=== PATIENT | male | born 1960 | race Caucasian/White ===

== ENCOUNTER 2021-01-02 03:58 | Emergency (ER) | payer OTHER, SELFPAY ==
--- NOTE | ~2021-01-02 | US_ITS ---
EXAMINATION: US ABDOMEN LIMITED CLINICAL INFORMATION: Right upper quadrant pain. COMPARISON: None TECHNIQUE: Real-time imaging of the right upper quadrant abdominal viscera. FINDINGS: PANCREAS: The visualized proximal portion of the pancreas is unremarkable. The distal portion is obscured secondary to overlying bowel gas. LIVER: The liver is normal in size. The liver contour is normal. There is diffusely increased liver parenchymal echogenicity, consistent with hepatic steatosis. Focal sparing is noted near the gallbladder. There is a left hepatic lobe cyst measuring up to 1.5 cm. There is no intrahepatic biliary duct dilatation seen. GALLBLADDER: The gallbladder is physiologically distended without evidence of stones, sludge, polyps, wall thickening or pericholecystic fluid. COMMON BILE DUCT: Normal in caliber measuring 0.5 cm in diameter. RIGHT KIDNEY: No hydronephrosis. No renal calculi or focal parenchymal lesions. The kidney measures 11.9 cm in maximum dimension. FREE FLUID: None. US/US abdomen limited IMPRESSION: 1. No acute findings identified. 2. Hepatic steatosis.
--- NOTE | ~2021-01-02 | XR_ITS ---
EXAMINATION: XR CHEST CLINICAL INFORMATION: Cough COMPARISON: 08/21/2016 TECHNIQUE: Frontal view of the chest was obtained. FINDINGS: Lung volumes are symmetric. No focal consolidation is seen. No evidence of pneumothorax, pleural effusion, or pulmonary edema. The cardiomediastinal contour is unremarkable. No acute osseous findings are seen. XR/XR chest 1V IMPRESSION: No acute cardiopulmonary findings.
[2021-01-02 04:00] VITALS: BP 146/87; BP 170/102; PULSE 85; RESP 27; TEMP 36.5; O2SAT 98; BMI 34.9
--- NOTE | 2021-01-02 04:02 | ECG_ITS ---
Test Reason : CP Blood Pressure : / mmHG Vent. Rate : 081 BPM Atrial Rate : 081 BPM P-R Int : 148 ms QRS Dur : 084 ms QT Int : 402 ms P-R-T Axes : 047 -14 026 degrees QTc Int : 466 ms Sinus rhythm with Premature atrial complexes Otherwise normal ECG No previous ECGs available Referred By: Nicky Cade Electronically Signed By:ABHI TALBOT MD
--- NOTE | 2021-01-02 04:14 | ED_ITS ---
HPI - General Adult General Chief complaint: Abdominal Pain Stated complaint: RIGHT ARM,LOW ABD PAIN Time Seen by Provider: 01/02/21 04:02 Source: patient Mode of arrival: EMS History of Present Illness HPI narrative: This is a 60-year-old male without significant past medical history use brought in by EMS after they were called for acute right arm pain radiating into the back as well into the right upper abdomen without associated nausea, vomiting, urinary symptoms, fevers, chills or numbness/tingling/weakness in the right upper extremity. He states he began becoming more anxious because the pain was not resolving and his called EMS. He denies any recent traveling or calf swelling/redness/pain. Patient denies any smoking or drug history and rarely uses alcohol. EMS gave 4 baby aspirin and nitro EN route. Related Data Home Medications Medication Instructions Recorded Confirmed No Known Home Meds 01/02/21 01/02/21 Allergies Allergy/AdvReac Type Severity Reaction Status Date / Time No Known Allergies Allergy Verified 01/02/21 04:25 Review of Systems Review of Systems: Pertinent positives and negatives as stated in HPI 10 point review of systems is otherwise negative. PMFSH Past Medical History Source: nursing notes reviewed Social History Social History Smoking Status: Never smoker Use of substances other than those prescribed or required for medical reasons: No Advance Directives: No Physical Exam Vital Signs: Vital Signs: Last Vital Signs Temp 97.7 F 01/02/21 04:00 Pulse 85 01/02/21 04:00 Resp 27 H 01/02/21 04:00 BP 146/87 H 01/02/21 04:00 Pulse Ox 98 01/02/21 04:00 Body Mass Index 34.9 VITAL SIGNS: Reviewed. GENERAL: Well developed, well nourished, anxious. HEAD: Normocephalic/atraumatic EYES: PERRLA, EOMI OROPHARYNX: no oral lesions noted, posterior pharynx clear NECK: Supple, no adenopathy LUNGS: Normal breath sounds, tachypnea, No adventitious sounds or accessory muscle use. SpO2<> CARDIOVASCULAR: Regular rate and rhythm without noted murmurs, no JVD or lower extremity edema radial pulses as well as symmetric blood pressures. ABDOMEN: Obese, Soft, non-tender, non-distended with bowel sounds. MUSCULOSKELETAL: No tenderness, deformities, or effusions noted on gross inspection. EXTREMITIES: No erythema, edema, pain SKIN: Inspection of the skin reveals no rashes NEUROLOGIC: Alert and oriented x 4. Strength and sensation to light touch were grossly intact x 4. Course Course Course Narrative: This is a 60-year-old male with history of clinical presentation muscle spasm, gallbladder pathology, less likely pneumonia or cardiac in etiology. Review of all investigations to include ultrasound are negative for evidence of any acute pathology. No clinical suspicion for arterial or venous etiologies based on clinical exam and patient has no risk factors, inconsistent with history/EKG findings unlikely. All results and findings were discussed with patient at bedside and he was discharged home in stable condition with recommendations to follow-up with his primary care provider. Medical Decision Making Lab Data Result diagrams: 01/02/21 04:16 01/02/21 04:16 Labs: Lab Results 01/02/21 01/02/21 01/02/21 Range/Units 04:16 04:16 04:16 WBC 6.8 (4.8-10.8) X10*3/uL RBC 4.54 L (4.60-5.80) X10*6/uL Hgb 14.0 (14.0-18.0) g/dl Hct 43.3 (42-52) % MCV 95.4 (80-98) fL MCH 30.8 (27.0-33.0) pg MCHC 32.3 (31.0-36.0) g/dl RDW 13.4 (11.0-16.0) % Plt Count 220 (160-400) X10*3/uL MPV 9.2 L (9.4-12.4) fL Immature Gran % (Auto) 0.1 (0.0-0.4) % Neut % (Auto) 44.8 L (45-73) % Lymph % (Auto) 42.3 H (20-40) % Cottle % (Auto) 10.5 (2-11) % Eos % (Auto) 1.6 (0-4) % Baso % (Auto) 0.7 (0-2) % Lymph # (Auto) 2.9 (1.2-4.9) X10*3/uL Cottle # (Auto) 0.7 (0.1-1.2) X10*3/uL Eos # (Auto) 0.1 (0.0-0.4) X10*3/uL Baso # (Auto) 0.1 (0.0-0.2) X10*3/uL Abs Immat Gran (auto) 0.01 (0.00-0.03) X10*3/uL Absolute Neuts (auto) 3.1 (2.0-8.3) X10*3/uL Absolute Nucleated RBC 0.000 (0.0-0.012) X10*3/uL Nucleated RBC % (auto) 0.0 (0.0-0.2) /100WBC PT (10.8-13.0) SEC INR (0.9-1.1) D-Dimer NG/ML Sodium 138 (135-145) mmol/L Potassium 4.0 (3.3-5.1) mmol/L Chloride 102 (96-108) mmol/L Carbon Dioxide 24 (22-29) mmol/L Anion Gap 16 (12-20) BUN 15 (9-16) mg/dL Creatinine 1.00 (0.5-1.4) mg/dL Estim Creat Clear Calc 89.6 Estimated GFR > 60 Random Glucose 132 H (60-115) mg/dL Calcium 9.3 (8.4-10.2) mg/dL Total Bilirubin 0.4 (0.0-1.0) mg/dL AST 18 (5-37) U/L ALT 29 (0-40) U/L Alkaline Phosphatase 67 (39-117) U/L Troponin I High Sens < 3.5 (<3.5-35.0) ng/L Total Protein 6.7 (6.5-8.0) g/dL Albumin 4.2 (3.5-5.0) g/dL Lipase 24 (8-78) U/L Urine Color Urine Appearance Urine pH (5.0-8.0) Ur Specific Willard (1.005-1.025) Urine Protein (NEG-TRACE) MG/DL Urine Glucose (UA) (NEG) MG/DL Urine Ketones (NEG) MG/DL Urine Blood (NEG) Urine Nitrite (NEG) Ur Leukocyte Esterase (NEG) Urine RBC (0) /HPF Urine WBC (0-4) /HPF Ur Squamous Epith Cells /LPF Urine Bacteria /LPF Hyaline Casts /LPF Urine Mucus /LPF 01/02/21 01/02/21 Range/Units 04:16 04:20 WBC (4.8-10.8) X10*3/uL RBC (4.60-5.80) X10*6/uL Hgb (14.0-18.0) g/dl Hct (42-52) % MCV (80-98) fL MCH (27.0-33.0) pg MCHC (31.0-36.0) g/dl RDW (11.0-16.0) % Plt Count (160-400) X10*3/uL MPV (9.4-12.4) fL Immature Gran % (Auto) (0.0-0.4) % Neut % (Auto) (45-73) % Lymph % (Auto) (20-40) % Cottle % (Auto) (2-11) % Eos % (Auto) (0-4) % Baso % (Auto) (0-2) % Lymph # (Auto) (1.2-4.9) X10*3/uL Cottle # (Auto) (0.1-1.2) X10*3/uL Eos # (Auto) (0.0-0.4) X10*3/uL Baso # (Auto) (0.0-0.2) X10*3/uL Abs Immat Gran (auto) (0.00-0.03) X10*3/uL Absolute Neuts (auto) (2.0-8.3) X10*3/uL Absolute Nucleated RBC (0.0-0.012) X10*3/uL Nucleated RBC % (auto) (0.0-0.2) /100WBC PT 13.4 H (10.8-13.0) SEC INR 1.1 (0.9-1.1) D-Dimer < 200 NG/ML Sodium (135-145) mmol/L Potassium (3.3-5.1) mmol/L Chloride (96-108) mmol/L Carbon Dioxide (22-29) mmol/L Anion Gap (12-20) BUN (9-16) mg/dL Creatinine (0.5-1.4) mg/dL Estim Creat Clear Calc Estimated GFR Random Glucose (60-115) mg/dL Calcium (8.4-10.2) mg/dL Total Bilirubin (0.0-1.0) mg/dL AST (5-37) U/L ALT (0-40) U/L Alkaline Phosphatase (39-117) U/L Troponin I High Sens (<3.5-35.0) ng/L Total Protein (6.5-8.0) g/dL Albumin (3.5-5.0) g/dL Lipase (8-78) U/L Urine Color DARK YELLOW Urine Appearance HAZY Urine pH 5.5 (5.0-8.0) Ur Specific Willard >= 1.030 H (1.005-1.025) Urine Protein NEG (NEG-TRACE) MG/DL Urine Glucose (UA) NEG (NEG) MG/DL Urine Ketones NEG (NEG) MG/DL Urine Blood TRACE (NEG) Urine Nitrite NEG (NEG) Ur Leukocyte Esterase NEG (NEG) Urine RBC 0-2 (0) /HPF Urine WBC 1-4 (0-4) /HPF Ur Squamous Epith Cells 1+ /LPF Urine Bacteria NONE /LPF Hyaline Casts 0-2 /LPF Urine Mucus 3+ /LPF ECG Data Attestation: I personally reviewed and interpreted this ECG as follows: Prior ECG tracings: not available for review Interpretation: Normal sinus rhythm, HR-81, no evidence of acute ischemia, PA/QRS/QTC are within normal limits. Discharge Plan Discharge Clinical Impression: Arm pain Qualifiers: Laterality: right Qualified Code(s): M79.601 - Pain in right arm Patient Disposition: Home, Self-Care Instructions: Muscle Spasm (ED), Arm Pain (ED) Additional Instructions: Please follow-up with your primary care provider as scheduled. Do not hesitate to return to the emergency department for any acute worsening or change in your symptoms. Prescriptions: No Action No Known Home Meds RF: 0 Referrals: Oziel Elliott MD [Primary Care Provider] - 2 days (Re-evaluation after unexposed couple right shoulder pain,?Passed kidney stone but otherwise negative workup.)
[2021-01-02 04:24] LABS: Basophils Absolute Auto 0.1 X10*3/uL (0.0-0.2); Basophils Percent Auto 0.7 % (0-2); Eosinophils Absolute Auto 0.1 X10*3/uL (0.0-0.4); Eosinophils Percent Auto 1.6 % (0-4); Hematocrit 43.3 % (42-52); Imm Gran Abs Auto 0.01 X10*3/uL (0.00-0.03); Imm Gran Pct Auto 0.1 % (0.0-0.4); Lymphocytes Absolute Auto 2.9 X10*3/uL (1.2-4.9); Lymphocytes Percent Auto 42.3 % (20-40); MANUAL DIFF FLAG NO; Mean Corpuscular HGB Conc 32.3 g/dl (31.0-36.0); Mean Corpuscular Hemoglobin 30.8 pg (27.0-33.0); Mean Corpuscular Volume 95.4 fL (80-98); Mean Platelet Volume 9.2 fL (9.4-12.4); Monocytes Absolute Auto 0.7 X10*3/uL (0.1-1.2); Monocytes Percent Auto 10.5 % (2-11); Neutrophils Absolute Auto 3.1 X10*3/uL (2.0-8.3); Neutrophils Percent Auto 44.8 % (45-73); Platelet Count 220 X10*3/uL (160-400); Red Blood Count 4.54 X10*6/uL (4.60-5.80); Red Cell Distribution Width 13.4 % (11.0-16.0); White Blood Count 6.8 X10*3/uL (4.8-10.8)
[2021-01-02 04:27] LABS: Appearance Urine HAZY; Color Urine DARK YELLOW; Glucose Urine UA NEG (NEG); Leukocyte Esterase Urine NEG (NEG); Nitrite Urine NEG (NEG); PH 5.5 (5.0-8.0); Specific Gravity - Urine >= 1.030 (1.005-1.025); Urine Blood TRACE (NEG); Urine Ketones NEG (NEG); Urine Protein NEG (NEG-TRACE)
[2021-01-02 04:35] LABS: INTERNATIONAL NORM RATIO 1.1 (0.9-1.1); Prothrombin Time 13.4 SEC (10.8-13.0)
[2021-01-02 04:35] LABS: RBC Urine 0-2 /HPF (0); Squamous Epithelial Cell Urine 1+ /LPF
[2021-01-02 04:36] LABS: Hyaline Casts Urine 0-2 /LPF; Mucus Urine 3+ /LPF
[2021-01-02 04:48] LABS: Alanine Aminotransferase 29 U/L (0-40); Albumin Level 4.2 g/dL (3.5-5.0); Alkaline Phosphatase 67 U/L (39-117); Anion Gap 16 (12-20); Aspartate Amino Transferase 18 U/L (5-37); Bilirubin Total 0.4 mg/dL (0.0-1.0); Blood Urea Nitrogen 15 mg/dL (9-16); Calcium 9.3 mg/dL (8.4-10.2); Carbon Dioxide 24 mmol/L (22-29); Chloride 102 mmol/L (96-108); Creatinine Clr Calc Pharmacy 89.6; Estimated Glomerular Filt Rate > 60; Glucose Random 132 mg/dL (60-115); Lipase 24 U/L (8-78); Sodium 138 mmol/L (135-145); Total Protein 6.7 g/dL (6.5-8.0)
[2021-01-02 04:51] LABS: Troponin-I High Sensitivity < 3.5 ng/L (<3.5-35.0)
[2021-01-02 05:23] LABS: D Dimer < 200 NG/ML
[2021-01-02] MEDS: Acetaminophen 325 MG TABLET 975 MG PO (06:01)
--- NOTE | 2021-01-02 06:44 | PC.NURSE ---
Pt arrived by [facility] after calling 911 for right shoulder pain. Pt denies chest pain/sob/diff breathing/nausea vomiting. Per ems: pt was hypertensive, treated with 324mg asa and 0.4mg tab nitro. pt stated pain was unresolved by treatment. IV 18g Lac Skin p/w/d. reported tylenol for pain control was effective. awaiting us at this time.
== END 2021-01-02 06:55 | disposition home or self-care (01) ==
PROVIDERS: Emergency Provider Student in an Organized Health Care Education/Training Program; PCP Internal Medicine
DX: M79.601 Pain in right arm (principal)
CPT/HCPCS: 36415; 71045; 76705; 80053; 81001; 83690; 84484; 85025; 85379; 85610; 93005; 99284

== ENCOUNTER 2021-01-11 06:18 | Outpatient (REF) | payer OTHER, SELFPAY ==
[2021-01-11 07:14] LABS: MANUAL DIFF FLAG NO
[2021-01-11 07:21] LABS: Basophils Absolute Auto 0.1 X10*3/uL (0.0-0.2); Basophils Percent Auto 0.8 % (0-2); Eosinophils Absolute Auto 0.1 X10*3/uL (0.0-0.4); Eosinophils Percent Auto 1.6 % (0-4); Hematocrit 47.1 % (42-52); Hemoglobin 15.3 g/dl (14.0-18.0); Imm Gran Abs Auto 0.03 X10*3/uL (0.00-0.03); Imm Gran Pct Auto 0.4 % (0.0-0.4); Lymphocytes Absolute Auto 2.3 X10*3/uL (1.2-4.9); Lymphocytes Percent Auto 30.3 % (20-40); Mean Corpuscular HGB Conc 32.5 g/dl (31.0-36.0); Mean Corpuscular Volume 95.3 fL (80-98); Mean Platelet Volume 9.6 fL (9.4-12.4); Monocytes Absolute Auto 0.7 X10*3/uL (0.1-1.2); Monocytes Percent Auto 9.5 % (2-11); Neutrophils Absolute Auto 4.4 X10*3/uL (2.0-8.3); Neutrophils Percent Auto 57.4 % (45-73); Platelet Count 249 X10*3/uL (160-400); Red Blood Count 4.94 X10*6/uL (4.60-5.80); Red Cell Distribution Width 13.5 % (11.0-16.0); White Blood Count 7.7 X10*3/uL (4.8-10.8)
[2021-01-11 07:52] LABS: Alanine Aminotransferase 32 U/L (0-40); Albumin Level 4.6 g/dL (3.5-5.0); Alkaline Phosphatase 79 U/L (39-117); Anion Gap 15 (12-20); Aspartate Amino Transferase 21 U/L (5-37); Blood Urea Nitrogen 17 mg/dL (9-16); Calcium 9.5 mg/dL (8.4-10.2); Carbon Dioxide 27 mmol/L (22-29); Chloride 100 mmol/L (96-108); Cholesterol 182 mg/dL; Estimated Glomerular Filt Rate > 60; Glucose Fasting 100 mg/dL (60-99); HDL Cholesterol 40 mg/dL; LDL Cholesterol Calculated 119 mg/dl; Sodium 138 mmol/L (135-145); Total Protein 7.7 g/dL (6.5-8.0); Triglycerides 117 mg/dL; Troponin-I High Sensitivity < 3.5 ng/L (<3.5-35.0)
== END 2021-01-11 06:19 | disposition home or self-care (01) ==
LOC: HO.LAB 06:18
PROVIDERS: PCP Nurse Practitioner Family; Visit Provider Nurse Practitioner Family
DX: R07.9 Chest pain, unspecified (principal)
CPT/HCPCS: 36415; 80053; 80061; 84484; 85025

== ENCOUNTER → 2021-01-16 09:08 | Outpatient (REF) | payer OTHER, SELFPAY ==
--- NOTE | 2021-01-16 09:12 | CA_ITS ---
Acquisition Time: 2021-01-16 09:40:28 Total Exercise Time: 00:07:01 Test Indications: chest pain Medications: Protocol: DARRELL Max HR: 166 BPM 105% of Pred: 158 BPM Max BP: 156/098 mmHG Max Work Load: 8.5 METS Exercise stress test using Darrell protocol. Total of 7 min 1 sec. METS 8.50, TAPHR up to 103 %. EKG with isolated PVC's. No ischemic changes seen during exercise or in recovery period. Normotensive response to exercise. Test reviewed with Dr. Shah. Referred By: Radha Dailey Overread By: Dorinda Malik NP
== END ==
LOC: HO.CARD 09:08
PROVIDERS: Visit Provider Nurse Practitioner Family
DX: R07.9 Chest pain, unspecified (principal)
CPT/HCPCS: 93016; 93017; 93018

== ENCOUNTER → 2021-01-26 09:03 | Outpatient (BNVA) | payer OTHER, SELFPAY | PROVIDERS: PCP Nurse Practitioner Family; Visit Provider Internal Medicine ==

== ENCOUNTER → 2021-02-01 08:30 | Outpatient (REF) | payer OTHER, SELFPAY ==
--- NOTE | ~2021-02-01 | NM_ITS ---
EXERCISE MYOCARDIAL PERFUSION STUDY INDICATION: Chest pain, assess for coronary disease and ischemia TECHNIQUE: The patient was brought in for an exercise perfusion study on 02/01/2021. Patient performed exercise as per Gio protocol and was injected 35 mCi of sestamibi once target heart rate was achieved. Images were obtained using the SPECT gamma camera interlaced with the gating device. Images were obtained in supine position. Resting perfusion study was performed on 02/02/2021. Patient was administered 35 mCi of sestamibi intravenously at rest. Images were then obtained in supine position. Total DLP 82mGy-cm. Images were processed with the software and compared side to side in short axis, horizontal long axis and vertical long axis views. FINDINGS: Raw images were reviewed. The stress perfusion study showed no significant perfusion abnormality. Both uncorrected as well as CT attenuation corrected images were reviewed. The gated study shows normal LV systolic function with calculated LVEF of > 70%. LV cavity is normal in size. The gated study shows normal wall thickening and contraction of segments. Resting study shows no significant perfusion abnormality. Both uncorrected as well as CT attenuation corrected images were reviewed. Gating at rest reveals normal wall motion with ejection fraction at 71%. The findings are consistent with no reversible or fixed perfusion abnormality. NM/NM cardiolite stress test IMPRESSION: 1. Myocardial perfusion imaging study shows normal myocardial perfusion. No evidence of any ischemia or infarction. 2. Gated LVEF is > 70% during stress and rest. 3. Transient ischemic dilatation not present. EKG component of the test reported separately.
--- NOTE | 2021-02-01 08:30 | CA_ITS ---
Acquisition Time: 2021-02-01 08:39:41 Total Exercise Time: 00:05:21 Test Indications: Dyspnea Medications: CYCLOBENZAPRINE ESCITALOPRAM LISINOPRIL OMEPRAZOLE Protocol: DARRELL Max HR: 144 BPM 91% of Pred: 158 BPM Max BP: 166/102 mmHG Max Work Load: 7.0 METS Exercise stress nuclear using Darrell protocol. Total of 5 min 21 sec. Pt tolerated well, denies any anginal sx. EKG with frequent PAC's after exercise. No ischemic changes seen during exercise or in recovery. Nuclear images to follow. Hypertensive response to exercise. Test reviewed with Dr. Joiner Referred By: Sean Joiner Overread By: Dorinda Malik NP
== END ==
LOC: HO.CARD 08:30
PROVIDERS: Visit Provider Internal Medicine
DX: R07.2 Precordial pain (principal); R06.02 Shortness of breath
CPT/HCPCS: 78452; 93016; 93017; 93018; A9500

== ENCOUNTER → 2021-03-09 08:17 | Outpatient (REF) | payer OTHER, SELFPAY ==
--- NOTE | 2021-03-09 08:20 | CA_ITS ---
Transthoracic Echocardiogram Patient (Last, First, Middle): Tank Ledezma, Gender: Male Date of : 1960 Age: 60 Procedure Date: 03/09/2021 Procedure Type: Transthoracic Echocardiogram Location: OP Height: 172.72 cm Weight: 106.14 kg BSA: 2.18 m2 Heart Rate: bpm BP: 116 / 79 mmHg Counter Intelligence: IBAN Turner MD: Sean Joiner MD Hand Braille Transcriber: Leobardo Shah MD Symptoms: R07.2 - Precordial pain Study Quality: Good ECG Rhythm: Sinus Conclusions: - 1. [id number] dilatation of ascending aorta at 4.4 cm with effacement of sinotubular junction 2. Normal LV systolic function with grade 1 diastolic dysfunction 3. Mild eccentric aortic regurgitation 4. Normal RV systolic pressure 5. No pericardial effusion Findings Procedure Information The patient receives contrast. Left Ventricle Normal left ventricular size, thickness, and systolic function. The visually estimated ejection fraction is between 60-65%. Spectral Doppler is indicative of an impaired relaxation filling pattern. E/E prime ratio is <8, consistent with normal filling pressures. Evidence suggests grade I (mild) diastolic dysfunction. Right Ventricle Normal right ventricular cavity size and systolic function. Atria The left atrium is normal in size. There is no evidence of interatrial shunt. The right atrium is normal in size. Aortic Valve Normal aortic valve structure and function. There is no aortic valve stenosis. There is mild aortic valve regurgitation. Mitral Valve Likely normal mitral valve structure and function. There is trace mitral valve regurgitation. There is no mitral valve stenosis. Pulmonic Valve The pulmonic valve is likely normal. Tricuspid Valve Likely normal tricuspid valve structure and function. There is trace tricuspid valve regurgitation. The right ventricular systolic pressure is normal. The right ventricular systolic pressure is 25 mmHg. Normal right atrial pressure. There is no evidence of pulmonary hypertension. Great Vessels The pulmonary artery was not well visualized. There is moderate dilatation of the ascending aorta measuring 4.40 cm. Venous The inferior vena cava is normal in size and collapses greater than 50% with inspiration. Pericardium/Pleural There is no evidence of pericardial effusion. Prior Study Comparison No prior study available for comparison. Measurements 2D Linear Measurements RVIDd: 3.08 RVIDd Index: 1.41 IVSd: 0.98 0.6-0.9/0.6-1.0 cm LVIDd: 5.42 3.9-5.3/4.2-5.9 cm LVIDd Index: 2.49 2.4-3.2/2.2-3.1 cm/m2 LVIDs: 3.83 2.0-3.6 cm LVPWd: 1.00 0.7-1.1 cm Ao Root: 3.40 2.1-3.5 cm LA Diam: 3.50 2.7-3.8/3.0-4.0 cm LAIDs Index: 1.61 1.5-2.3 cm/m2 LV Mass: 256.01 67-162/88-224 g LV Mass Index: 117.44 43-95/49-115 g/m2 LVOT Diam: 2.20 3.0+(-)1.3 cm 2D Systolic Function EF 4C: 58.80 >55% EF 2C: 59.20 >55% EF BiP: 57.90 >55% Mitral Valve MV Pk E: 0.50 MV PK A: 0.71 MV Decel Time: 275.00 E/A: 0.70 E'Lateral: 6.85 E'Medial: 5.44 E/E' Med: 9.10 E/E' Lat: 7.30 Aortic Valve AoV Pk Liam: 1.27 AoV Mn Liam: 0.93 AoV VTI: 0.22 AoV Pk Grad: 6.00 Aov Mn Grad: 4.00 MADDY Cont.VTI: 3.57 LVOT LVOT Pk Liam: 1.32 LVOT Mn Liam: 0.84 LVOT VTI: 0.21 LVOT Pk Grad: 7.00 LVOT Mn Grad: 3.00 LVOT Diam: 2.20 LVOT Area: 3.80 Diastolic Function MV Pk E: 0.50 MV Pk A: 0.71 E/A: 0.70 E'Medial: 5.44 E/E' Med: 9.10 E' Laterial: 6.85 E/E' Lat: 7.30 Tricuspid Valve TR Pk Liam: 2.35 TR Pk Grad: 22.00 RA Press: 3.00 RVSP: 25.00 Great Vessels Aorta Ao Root-2D: 3.40 2.0-3.7 cm Ao Asc: 4.40 2.1-3.4 cm Ao Arch: 4.30 Updated in Other Vendor System with Status of Final Leobardo Shah MD electronically signed on 03/10/2021 3:41:36 PM with status of Final
== END ==
LOC: HO.CARD 08:17
PROVIDERS: Visit Provider Internal Medicine
DX: R07.2 Precordial pain (principal)
CPT/HCPCS: 93306; Q9957

== ENCOUNTER → 2021-03-16 14:12 | Outpatient (BNVA) | payer OTHER, SELFPAY | PROVIDERS: PCP Internal Medicine; Visit Provider Internal Medicine | DX: I71.2 Thoracic aortic aneurysm, without rupture (principal); R07.2 Precordial pain; I10 Essential (primary) hypertension | CPT/HCPCS: 99212 ==

== ENCOUNTER 2021-06-16 06:44 | Outpatient (REF) | payer OTHER, SELFPAY ==
[2021-06-16 07:46] LABS: Alanine Aminotransferase 27 U/L (0-40); Albumin Level 4.3 g/dL (3.5-5.0); Alkaline Phosphatase 70 U/L (39-117); Anion Gap 13 (12-20); Aspartate Amino Transferase 18 U/L (5-37); Bilirubin Total 0.4 mg/dL (0.0-1.0); Blood Urea Nitrogen 14 mg/dL (9-16); Calcium 9.5 mg/dL (8.4-10.2); Carbon Dioxide 28 mmol/L (22-29); Chloride 104 mmol/L (96-108); Cholesterol 188 mg/dL; Estimated Glomerular Filt Rate > 60; Glucose Fasting 96 mg/dL (60-99); HDL Cholesterol 43 mg/dL; LDL Cholesterol Calculated 123 mg/dl; Potassium 4.5 mmol/L (3.3-5.1); Sodium 140 mmol/L (135-145); Total Protein 7.1 g/dL (6.5-8.0); Triglycerides 110 mg/dL
[2021-06-16 08:08] LABS: Prostate Specific Antigen 1.33 ng/mL (<0.05-4.0); Vitamin D 25-OH Total 35.7 ng/mL (>30)
== END 2021-06-16 06:45 | disposition home or self-care (01) ==
LOC: HO.LAB 06:44
PROVIDERS: Absent Provider Internal Medicine; PCP Internal Medicine; Visit Provider Internal Medicine
DX: Z00.00 Encounter for general adult medical examination without abnormal findings (principal); Z12.5 Encounter for screening for malignant neoplasm of prostate; E78.5 Hyperlipidemia, unspecified; E55.9 Vitamin D deficiency, unspecified; I71.2 Thoracic aortic aneurysm, without rupture
CPT/HCPCS: 36415; 80053; 80061; 82306; 84153

== ENCOUNTER 2021-06-20 08:38 | Outpatient (REF) | payer OTHER, SELFPAY ==
--- NOTE | ~2021-06-20 | CT_ITS ---
EXAMINATION: CT ANGIOGRAM CHEST CLINICAL INFORMATION: This is a 60-year-old male with thoracic aortic aneurysm without rupture. COMPARISON: None TECHNIQUE: Multiple axial images were obtained through the chest after the administration of 70 mL of Omnipaque 350 intravenous contrast. Extensive vascular post-processing including two-dimensional and three-dimensional reformatted images were created and reviewed on an independent workstation. This CT examination was performed using dose optimization techniques as appropriate, variously including the following: *Automated exposure control *Adjustment of mA and/or kV according to patient size (this includes techniques or standardized protocols for targeted exams where dose is matched to indication/reason for exam; i.e. extremities or head) *Use of iterative reconstruction technique DLP: 189 mGy-cm FINDINGS: VASCULAR FINDINGS: There is enlargement of the ascending aorta. Measurements were calculated in centimeters are as follows: At the aortic root: 4.0 x 4.5 cm. Distal ascendin.3 x 4.3 cm. Transverse arch: 2.8 x 3.0 cm. Proximal descending 2.8 x 3.0 cm. Distal descendin.5 x 2.6 cm. No aortic dissection is seen. A normal branching aortic arch is seen with a common origin to the left common carotid artery and brachiocephalic artery, respectively. Scattered calcified atherosclerotic disease is seen within the aortic arch. The celiac artery appears patent. The superior mesenteric artery appears patent. NONVASCULAR FINDINGS: LUNGS: The lungs are clear with no evidence of inflammation or nodules. MEDIASTINUM: No bulky mediastinal adenopathy is seen. There is a left atrial appendage present. No pericardial effusion is seen. PLEURA: There is no pleural effusion. No pleural mass or thickening. AXILLA: No lymphadenopathy. There is a 1 cm subcutaneous soft tissue density along the left anterior chest wall. This is seen to the left of the midline. The etiology is unclear. Clinical correlation is recommended. VISUALIZED UPPER ABDOMEN: There is diffuse low density to the liver which may represent hepatic steatosis. There is a 1 cm x 1.5 cm low-density area seen in segment 2 of the liver. This is too small and only partially visualized and cannot be adequately characterize. The initial step in evaluation could be an ultrasound of the liver. OSSEOUS STRUCTURES: Diffuse degenerative disc disease changes are noted in the thoracic spine. CT/CT angio chest IMPRESSION: 1. The maximum diameter of the ascending thoracic aorta again measures 4.0 x 4.5 cm. This is aneurysmal for a patient of this age as noted below from the standard measurements. 2. Probable hepatic steatosis. 3. There is a 1 cm subcutaneous soft tissue density along the left anterior chest wall. Clinical correlation is recommended. 4. There is a 1.5 cm low-density area in segment 2 of the liver. Ultrasound is recommended. Normal aortic diameters (in millimeters) Ascending aorta: 31+0.16 x age. Descending aorta: 21+0.16 x age. Reference: [employer] J 2006 Shannan; 40 (3): 175-178
[2021-06-20] MEDS: iohexoL 350 MG/ML 100 ML INFUS..BTL IV (10:02)
== END 2021-06-20 08:39 | disposition home or self-care (01) ==
LOC: HO.CT 08:38
PROVIDERS: Visit Provider Internal Medicine
DX: I71.2 Thoracic aortic aneurysm, without rupture (principal)
CPT/HCPCS: 71275; Q9967

== ENCOUNTER → 2021-06-28 13:19 | Outpatient (BNVA) | payer OTHER, SELFPAY | PROVIDERS: PCP Internal Medicine; Referring Provider Internal Medicine; Visit Provider Internal Medicine | DX: I71.2 Thoracic aortic aneurysm, without rupture (principal); I10 Essential (primary) hypertension; R07.2 Precordial pain | CPT/HCPCS: 99212 ==

== ENCOUNTER → 2021-11-01 10:43 | Outpatient (BNVA) | payer OTHER, SELFPAY | PROVIDERS: PCP Internal Medicine; Visit Provider Urology | DX: N48.6 Induration penis plastica (principal) | CPT/HCPCS: 99202 ==

== ENCOUNTER 2021-11-01 11:44 | Outpatient (REF) | payer OTHER, SELFPAY ==
[2021-11-06 14:06] LABS: Testosterone, Total 164 ng/dL (250-1100)
== END 2021-11-01 11:45 | disposition home or self-care (01) ==
LOC: HO.10HDL 11:44
PROVIDERS: Visit Provider Urology
DX: E29.1 Testicular hypofunction (principal); N48.6 Induration penis plastica
CPT/HCPCS: 36415; 84402; 84403

== ENCOUNTER → 2021-12-07 07:32 | Outpatient (REF) | payer OTHER, SELFPAY ==
--- NOTE | 2021-12-07 07:34 | CA_ITS ---
Transthoracic Echocardiogram Patient (Last, First, Middle): Tank Ledezma, Gender: Male Date of : 1960 Age: 61 Procedure Date: 12/07/2021 Procedure Type: Transthoracic Echocardiogram Location: OP Height: 177.8 cm Weight: 110.22 kg BSA: 2.27 m2 Heart Rate: bpm BP: 115 / 80 mmHg Communications Planner: ANNAMARIE Turner MD: Sean Joiner MD Clinical Professor: Leobardo Shah MD Symptoms: I71.2 - Thoracic aortic aneurysm, without rupture Study Quality: Fair/Contrast ECG Rhythm: Sinus Conclusions: - 1. Normal LV systolic function with grade 1 diastolic dysfunction 2. Trivial aortic regurgitation 3. Dilated ascending aorta at 4.4 cm, unchanged from before 4. Normal RV systolic pressure 5. No pericardial effusion Findings Procedure Information Contrast agent, definity, is being given per protocol without apparent complications. Left Ventricle Normal left ventricular size, thickness, and systolic function. The visually estimated ejection fraction is between 55-60%. Spectral Doppler is indicative of an impaired relaxation filling pattern. E/E prime ratio is <8, consistent with normal filling pressures. Evidence suggests grade I (mild) diastolic dysfunction. Right Ventricle Normal right ventricular cavity size and systolic function. Atria Both atria are normal in size. There is no evidence of interatrial shunt. Aortic Valve Normal aortic valve structure and function. There is no aortic valve stenosis. There is trace (trivial) aortic valve regurgitation. Mitral Valve Normal mitral valve structure and function. There is trace mitral valve regurgitation. There is no mitral valve stenosis. Pulmonic Valve The pulmonic valve is likely normal. There is trace pulmonic valve regurgitation. Tricuspid Valve Normal tricuspid valve structure. There is mild tricuspid valve regurgitation. The right ventricular systolic pressure is normal. The right ventricular systolic pressure is 35 mmHg. Normal right atrial pressure. There is no evidence of pulmonary hypertension. Great Vessels There is mild dilatation of the ascending aorta measuring 4.40 cm. Venous The inferior vena cava is normal in size and collapses greater than 50% with inspiration. Pericardium/Pleural There is no evidence of pericardial effusion. Prior Study Comparison No significant change compared to prior study dated: 03/09/2021. Measurements 2D Linear Measurements IVSd: 1.10 0.6-0.9/0.6-1.0 cm LVIDd: 4.52 3.9-5.3/4.2-5.9 cm LVIDd Index: 1.99 2.4-3.2/2.2-3.1 cm/m2 LVIDs: 2.73 2.0-3.6 cm LVPWd: 1.03 0.7-1.1 cm Ao Root: 4.30 2.1-3.5 cm LA Diam: 3.40 2.7-3.8/3.0-4.0 cm LAIDs Index: 1.50 1.5-2.3 cm/m2 LV Mass: 209.80 67-162/88-224 g LV Mass Index: 92.42 43-95/49-115 g/m2 LVOT Diam: 2.20 3.0+(-)1.3 cm 2D Systolic Function EF 4C: 58.80 >55% EF 2C: 56.00 >55% EF BiP: 57.60 >55% Aortic Valve AoV Pk Liam: 1.23 AoV Mn Liam: 0.84 AoV VTI: 0.25 AoV Pk Grad: 6.00 Aov Mn Grad: 3.00 MADDY Cont.VTI: 2.99 LVOT LVOT Pk Liam: 0.93 LVOT Mn Liam: 0.65 LVOT VTI: 0.19 LVOT Pk Grad: 3.00 LVOT Mn Grad: 2.00 LVOT Diam: 2.20 LVOT Area: 3.80 Right Ventricle TAPSE (mm): 26.00 TVS' Liam: 13.30 Tricuspid Valve TR Pk Liam: 2.59 TR Pk Grad: 27.00 RA Press: 8.00 RVSP: 35.00 Great Vessels Aorta Ao Root-2D: 4.30 2.0-3.7 cm Ao Asc: 4.40 2.1-3.4 cm Ao Arch: 3.60 Updated in Other Vendor System with Status of Final Leobardo Shah MD electronically signed on 12/08/2021 3:50:44 PM with status of Final
== END ==
LOC: HO.CARD 07:32
PROVIDERS: PCP Internal Medicine; Visit Provider Internal Medicine
DX: I71.2 Thoracic aortic aneurysm, without rupture (principal)
CPT/HCPCS: 93306; Q9957

== ENCOUNTER → 2022-02-21 09:34 | Outpatient (BNVA) | payer OTHER, SELFPAY | PROVIDERS: PCP Internal Medicine; Referring Provider Internal Medicine; Visit Provider Internal Medicine | DX: I71.2 Thoracic aortic aneurysm, without rupture (principal); I10 Essential (primary) hypertension; Z79.899 Other long term (current) drug therapy | CPT/HCPCS: 93005; 99212 ==

== ENCOUNTER 2022-03-06 19:27 | Inpatient (IN) | payer OTHER, SELFPAY ==
--- NOTE | ~2022-03-06 | XR_ITS ---
EXAMINATION: XR CHEST CLINICAL INFORMATION: Cough COMPARISON: 01/02/2021 TECHNIQUE: Frontal view of the chest was obtained. FINDINGS: No significant abnormality is noted involving the heart, lungs, mediastinum, bony thorax or soft tissues. XR/XR chest 1V IMPRESSION: Unremarkable examination.
--- NOTE | ~2022-03-06 | CT_ITS ---
EXAMINATION: CT ABDOMEN AND PELVIS WITHOUT CONTRAST CLINICAL INFORMATION: Diffuse abdominal pain COMPARISON: Ultrasound abdomen 01/02/2021, CT angiogram chest 06/20/2021 TECHNIQUE: Multidetector volumetric imaging was performed from the superior aspect of the liver through the pubic symphysis. Sagittal and coronal reformatted images were obtained on the technologist's workstation. This CT examination was performed using dose optimization techniques as appropriate, variously including the following: *Automated exposure control *Adjustment of mA and/or kV according to patient size (this includes techniques or standardized protocols for targeted exams where dose is matched to indication/reason for exam; i.e. extremities or head) *Use of iterative reconstruction technique DLP: 872 mGy-cm FINDINGS: LUNG BASES: The visualized lung bases are unremarkable. LIVER, GALLBLADDER, AND BILIARY TREE: The liver is normal in size, shape, and attenuation. There is a benign simple cyst in the left lobe of the liver. No suspicious solid focal hepatic lesion or biliary ductal dilatation is present. The gallbladder is contracted but otherwise unremarkable with no evidence of radiopaque gallstones, gallbladder wall thickening, or obvious pericholecystic inflammatory changes. PANCREAS: Unremarkable. SPLEEN: Unremarkable. ADRENAL GLANDS: Unremarkable. KIDNEYS AND URETERS: The kidneys are normal in size, shape, and attenuation. No hydronephrosis, hydroureter, or calculi seen. No perinephric stranding. BLADDER: Unremarkable. GASTROINTESTINAL TRACT: A small hiatal hernia is present. The small and large bowel are unremarkable. The appendix is abnormal. It is dilated at 1.4 cm. There is high density material within the proximal portion. There is a small locule of air seen distally. Some periappendiceal inflammatory changes are present. No extraluminal gas or periappendiceal fluid collections are seen.. ABDOMINAL WALL: No significant hernia is appreciated. LYMPH NODES: No retroperitoneal lymphadenopathy. VASCULAR: Minimal calcific plaque without aneurysm PELVIC VISCERA: Unremarkable. OSSEOUS STRUCTURES: Mild degenerative changes present in the spine without bony destructive lesions. CT/CT abdomen pelvis wo con IMPRESSION: Findings are suggestive of very early uncomplicated appendicitis with a dilated appendix with high density material within the lumen and some mild periappendiceal inflammatory changes. Other incidental findings as described above. Fleischner guidelines were followed.
[2022-03-06 21:16] VITALS: BP 130/80; PULSE 76; RESP 18; TEMP 36.6; O2SAT 95; BMI 35.9
[2022-03-06 21:27] LABS: MANUAL DIFF FLAG NO
[2022-03-06 21:28] LABS: Basophils Percent Auto 0.2 % (0-2); Eosinophils Percent Auto 0.2 % (0-4); Hematocrit 44.2 % (42.0-52.0); Hemoglobin 14.7 g/dl (14.0-18.0); Imm Gran Abs Auto 0.04 X10*3/uL (0.00-0.03); Imm Gran Pct Auto 0.3 % (0.0-0.4); Lymphocytes Percent Auto 7.6 % (20-40); Mean Corpuscular HGB Conc 33.3 g/dl (31.0-36.0); Mean Corpuscular Hemoglobin 30.8 pg (27.0-33.0); Mean Corpuscular Volume 92.7 fL (80.0-98.0); Mean Platelet Volume 9.2 fL (9.4-12.4); Monocytes Absolute Auto 0.6 X10*3/uL (0.1-1.2); Monocytes Percent Auto 4.4 % (2-11); Neutrophils Percent Auto 87.3 % (45-73); Platelet Count 228 X10*3/uL (160-400); Red Blood Count 4.77 X10*6/uL (4.60-5.80); Red Cell Distribution Width 13.6 % (11.0-16.0); White Blood Count 12.5 X10*3/uL (4.8-10.8)
[2022-03-06 21:43] LABS: Alanine Aminotransferase 23 U/L (0-40); Albumin Level 4.3 g/dL (3.5-5.0); Alkaline Phosphatase 74 U/L (39-117); Anion Gap 14 (12-20); Aspartate Amino Transferase 16 U/L (5-37); Bilirubin Total 0.6 mg/dL (0.0-1.0); Blood Urea Nitrogen 13 mg/dL (9-16); Calcium 9.9 mg/dL (8.4-10.2); Carbon Dioxide 25 mmol/L (22-29); Chloride 101 mmol/L (96-108); Creatinine Clr Calc Pharmacy 98.2; Estimated Glomerular Filt Rate > 60; Glucose Random 126 mg/dL (60-115); Potassium 4.5 mmol/L (3.3-5.1); Sodium 135 mmol/L (135-145); Total Protein 7.6 g/dL (6.5-8.0)
[2022-03-06 21:44] LABS: COVID-19 Test Negative (Negative); IDNOW Serial# 08D9AD1C; Influenza A Negative (Negative); Influenza B2 Negative (Negative)
[2022-03-06 23:33] VITALS: BP 88/58; PULSE 74; RESP 24; O2SAT 93
--- NOTE | 2022-03-06 23:48 | ECG_ITS ---
Test Reason : ABDOMINAL PAIN Blood Pressure : / mmHG Vent. Rate : 073 BPM Atrial Rate : 073 BPM P-R Int : 164 ms QRS Dur : 090 ms QT Int : 418 ms P-R-T Axes : 062 -10 025 degrees QTc Int : 460 ms Normal sinus rhythm Normal ECG When compared with ECG of 02-JAN-2021 03:05, Premature atrial complexes are no longer Present Referred By: Nicky Cade Electronically Signed By:SHUBHAM TRAYLOR
[2022-03-06 23:51] VITALS: BP 114/72
[2022-03-07] VITALS (22 sets, daily range): BP systolic 99–135; BP diastolic 58–83; PULSE 73–91; RESP 18–24; TEMP 36.3–37.3; O2SAT 85–99
[2022-03-07] MEDS: 0.9 % Sodium Chloride 1,000 ML 999 ML IV ×2 (00:20→01:47)
--- NOTE | 2022-03-07 01:04 | ED_ITS ---
HPI - Abdominal Pain General Chief Complaint: Abdominal Pain Stated Complaint: Stomach Pain Time Seen by Provider: 03/06/22 23:48 Source: patient Mode of arrival: ambulatory History of Present Illness HPI narrative: 61-year-old male with past medical history Peyronie's disease, ascending aortic aneurysm, hypertension, who presents with abdominal pain that he describes as ?everywhere? since this morning with multiple episodes of nausea and vomiting as well as diarrhea and chills. He otherwise denies any shortness of breath/chest pain/palpitations or urinary symptoms. Related Data Home Medications Medication Instructions Recorded Confirmed lisinopril 30 mg tablet 30 mg PO DAILY 06/28/21 02/21/22 omeprazole 20 mg capsule,delayed 20 mg PO DAILY PRN cap 10/23/21 02/21/22 release Previous Rx's Medication Instructions Recorded escitalopram oxalate 10 mg tablet 10 mg PO DAILY #30 tab 06/24/21 pentoxifylline 400 mg 400 mg PO BID 90 Days #180 tab 11/01/21 tablet,extended release tadalafil 5 mg tablet 5 mg PO DAILY 90 Days #90 tab 11/01/21 vitamin E (dl, acetate) 450 mg 450 mg PO DAILY 90 Days #90 cap 11/01/21 (1,000 unit) capsule Allergies Allergy/AdvReac Type Severity Reaction Status Date / Time No Known Allergies Allergy Verified 02/21/22 09:43 Review of Systems Review of Systems Pertinent positives and negatives as stated in HPI 10 point review of systems is otherwise negative. [facility] Past Medical History Source: nursing notes reviewed Medical History Anxiety Chest pain Dyslipidemia Essential hypertension Family history of coronary artery disease GERD without esophagitis Hypertension Impacted cerumen, left ear Insomnia Obesity (BMI 30-39.9) Tubular adenoma of colon Vitamin D deficiency Surgical History History of colonoscopy with polypectomy No significant past surgical history Family History Family History Mother Diabetes Heart problem CVA (cerebral vascular accident) Father Heart problem Social History Social History Housing: House Alcohol intake: current Alcohol intake frequency: a few times a month Patient Tobacco Use Status: Former Tobacco user Advance Directives: No service: No Current occupational status: retired Physical Exam ED Vital Signs: Vital Signs - 24 hr 03/06/22 21:16 03/06/22 23:33 03/06/22 23:51 Temperature 97.8 F Pulse Rate 76 74 Respiratory Rate 18 24 H Blood Pressure 130/80 88/58 L 114/72 Pulse Oximetry 95 93 03/07/22 01:04 Temperature 98.0 F Pulse Rate 81 Respiratory Rate 24 H Blood Pressure 128/79 Pulse Oximetry 98 BMI result Body Mass Index 35.9 VITAL SIGNS: Reviewed. GENERAL: Well developed, well nourished, in no acute distress. HEAD: Normocephalic/atraumatic EYES: PERRLA, EOMI EARS: Ext canals without abnormality OROPHARYNX: no oral lesions noted, posterior pharynx clear and non-erythematous without noted tonsillar enlargement/erythema/exudates NECK: Supple, no adenopathy LUNGS: Normal breath sounds. No adventitious sounds or accessory muscle use. SpO2<95> CARDIOVASCULAR: Regular rate and rhythm without noted murmurs ABDOMEN: Soft, diffusely tender, non-distended with hypoactive bowel sounds. MUSCULOSKELETAL: No tenderness, deformities, or effusions noted on gross inspection. EXTREMITIES: No cyanosis, clubbing or edema. SKIN: Inspection of the skin reveals no rashes NEUROLOGIC: Alert and oriented x 4. Strength and sensation to light touch were grossly intact x 4. Course Course Course Narrative: 0110: 61-year-old male with history and clinical presentation concerning for possible perforation, diverticulitis, SBO and on review of all investigations is noted to have a leukocytosis and CT findings consistent with early appendicitis. Patient received pain medication, antibiotics, IV fluids. This case was discussed with Dr. Lindsey who accepts admission. MDM - Abdominal Pain Lab Data Result diagrams: 03/06/22 21:18 03/06/22 21:18 Labs: Lab Results 03/06/22 03/06/22 03/06/22 Range/Units 21:18 21:18 21:18 WBC 12.5 H (4.8-10.8) X10*3/uL RBC 4.77 (4.60-5.80) X10*6/uL Hgb 14.7 (14.0-18.0) g/dl Hct 44.2 (42.0-52.0) % MCV 92.7 (80.0-98.0) fL MCH 30.8 (27.0-33.0) pg MCHC 33.3 (31.0-36.0) g/dl RDW 13.6 (11.0-16.0) % Plt Count 228 (160-400) X10*3/uL MPV 9.2 L (9.4-12.4) fL Immature Gran % (Auto) 0.3 (0.0-0.4) % Neut % (Auto) 87.3 H (45-73) % Lymph % (Auto) 7.6 L (20-40) % [place] % (Auto) 4.4 (2-11) % Eos % (Auto) 0.2 (0-4) % Baso % (Auto) 0.2 (0-2) % Lymph # (Auto) 1.0 L (1.2-4.9) X10*3/uL [place] # (Auto) 0.6 (0.1-1.2) X10*3/uL Eos # (Auto) 0.0 (0.0-0.4) X10*3/uL Baso # (Auto) 0.0 (0.0-0.2) X10*3/uL Abs Immat Gran (auto) 0.04 H (0.00-0.03) X10*3/uL Absolute Neuts (auto) 11.0 H (2.0-8.3) x10*3/uL Absolute Nucleated RBC 0.000 (0.0-0.012) X10*3/uL Nucleated RBC % (auto) 0.0 (0.0-0.2) /100WBC Sodium 135 (135-145) mmol/L Potassium 4.5 (3.3-5.1) mmol/L Chloride 101 (96-108) mmol/L Carbon Dioxide 25 (22-29) mmol/L Anion Gap 14 (12-20) BUN 13 (9-16) mg/dL Creatinine 0.97 (0.5-1.4) mg/dL Estim Creat Clear Calc 98.2 Estimated GFR > 60 Random Glucose 126 H (60-115) mg/dL Calcium 9.9 (8.4-10.2) mg/dL Total Bilirubin 0.6 (0.0-1.0) mg/dL AST 16 (5-37) U/L ALT 23 (0-40) U/L Alkaline Phosphatase 74 (39-117) U/L Total Protein 7.6 (6.5-8.0) g/dL Albumin 4.3 (3.5-5.0) g/dL COVID-19 (KATELYN) (Negative) COVID-19 Clin Com Influenza Type A (ZANDER) Negative (Negative) Influenza Type B (ZANDER) Negative (Negative) Influenza A & B Note See Note 03/06/22 Range/Units 21:18 WBC (4.8-10.8) X10*3/uL RBC (4.60-5.80) X10*6/uL Hgb (14.0-18.0) g/dl Hct (42.0-52.0) % MCV (80.0-98.0) fL MCH (27.0-33.0) pg MCHC (31.0-36.0) g/dl RDW (11.0-16.0) % Plt Count (160-400) X10*3/uL MPV (9.4-12.4) fL Immature Gran % (Auto) (0.0-0.4) % Neut % (Auto) (45-73) % Lymph % (Auto) (20-40) % [place] % (Auto) (2-11) % Eos % (Auto) (0-4) % Baso % (Auto) (0-2) % Lymph # (Auto) (1.2-4.9) X10*3/uL [place] # (Auto) (0.1-1.2) X10*3/uL Eos # (Auto) (0.0-0.4) X10*3/uL Baso # (Auto) (0.0-0.2) X10*3/uL Abs Immat Gran (auto) (0.00-0.03) X10*3/uL Absolute Neuts (auto) (2.0-8.3) x10*3/uL Absolute Nucleated RBC (0.0-0.012) X10*3/uL Nucleated RBC % (auto) (0.0-0.2) /100WBC Sodium (135-145) mmol/L Potassium (3.3-5.1) mmol/L Chloride (96-108) mmol/L Carbon Dioxide (22-29) mmol/L Anion Gap (12-20) BUN (9-16) mg/dL Creatinine (0.5-1.4) mg/dL Estim Creat Clear Calc Estimated GFR Random Glucose (60-115) mg/dL Calcium (8.4-10.2) mg/dL Total Bilirubin (0.0-1.0) mg/dL AST (5-37) U/L ALT (0-40) U/L Alkaline Phosphatase (39-117) U/L Total Protein (6.5-8.0) g/dL Albumin (3.5-5.0) g/dL COVID-19 (KATELYN) Negative (Negative) COVID-19 Clin Com See Note Influenza Type A (ZANDER) (Negative) Influenza Type B (ZANDER) (Negative) Influenza A & B Note ECG Data Attestation: I personally reviewed and interpreted this ECG as follows: Prior ECG tracings: available for review Interpretation: Normal sinus rhythm, HR-73, no STEMI, TN/QRS/QTC are within normal limits. Discharge Plan Discharge Clinical Impression: Acute appendicitis, Ascending aortic aneurysm, Peyronie's disease, Essential hypertension Patient Disposition: Admitted As Inpatient Prescriptions: No Action escitalopram oxalate 10 mg tablet 10 mg PO DAILY Qty: 30 0RF omeprazole 20 mg capsule,delayed release(DR/EC) 20 mg PO DAILY PRN (Reason: acid reflux) 0RF lisinopril 30 mg tablet 30 mg PO DAILY 0RF pentoxifylline 400 mg tablet extended release 400 mg PO BID 90 Days Qty: 180 1RF Rx Instructions: administer with meals tadalafil 5 mg tablet 5 mg PO DAILY 90 Days Qty: 90 1RF vitamin E (dl, acetate) 450 mg (1,000 unit) capsule 450 mg PO DAILY 90 Days Qty: 90 1RF
[2022-03-07 01:41] LABS: Lactic Acid 1.6 mmol/L (0.5-2.0)
[2022-03-07] MEDS: Piperacillin Sodium/Tazobactam 3.375 GM in 0.9 % Sodium Chloride 50 ML IV (01:46)
[2022-03-07] MEDS: fentaNYL citrate/PF 100 MCG/2 ML VIAL 25 MCG IVPUSH (01:46)
[2022-03-07] MEDS: Dextrose 5 % and Lactated Ring 1,000 ML 125 ML IVCONT ×2 (03:48→19:28)
[2022-03-07 04:54] LABS: MANUAL DIFF FLAG NO
[2022-03-07 04:55] LABS: Basophils Percent Auto 0.2 % (0-2); Eosinophils Percent Auto 0.1 % (0-4); Hematocrit 39.3 % (42.0-52.0); Hemoglobin 12.8 g/dl (14.0-18.0); Imm Gran Abs Auto 0.06 X10*3/uL (0.00-0.03); Imm Gran Pct Auto 0.4 % (0.0-0.4); Lymphocytes Absolute Auto 1.3 X10*3/uL (1.2-4.9); Mean Corpuscular HGB Conc 32.6 g/dl (31.0-36.0); Mean Corpuscular Hemoglobin 30.6 pg (27.0-33.0); Mean Platelet Volume 9.1 fL (9.4-12.4); Monocytes Absolute Auto 0.9 X10*3/uL (0.1-1.2); Monocytes Percent Auto 6.4 % (2-11); Neutrophils Absolute Auto 11.1 x10*3/uL (2.0-8.3); Neutrophils Percent Auto 82.9 % (45-73); Platelet Count 196 X10*3/uL (160-400); Red Blood Count 4.18 X10*6/uL (4.60-5.80); Red Cell Distribution Width 13.5 % (11.0-16.0); White Blood Count 13.3 X10*3/uL (4.8-10.8)
[2022-03-07 05:12] LABS: Anion Gap 11 (12-20); Blood Urea Nitrogen 13 mg/dL (9-16); Carbon Dioxide 26 mmol/L (22-29); Chloride 104 mmol/L (96-108); Creatinine Clr Calc Pharmacy 99.3; Estimated Glomerular Filt Rate > 60; Glucose Random 141 mg/dL (60-115); Potassium 4.9 mmol/L (3.3-5.1); Sodium 136 mmol/L (135-145)
[2022-03-07 05:24] LABS: Calcium 8.6 mg/dL (8.4-10.2)
[2022-03-07] MEDS: HYDROmorphone HCl 1 MG/ML SYRINGE 0.5 MG IVPUSH (06:48)
--- NOTE | 2022-03-07 08:10 | P.HPGS_ITS ---
History of Present Illness History of Present Illness Date of Service: 03/07/22 Chief complaint: Acute Appendicitis Narrative: Tank Ledezma is a 61 year old male Presenting with complaints of abdominal pain in the right lower quadrant pain. The pain began in the periumbilical region and then became more localized to the right lower quadrant. He denies a previous history of similar pain. Pain was associated with fever, chills, nausea without vomiting, and anorexia. He presented to the ED and was found to be tender in the RLQ. WBC was elevated and CT was positive for a dilated and inflamed appendix, consistent with acute appendicitis. Review of Systems Constitutional: Constitutional: Reports chills, Reports fever(s), Denies headache(s) and Reports poor appetite ENT: Denies dizziness and Denies headache(s) Cardiovascular: Cardiovascular: Denies chest pain, Denies rapid heart rate, D enies palpitations and Denies slow heart rate Respiratory: Respiratory: Denies chest congestion, Denies cough, Denies pain on inspiration and Denies wheezing Gastrointestinal: Gastrointestinal: Reports abdominal pain, Reports bloating, Denies change in stool character, Denies constipation, Reports diarrhea, Reports nausea, Denies vomiting and Denies hematemesis Musculoskeletal: Musculoskeletal: Denies back pain, Denies arthralgias, Denies joint swelling and Denies numbness Integumentary/Breasts: Skin/Breast: Denies change in pigmentation, Denies erythema and Denies rash Neurologic: Denies dizziness, Denies headache(s) and Denies numbness Psychiatric: Psychiatric: Denies anxiety and Denies depression Endocrine: Endocrine: Denies palpitations Hematologic/Lymphatic: Hematologic/Lymphatic: Denies easy bleeding, Denies easy bruising and Denies lymphadenopathy Allergic/Immunologic: Allergic/Immunologic: Denies wheezing PMFSH Past Medical History Medical History Anxiety Chest pain Dyslipidemia Essential hypertension Family history of coronary artery disease GERD without esophagitis Hypertension Impacted cerumen, left ear Insomnia Obesity (BMI 30-39.9) Tubular adenoma of colon Vitamin D deficiency Family History Family History Mother Diabetes Heart problem CVA (cerebral vascular accident) Father Heart problem Surgical History Surgical History History of colonoscopy with polypectomy No significant past surgical history Social History Social History Housing: House Alcohol intake: current Alcohol intake frequency: a few times a month Patient Tobacco Use Status: Former Tobacco user Advance Directives: Yes Advance Directives on File: Yes Advance Directives Date on File: 08/22/20 service: No Current occupational status: retired Meds Allergies Allergy/AdvReac Type Severity Reaction Status Date / Time No Known Allergies Allergy Verified 02/21/22 09:43 Active Medications: Current Medications Acetaminophen (Acetaminophen 325 Mg Tablet) 650 mg PO QID PRN PRN Reason: headache, temp > 101 Hydromorphone HCl (Hydromorphone Hcl 1 Mg/Ml Syringe) 0.5 mg IVPUSH Q3H PRN; Protocol PRN Reason: Pain, Severe (Pain Scale 7-10) Last Admin: 03/07/22 06:48 Dose: 0.5 mg Documented by: Dextrose/Lactated Ringer's (D5lr) 1,000 mls @ 125 mls/hr IVCONT .Q8H BENITO Last Admin: 03/07/22 03:48 Dose: 125 mls/hr Documented by: Piperacillin Sod/Tazobactam (Sod 3.375 gm/ Sodium Chloride) 50 mls @ 100 mls/hr IV Q6H BENITO Ondansetron HCl (Ondansetron Hcl 4 Mg/2 Ml Vial) 4 mg IVPUSH QID PRN PRN Reason: Nausea Oxycodone HCl (Oxycodone Hcl Immed Release 5 Mg Tablet) 5 mg PO Q6H PRN PRN Reason: Pain, Moderate (Pain Scale 4-6 Pharmacy Consult (Consult Rx Perform Med Rec) 1 each MISCELLANE ONCE PRN PRN Reason: Consult order Sodium Chloride (0.9 % Sodium Chloride Flush 3 Ml Syringe) 3 ml IVFLUSH QSHIFT BENITO Zolpidem Tartrate (Zolpidem Tartrate 5 Mg Tablet) 5 mg PO BEDTIME PRN PRN Reason: Insomnia Home Medications Medication Instructions Recorded Confirmed Last Taken Type lisinopril 30 mg tablet 30 mg PO DAILY 06/28/21 02/21/22 Unknown History omeprazole 20 mg capsule,delayed 20 mg PO DAILY PRN cap 10/23/21 02/21/22 Unknown History release Physical Exam Vital Signs: Vital Signs: Last Vital Signs Temp 98.1 F 03/07/22 02:00 Pulse 83 03/07/22 07:13 Resp 18 03/07/22 07:13 BP 99/69 03/07/22 07:13 Pulse Ox 98 03/07/22 07:13 BMI result Body Mass Index 35.9 Const: General: cooperative, comfortable and well developed Nutritional Appearance: well nourished Orientation/consciousness: patient oriented x3 Eyes: Sclerae: sclerae normal EOM: EOMs intact bilaterally Neck: Neck: Yes normal visual inspection Resp: Effort & Inspection: normal respiratory effort, no cough, no respiratory distress and no stridor Cardio: Jugular venous distension: no JVD GI: Inspection: Yes normal to inspection Palpation (GI): Soft to palpation, Tenderness to palpation present (GI) in the RLQ and at McBurney's point, no guarding, not rigid and No hepatosplenomegaly present Percussion: Yes normal to percussion Auscultation: normal bowel sounds Rectal Exam - Male: Yes deferred Skin: General skin exam: dry skin Rashes: no rashes Neuro: General: patient oriented x3 and no focal motor deficits Extrem: General: Yes full ROM and Yes no clubbing, cyanosis or edema Psych: Appearance: grossly normal Results Results Labs: Short CBC 03/06/22 03/07/22 Range/Units 21:18 04:41 WBC 12.5 H 13.3 H (4.8-10.8) X10*3/uL Hgb 14.7 12.8 L (14.0-18.0) g/dl Hct 44.2 39.3 L (42.0-52.0) % Plt Count 228 196 (160-400) X10*3/uL BMP 03/06/22 03/07/22 21:18 04:41 Sodium 135 136 Potassium 4.5 4.9 Chloride 101 104 Carbon Dioxide 25 26 BUN 13 13 Creatinine 0.97 0.96 Calcium 9.9 8.6 D Liver Function 03/06/22 Range/Units 21:18 Total Bilirubin 0.6 (0.0-1.0) mg/dL AST 16 (5-37) U/L ALT 23 (0-40) U/L Alkaline Phosphatase 74 (39-117) U/L Albumin 4.3 (3.5-5.0) g/dL Assessment and Plan (1) Acute appendicitis: Status: Acute Plan 61 year old male patient with pain in the right lower quadrant found on workup to have evidence of acute appendicitis. I reviewed the treatment options and after a discussion of the procedure, alternatives and risks, he consents to a laparoscopic or possible open appendectomy. Quality Stroke Does the patient have a stroke diagnosis?: No VTE Prior VTE?: No VTE Risk Level:: Surgical - high VTE Device Contraindication: N/A - Device Ordered VTE Drug Contraindication: Treatment Not Indicated Procedures Date of Service Date of Service: 03/07/22
--- NOTE | 2022-03-07 08:34 | PHA.MEDREC ---
Pharmacy Consult ? Medication Reconciliation Pharmacy has completed the medication reconciliation. Patient reports he only takes two medications blood pressure and anxiety medication. Berenice Saravia, PharmD
--- NOTE | 2022-03-07 08:37 | PM.EVENT ---
Event Note Date of Service: 03/07/22 Event Note: Full consult to follow. Low cardiac risk for appendectomy. Due to ascending aortic aneurysm avoid any hypertension.
--- NOTE | 2022-03-07 09:16 | HE.PHANOTE ---
Spoke with Dr. Hill. Since Zosyn and Cefotetan were due has the same time, will hold off Zosyn until after procedure. Berenice Saravia, GrisD
--- NOTE | 2022-03-07 09:27 | MHC.CM.PN ---
Attempted to meet with patient in regards to discharge planning. Patient currently at same day surgery. Will attempt to meet again. Continue to monitor for d/c needs.
--- NOTE | 2022-03-07 09:39 | P.CONAN_ITS ---
HPI - Anesthesia Eval Consult details Narrative: for appendectomy PMFSH Active Problems Active Problems: All Active Problems (Updated 03/07/22 @ 09:36 by Torri Allison, RN) Precordial chest pain (Acute) SOB (shortness of breath) (Acute) Ascending aortic aneurysm (Acute) Peyronie's disease (Acute) Hepatic cyst (Acute) Acute appendicitis (Acute) Anxiety (Acute) Obesity (BMI 30-39.9) (Acute) Insomnia (Acute) GERD without esophagitis (Acute) Impacted cerumen, left ear (Acute) Vitamin D deficiency (Acute) Dyslipidemia (Acute) Essential hypertension (Acute) Hypertension (Acute) Family history of coronary artery disease (Acute) Chest pain (Acute) Past Medical History Medical History (Updated 03/07/22 @ 09:36 by Torri Allison, CARLOS) Anxiety Ascending aortic aneurysm Chest pain Dyslipidemia Essential hypertension Family history of coronary artery disease GERD without esophagitis Hypertension Impacted cerumen, left ear Insomnia Obesity (BMI 30-39.9) Tubular adenoma of colon Vitamin D deficiency Family History Family History Mother Diabetes Heart problem CVA (cerebral vascular accident) Father Heart problem Family history of problems with anesthesia: No Surgical History Surgical History History of colonoscopy with polypectomy No significant past surgical history History of Problems with Anesthesia: No Social History Social History Housing: House Alcohol intake: current Alcohol intake frequency: a few times a month Patient Tobacco Use Status: Former Tobacco user Advance Directives Date on File: 08/22/20 service: No 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 Allergies Allergy/AdvReac Type Severity Reaction Status Date / Time No Known Allergies Allergy Verified 02/21/22 09:43 Active Medications: Current Medications Acetaminophen (Acetaminophen 325 Mg Tablet) 650 mg PO QID PRN PRN Reason: headache, temp > 101 Hydromorphone HCl (Hydromorphone Hcl 1 Mg/Ml Syringe) 0.5 mg IVPUSH Q3H PRN; Protocol PRN Reason: Pain, Severe (Pain Scale 7-10) Last Admin: 03/07/22 06:48 Dose: 0.5 mg Documented by: Dextrose/Lactated Ringer's (D5lr) 1,000 mls @ 125 mls/hr IVCONT .Q8H BENITO Last Admin: 03/07/22 03:48 Dose: 125 mls/hr Documented by: Piperacillin Sod/Tazobactam (Sod 3.375 gm/ Sodium Chloride) 50 mls @ 100 mls/hr IV Q6H BENITO Ondansetron HCl (Ondansetron Hcl 4 Mg/2 Ml Vial) 4 mg IVPUSH QID PRN PRN Reason: Nausea Oxycodone HCl (Oxycodone Hcl Immed Release 5 Mg Tablet) 5 mg PO Q6H PRN PRN Reason: Pain, Moderate (Pain Scale 4-6 Pharmacy Consult (Consult Rx Perform Med Rec) 1 each MISCELLANE ONCE PRN PRN Reason: Consult order Sodium Chloride (0.9 % Sodium Chloride Flush 3 Ml Syringe) 3 ml IVFLUSH QSHIFT BENITO Zolpidem Tartrate (Zolpidem Tartrate 5 Mg Tablet) 5 mg PO BEDTIME PRN PRN Reason: Insomnia Home Medications Medication Instructions Recorded Confirmed Last Taken Type lisinopril 30 mg tablet 30 mg PO DAILY 06/28/21 03/07/22 Unknown History Exam Exam Date and Time: March 07, 2022 0939 Height,Weight and Vital Signs: Height 5 ft 10 in Weight 113.398 kg Last Vital Signs Temp 98.7 F 03/07/22 09:31 Pulse 79 03/07/22 09:31 Resp 18 03/07/22 09:31 BP 128/72 03/07/22 09:31 Pulse Ox 97 03/07/22 09:31 Pertinent Lab Results Pertinent Lab Results: Laboratory Tests 03/06/22 03/06/22 03/06/22 21:18 21:18 21:18 WBC 12.5 H RBC 4.77 Hgb 14.7 Hct 44.2 MCV 92.7 MCH 30.8 MCHC 33.3 RDW 13.6 Plt Count 228 MPV 9.2 L Immature Gran % (Auto) 0.3 Neut % (Auto) 87.3 H Lymph % (Auto) 7.6 L [place] % (Auto) 4.4 Eos % (Auto) 0.2 Baso % (Auto) 0.2 Lymph # (Auto) 1.0 L [place] # (Auto) 0.6 Eos # (Auto) 0.0 Baso # (Auto) 0.0 Abs Immat Gran (auto) 0.04 H Absolute Neuts (auto) 11.0 H Absolute Nucleated RBC 0.000 Nucleated RBC % (auto) 0.0 Sodium 135 Potassium 4.5 Chloride 101 Carbon Dioxide 25 Anion Gap 14 BUN 13 Creatinine 0.97 Estim Creat Clear Calc 98.2 Estimated GFR > 60 Random Glucose 126 H Lactic Acid Calcium 9.9 Total Bilirubin 0.6 AST 16 ALT 23 Alkaline Phosphatase 74 Total Protein 7.6 Albumin 4.3 COVID-19 (KATELYN) COVID-19 Clin Com Influenza Type A (ZANDER) Negative Influenza Type B (ZANDER) Negative Influenza A & B Note See Note 03/06/22 03/07/22 03/07/22 21:18 01:17 04:41 WBC 13.3 H RBC 4.18 L Hgb 12.8 L Hct 39.3 L MCV 94.0 MCH 30.6 MCHC 32.6 RDW 13.5 Plt Count 196 MPV 9.1 L Immature Gran % (Auto) 0.4 Neut % (Auto) 82.9 H Lymph % (Auto) 10.0 L [place] % (Auto) 6.4 Eos % (Auto) 0.1 Baso % (Auto) 0.2 Lymph # (Auto) 1.3 [place] # (Auto) 0.9 Eos # (Auto) 0.0 Baso # (Auto) 0.0 Abs Immat Gran (auto) 0.06 H Absolute Neuts (auto) 11.1 H Absolute Nucleated RBC 0.000 Nucleated RBC % (auto) 0.0 Sodium Potassium Chloride Carbon Dioxide Anion Gap BUN Creatinine Estim Creat Clear Calc Estimated GFR Random Glucose Lactic Acid 1.6 Calcium Total Bilirubin AST ALT Alkaline Phosphatase Total Protein Albumin COVID-19 (KATELYN) Negative COVID-19 Clin Com See Note Influenza Type A (ZANDER) Influenza Type B (ZANDER) Influenza A & B Note 03/07/22 04:41 WBC RBC Hgb Hct MCV MCH MCHC RDW Plt Count MPV Immature Gran % (Auto) Neut % (Auto) Lymph % (Auto) [place] % (Auto) Eos % (Auto) Baso % (Auto) Lymph # (Auto) [place] # (Auto) Eos # (Auto) Baso # (Auto) Abs Immat Gran (auto) Absolute Neuts (auto) Absolute Nucleated RBC Nucleated RBC % (auto) Sodium 136 Potassium 4.9 Chloride 104 Carbon Dioxide 26 Anion Gap 11 L BUN 13 Creatinine 0.96 Estim Creat Clear Calc 99.3 Estimated GFR > 60 Random Glucose 141 H Lactic Acid Calcium 8.6 D Total Bilirubin AST ALT Alkaline Phosphatase Total Protein Albumin COVID-19 (KATELYN) COVID-19 Clin Com Influenza Type A (ZANDER) Influenza Type B (ZANDER) Influenza A & B Note Airway Mallampati Class: II TM Dist: >3cm Neck ROM: Full Loose/Missing/Broken Teeth: No Heart: ok Lungs: ok Assessment and Plan Final Anesthetic Review Family History of Problems with Anesthesia: No History of Problems with Anesthesia: No NPO: Yes ASA Class: III and Emergency Final Preanesthetic Review: No Changes in Pt Med Stat, Meds/Allgs Chart Reviewed, Consent Obtained/Reviewed and Anes Risks/Benef Reviewed Patient Risk: High Procedure Risk: Intermediate Anesthetic Plan Anesthetic Plan: GA and Agree w/ Assess. and Plan Disposition: Standard PACU
--- NOTE | 2022-03-07 10:09 | P.CONCA_ITS ---
History of Present Illness History of Present Illness Date of Service: 03/07/22 Chief complaint: Acute Appendicitis Narrative: This is a cardiology consultation regarding preoperative risk stratification before appendix surgery. Patient has a history of ascending aortic aneurysm and is followed up in the office. Current admission is mainly for abdominal pain. From the cardiac standpoint, he does not have any symptoms like chest pain or shortness of breath or in fact anything cardiac related at all. The abdominal pain started yesterday according to patient. Per surgery, he is diagnosed with acute appendicitis and needs to go for surgery. Review of Systems Review of Systems: Yes all other systems are reviewed and are negative Constitutional: Constitutional: Reports as per HPI Eyes: Eyes: Reports as per HPI ENT: Reports as per HPI Cardiovascular: Cardiovascular: Reports as per HPI, Denies acrocyanosis, Denies cool extremities, Denies chest pain, Denies leg edema, Denies lightheadedness, Denies palpitations and Denies dyspnea Respiratory: Respiratory: Reports as per HPI, Reports no additional respiratory complaints and Denies dyspnea Gastrointestinal: Gastrointestinal: Reports as per HPI, Reports no additional gastrointestinal complaints and Reports abdominal pain Genitourinary: Genitourinary: Reports no additional male genitourinary complaints and Reports as per HPI Musculoskeletal: Musculoskeletal: Reports no additional musculoskeletal complaints and Reports as per HPI Integumentary/Breasts: Skin/Breast: Reports system reviewed and no additional complaints, except as docu Neurologic: Reports system reviewed and no additional complaints, except as documented and Reports as per HPI Psychiatric: Psychiatric: Reports no additional psychiatric complaints and Reports as per HPI Endocrine: Endocrine: Reports no additional endocrine complaints, Reports as per HPI and Denies palpitations Hematologic/Lymphatic: Hematologic/Lymphatic: Reports no additional hematologic/lymphatic complaints and Reports as per HPI Allergic/Immunologic: Allergic/Immunologic: Reports no additional allergic/immunologic complaints and Reports as per HPI PMF Past Medical History Medical History (Updated 03/07/22 @ 10:11 by Sean Joiner MD) Anxiety Ascending aortic aneurysm Chest pain Dyslipidemia Essential hypertension Family history of coronary artery disease GERD without esophagitis Hypertension Impacted cerumen, left ear Insomnia Obesity (BMI 30-39.9) Tubular adenoma of colon Vitamin D deficiency Family History Family History Mother Diabetes Heart problem CVA (cerebral vascular accident) Father Heart problem Surgical History Surgical History History of colonoscopy with polypectomy No significant past surgical history Social History Social History Housing: House Alcohol intake: current Alcohol intake frequency: a few times a month Patient Tobacco Use Status: Former Tobacco user Advance Directives Date on File: 08/22/20 service: No Current occupational status: retired Meds Allergies Allergy/AdvReac Type Severity Reaction Status Date / Time No Known Allergies Allergy Verified 02/21/22 09:43 Active Medications: Current Medications Acetaminophen (Acetaminophen 325 Mg Tablet) 650 mg PO QID PRN PRN Reason: headache, temp > 101 Fentanyl (Fentanyl Citrate/Pf 100 Mcg/2 Ml Vial) 50 mcg IVPUSH Q5M PRN; Protocol PRN Reason: Pain, Severe (Pain Scale 7-10) Hydromorphone HCl (Hydromorphone Hcl 1 Mg/Ml Syringe) 0.5 mg IVPUSH Q3H PRN; Protocol PRN Reason: Pain, Severe (Pain Scale 7-10) Last Admin: 03/07/22 06:48 Dose: 0.5 mg Documented by: Hydromorphone HCl (Hydromorphone Hcl 0.5 Mg/0.5 Ml Syringe) 0.5 mg IVPUSH Q5M PRN; Protocol PRN Reason: Pain, Severe (Pain Scale 7-10) Dextrose/Lactated Ringer's (D5lr) 1,000 mls @ 125 mls/hr IVCONT .Q8H BENITO Last Admin: 03/07/22 03:48 Dose: 125 mls/hr Documented by: Piperacillin Sod/Tazobactam (Sod 3.375 gm/ Sodium Chloride) 50 mls @ 100 mls/hr IV Q6H BENITO Ondansetron HCl (Ondansetron Hcl 4 Mg/2 Ml Vial) 4 mg IVPUSH QID PRN PRN Reason: Nausea Ondansetron HCl (Ondansetron Hcl 4 Mg/2 Ml Vial) 4 mg IVPUSH ONCE PRN PRN Reason: Nausea and Vomiting Oxycodone HCl (Oxycodone Hcl Immed Release 5 Mg Tablet) 5 mg PO Q6H PRN PRN Reason: Pain, Moderate (Pain Scale 4-6 Pharmacy Consult (Consult Rx Perform Med Rec) 1 each MISCELLANE ONCE PRN PRN Reason: Consult order Sodium Chloride (0.9 % Sodium Chloride Flush 3 Ml Syringe) 3 ml IVFLUSH QSHIFT [facility] Zolpidem Tartrate (Zolpidem Tartrate 5 Mg Tablet) 5 mg PO BEDTIME PRN PRN Reason: Insomnia Home Medications Medication Instructions Recorded Confirmed Last Taken Type lisinopril 30 mg tablet 30 mg PO DAILY 06/28/21 03/07/22 Unknown History Physical Exam Vital Signs: Vital Signs: Last Vital Signs Temp 98.7 F 03/07/22 09:31 Pulse 79 03/07/22 09:31 Resp 18 03/07/22 09:31 BP 128/72 03/07/22 09:31 Pulse Ox 97 03/07/22 09:31 BMI result Body Mass Index 35.9 Const: General: ill appearing Orientation/consciousness: patient oriented x3 HEENT: Other: Unremarkable Head: Yes normal to inspection Neck: Neck: Yes normal visual inspection Chest: Chest palpation & inspection: normal inspection of the chest Resp: Auscultation: clear to auscultation bilaterally Cardio: Palpation: normal PMI Heart sounds: S1 normal heart sound present, S2 normal heart sound present, no gallops, no murmurs and no rubs GI: Palpation (GI): Tenderness to palpation present (GI) Back/Spine/Pelvis: Other: unremarkable Skin: General skin exam: no rashes or lesions noted Neuro: General: patient oriented x3 Extrem: General: Yes normal to inspection Psych: Mental Status: mental status grossly normal Objective Labs and Meds Result diagrams: 03/07/22 04:41 03/07/22 04:41 Lab results: Laboratory Results - last 24 hr 03/06/22 03/06/22 03/06/22 21:18 21:18 21:18 WBC 12.5 H RBC 4.77 Hgb 14.7 Hct 44.2 MCV 92.7 MCH 30.8 MCHC 33.3 RDW 13.6 Plt Count 228 MPV 9.2 L Immature Gran % (Auto) 0.3 Neut % (Auto) 87.3 H Lymph % (Auto) 7.6 L [place] % (Auto) 4.4 Eos % (Auto) 0.2 Baso % (Auto) 0.2 Lymph # (Auto) 1.0 L [place] # (Auto) 0.6 Eos # (Auto) 0.0 Baso # (Auto) 0.0 Abs Immat Gran (auto) 0.04 H Absolute Neuts (auto) 11.0 H Absolute Nucleated RBC 0.000 Nucleated RBC % (auto) 0.0 Sodium 135 Potassium 4.5 Chloride 101 Carbon Dioxide 25 Anion Gap 14 BUN 13 Creatinine 0.97 Estim Creat Clear Calc 98.2 Estimated GFR > 60 Random Glucose 126 H Lactic Acid Calcium 9.9 Total Bilirubin 0.6 AST 16 ALT 23 Alkaline Phosphatase 74 Total Protein 7.6 Albumin 4.3 COVID-19 (KATELYN) COVID-19 Clin Com Influenza Type A (ZANDER) Negative Influenza Type B (ZANDER) Negative Influenza A & B Note See Note 03/06/22 03/07/22 03/07/22 21:18 01:17 04:41 WBC 13.3 H RBC 4.18 L Hgb 12.8 L Hct 39.3 L MCV 94.0 MCH 30.6 MCHC 32.6 RDW 13.5 Plt Count 196 MPV 9.1 L Immature Gran % (Auto) 0.4 Neut % (Auto) 82.9 H Lymph % (Auto) 10.0 L [place] % (Auto) 6.4 Eos % (Auto) 0.1 Baso % (Auto) 0.2 Lymph # (Auto) 1.3 [place] # (Auto) 0.9 Eos # (Auto) 0.0 Baso # (Auto) 0.0 Abs Immat Gran (auto) 0.06 H Absolute Neuts (auto) 11.1 H Absolute Nucleated RBC 0.000 Nucleated RBC % (auto) 0.0 Sodium Potassium Chloride Carbon Dioxide Anion Gap BUN Creatinine Estim Creat Clear Calc Estimated GFR Random Glucose Lactic Acid 1.6 Calcium Total Bilirubin AST ALT Alkaline Phosphatase Total Protein Albumin COVID-19 (KATELYN) Negative COVID-19 Clin Com See Note Influenza Type A (ZANDER) Influenza Type B (ZANDER) Influenza A & B Note 03/07/22 04:41 WBC RBC Hgb Hct MCV MCH MCHC RDW Plt Count MPV Immature Gran % (Auto) Neut % (Auto) Lymph % (Auto) [place] % (Auto) Eos % (Auto) Baso % (Auto) Lymph # (Auto) [place] # (Auto) Eos # (Auto) Baso # (Auto) Abs Immat Gran (auto) Absolute Neuts (auto) Absolute Nucleated RBC Nucleated RBC % (auto) Sodium 136 Potassium 4.9 Chloride 104 Carbon Dioxide 26 Anion Gap 11 L BUN 13 Creatinine 0.96 Estim Creat Clear Calc 99.3 Estimated GFR > 60 Random Glucose 141 H Lactic Acid Calcium 8.6 D Total Bilirubin AST ALT Alkaline Phosphatase Total Protein Albumin COVID-19 (KATELYN) COVID-19 Clin Com Influenza Type A (ZANDER) Influenza Type B (ZANDER) Influenza A & B Note ECG Interpretation: EKG with sinus rhythm at 73/Min; no significant ST-T changes and otherwise unremarkable. Imaging Radiologist's impression: Impressions Abdomen/Pelvis CT 03/07/22 00:15 IMPRESSION: Findings are suggestive of very early uncomplicated appendicitis with a dilated appendix with high density material within the lumen and some mild periappendiceal inflammatory changes. Other incidental findings as described above. Fleischner guidelines were followed. Chest X-Ray 03/07/22 00:19 IMPRESSION: Unremarkable examination. Assessment and Plan (1) Preoperative cardiovascular examination: Status: Acute (2) Ascending aortic aneurysm: Status: Acute (3) Essential hypertension: Status: Acute Plan In the most recent echocardiogram, ascending aortic size was 4.4 cm. This is stable compared to previous imaging studies. In the past, myocardial perfusion study was also unremarkable. He has hypertension blood pressure seems to be fairly stable. He does not have any cardiac symptoms at this time. He needs appendix surgery urgently. Overall, may proceed. Cardiac risk is considered low. It will be important to control his blood pressure in the perioperative. Aggressively due to history of ascending aortic aneurysm. Otherwise, can proceed. Procedures Date of Service Date of Service: 03/07/22
--- NOTE | 2022-03-07 10:58 | P.OP_ITS ---
Operative Note Operative Note Date of Service: 03/07/22 Narrative: Preoperative diagnosis: Acute appendicitis Postoperative diagnosis: Same Procedure: Laparoscopic appendectomy Surgeon: Asim Lindsey MD Habilitation Specialist:none Anesthesia: General endotracheal Indications for procedure:61 year old male with pain in the RLQ found to have appendicitis by CT Operative findings:Acute appendicitis in a retrocecal location Specimen:appendix Estimated blood loss:1 ml Complications: none Procedure details: Patient was brought to the OR and placed in a supine position. After administering general anesthesia the patient's abdomen was prepped with ChloraPrep and draped in a sterile fashion. A surgical time-out was called and consent confirmed. Patient received preoperative antibiotics and Venodyne boots were in place. Local anesthesia consisting of 0.75% Sensorcaine with epinephrine was infiltrated in periumbilical region. A 5 mm incision was made below the umbilicus and carried down through subcutaneous tissue. A Veress needle was then inserted while elevating abdominal cavity with towel clips. After a positive drop test the abdomen was insufflated to a pressure of 15 mm of mercury. The Veress needle was removed and a 5 mm trocar inserted. The camera was then inserted in the abdomen explored. A 2nd 5 mm trocars placed in the lower midline. A 12 mm trocar was then placed in the left lower quadrant. The patient was then placed in a Trendelenburg position and rotated to the left. The appendix was identified in the right lower quadrant and brought up using blunt dissecting clamps. The mesentery of the appendix was then divided using the LigaSure. The appendiceal artery was cauterized and divided using the LigaSure. Dissection was continued down to the base of the cecum. An Endo-ALANNA stapler with a purple reload was then used to divide the appendix at the base with the cecum. The appendix was then placed in Endo-Catch bag and brought out through the left lower quadrant incision. The abdomen was then irrigated with saline solution and suctioned dry. Wounds were checked for hemostasis. CO2 was then evacuated from the abdominal cavity and all trocars removed. Fascia was closed in the left lower quadrant incision using a [id number] 0 Polysorb suture. Skin was closed at all incisions using a subcuticular 4-0 Polysorb suture. Steri-Strips 2 x 2 gauze and Tegaderm were then applied. The patient tolerated the procedure well. Sponge, instrument, needle counts reported as correct. The patient was transferred to PACU in stable condition.
[2022-03-08] MEDS: Dextrose 5 % and Lactated Ring 1,000 ML 125 ML IVCONT (02:24)
[2022-03-08 03:43] VITALS: BP 91/56; PULSE 67; RESP 18; TEMP 36.2; O2SAT 96
--- NOTE | 2022-03-08 07:49 | PM.DS ---
DS: Providers Provider Date of Service: 03/08/22 Date of admission: 03/07/22 01:20 Date of discharge: 03/08/22 Primary care physician: Oziel Elliott MD Admitting clinician: Asim Lindsey Consults: 03/07/22 08:33 Consult to Cardiology Stat Consulting Provider: Sean Joiner Reason for consultation: appendicitis, thoracic aneurism Discharging clinician: Asim Lindsey DS: Diagnosis Discharge Diagnosis (1) Preoperative cardiovascular examination: Status: Acute (2) Ascending aortic aneurysm: Status: Acute (3) Essential hypertension: Status: Acute DS: Summary Hospital Course Hospital Course: Tank Ledezma is a 61 year old male?presenting with complaints of abdominal pain in the right lower quadrant pain.? The pain began in the periumbilical region and then became more localized to the right lower quadrant.? He denies a previous history of similar pain.? Pain was associated with fever, chills, nausea without vomiting, and anorexia.? He presented to the ED and was found to be tender in the RLQ.? WBC was elevated and CT was positive for a dilated and inflamed appendix, consistent with acute appendicitis. Patient has a known history of a thoracic aortic aneurysm which is being observed. Cardiology consultation was obtained prior to surgery. The patient was subsequently taken to the OR for a laparoscopic appendectomy. Operative findings were consistent with a retrocecal appendix with appendicitis. He tolerated the procedure well. He was subsequently started on a regular diet and tolerated this well. On postoperative day 1 patient felt much improved with decreased abdominal pain. He was tolerating regular diet without nausea or vomiting. He was able to ambulate independently. Examination revealed his incisions to be clean, dry, and intact. Patient is to be discharged to home. He will follow up in the office in approximately 1 week. He was given a prescription for pain medication p.r.n.. He was asked to call the office for fever, chills, nausea, vomiting, or other concerns regarding surgery. He expressed understanding and agrees with the plan. Time spent discussing smoking cessation with patient: 3 to 10 minutes Status at Discharge Functional status at discharge: independent ambulation Overall status at discharge: patient is back to baseline Time Spent with Patient Time attestation: Total time spent providing and/or coordinating discharge services: Discharge coordination time: Less than 30 minutes Quality: Safe Use of Opioids Does Pt have an Active Cancer Diagnosis on the Problem List?: No Quality: Stroke Does the patient have a stroke diagnosis?: No Physical Exam Vital Signs: Vital Signs: Last Vital Signs Temp 97.1 F 03/08/22 03:43 Pulse 67 03/08/22 03:43 Resp 18 03/08/22 03:43 BP 91/56 L 03/08/22 03:43 Pulse Ox 96 03/08/22 03:43 BMI result Body Mass Index 35.9 Const: General: comfortable and no acute distress Nutritional Appearance: well nourished Orientation/consciousness: patient oriented x3 Limitations: no limitations Resp: Effort & Inspection: normal respiratory effort, no audible wheezes, no cough and no respiratory distress GI: Other: Trocar incisions are clean, dry, and intact without redness or discharge. Inspection: Yes normal to inspection Palpation (GI): Soft to palpation, nontender, no guarding and not rigid Skin: Other: Warm, dry, no rash Neuro: General: patient oriented x3 Extrem: Other: No edema DS: Data Data Completed and Pending Pending studies at discharge: Pending at discharge 03/07/22 10:31 Surgical [PTH] Routine Labs on day of discharge: Preliminary micro results at discharge 03/07/22 01:17 Blood Culture - Preliminary Blood - Venous No growth after 24 hours. 03/07/22 01:17 Blood Culture - Preliminary Blood - Venous No growth after 24 hours. Discharge Plan Discharge Patient Disposition: Home, Self-Care Discharge Diagnosis: Acute appendicitis Referrals: Oziel Elliott MD [Primary Care Provider] - 1 Week Asim Lindsey MD [Physician] - 1 Week Discharge Medications: New oxycodone 5 mg Tablet 5 mg PO Q6H PRN (Reason: Pain, Moderate (Pain Scale 4-6) Qty: 14 0RF Continued escitalopram oxalate 10 mg tablet 10 mg PO DAILY Qty: 30 0RF lisinopril 30 mg tablet 30 mg PO DAILY 0RF Discharge Orders: Discharge Order (Routine); Ordered 03/08/22 Ordered By: Asim Lindsey Diet: advance to usual diet Activity on Discharge: No heavy lifting Stand Alone Forms: Patient Portal Discharge page Care Plan Goals: Return to normal activity and diet Health Concerns: abdominal pain in the lower abdomen Plan of Treatment: Laparoscopic appendectomy Assessment: Acute appendicitis Discharge Date/Time: 03/08/22 10:27
[2022-03-08 08:00] VITALS: BP 119/70; PULSE 75; RESP 17; TEMP 36.4; O2SAT 97
[2022-03-08] MEDS: lisinopriL 10 MG TABLET 30 MG PO (08:51)
[2022-03-08] MEDS: Escitalopram Oxalate 10 MG TABLET PO (08:52)
[2022-03-08] MEDS: 0.9 % Sodium Chloride Flush 3 ML SYRINGE IVFLUSH (08:52)
[2022-03-08] MEDS: oxyCODONE HCl Immed Release 5 MG TABLET PO (08:58)
--- NOTE | 2022-03-08 09:47 | HO.POSTANES ---
Post Anesthesia Evaluation Post Anesthesia Evaluation Vital Signs: Vital Signs Temp Pulse Resp BP Pulse Ox 03/08/22 08:00 97.5 F 75 17 119/70 97 03/08/22 03:43 97.1 F 67 18 91/56 L 96 03/07/22 23:42 97.3 F 77 19 108/67 96 Anesthesia: General Mental Status: Awake Pain Control: Satisfactory Nausea/Vomiting: None Hydration: Adequate Anesthesia-Related Issues: No Anes. Related Issues
[2022-03-08 09:50] VITALS: O2SAT 95
--- NOTE | 2022-03-08 10:02 | MHC.CM.PN ---
NURSE MEDICAL VOUCHER CLERK NOTE\ ELECTRONIC MEDICAL RECORD REVIEWED ALOBG WITH CASE DISCUSSED WITH STAFF NURSE, MET PATIENT AND HIS . S/P LAP APPY AND WILL BE D/C TODAY . ACTIVE ,INDEPENDENT, IN ALL ADLS AND MOBILITY RETIRED, DRIVES NO SERVICES IN THE HOME. DISCHARGE PLAN HOME WITH NO SERVICES TRANSPORTATION FAMILY PCP DR GOLDSTEIN FOLLOW UP FOR POST [facility] DISCHARGE SURGICAL FOLLOW UP PER SURGEON DISCHAGRE 0RDERS COVID VACINATED WITH EAN AND EAN AND REVA BOOSTER. HCP COPY REQUESTED.
== END 2022-03-08 10:27 | disposition home or self-care (01) | DRG 234 ==
LOC: HO.ED 03-07 01:33 → HO.EDOVER 03-07 01:53 → HO.S3 03-07 13:31
PROVIDERS: Admitting Provider Surgery; Emergency Provider Student in an Organized Health Care Education/Training Program; PCP Internal Medicine; Visit Provider Surgery
PROC: 0DTJ4ZZ Resection of Appendix, Percutaneous Endoscopic Approach (ICD-10-PCS; CPT 44970; principal; 2022-03-07 09:50)
DX: K35.80 Unspecified acute appendicitis (principal); E78.5 Hyperlipidemia, unspecified; I10 Essential (primary) hypertension; I71.4 Abdominal aortic aneurysm, without rupture; K21.9 Gastro-esophageal reflux disease without esophagitis; N48.6 Induration penis plastica; Z20.822 Contact with and (suspected) exposure to COVID-19; Z86.010 Personal history of colon polyps; Z87.891 Personal history of nicotine dependence; Z79.899 Other long term (current) drug therapy
CPT/HCPCS: 44970; 36415; 71045; 74176; 80048; 80053; 83605; 85025; 87040; 87502; 87635; 88304; 93005; 96361; 96365; 96375; 99285; J0690; J1100; J1170; J1885; J2250; J2405; J2543; J3010

== ENCOUNTER → 2022-03-15 15:17 | Outpatient (BNVA) | payer OTHER, SELFPAY | PROVIDERS: PCP Internal Medicine; Referring Provider Internal Medicine; Visit Provider Surgery | DX: K35.80 Unspecified acute appendicitis (principal); Z90.49 Acquired absence of other specified parts of digestive tract | CPT/HCPCS: 99212 ==

== ENCOUNTER → 2022-03-28 09:11 | Outpatient (BNVA) | payer OTHER, SELFPAY | PROVIDERS: PCP Internal Medicine; Visit Provider Surgery | DX: Z86.010 Personal history of colon polyps (principal) | CPT/HCPCS: 99212 ==

== ENCOUNTER 2022-05-02 09:01 | Outpatient (REF) | payer OTHER, SELFPAY ==
[2022-05-04 10:36] LABS: Lutenizing Hormone 1.3 mIU/mL (1.6-15.2)
[2022-05-09 18:25] LABS: Testosterone, Free 36.6 pg/mL (35.0-155.0); Testosterone, Total 230 ng/dL (250-1100)
== END 2022-05-02 09:02 | disposition home or self-care (01) ==
LOC: HO.10HDL 09:01
PROVIDERS: Visit Provider Urology
DX: N48.6 Induration penis plastica (principal); E29.1 Testicular hypofunction
CPT/HCPCS: 36415; 83001; 83002; 84402; 84403; 99212

== ENCOUNTER 2022-05-11 07:40 | Day surgery (SDC) | payer OTHER, SELFPAY ==
[2022-05-07 11:51] VITALS: BMI 34.4
--- NOTE | 2022-05-10 09:42 | HO.ANESPROP2 ---
Documented by User: Melba Rogers NP 05/10/22 09:44 HPI - Anesthesia Eval Consult details Narrative: 61yo M for Colonoscopy s/p lap appy 02/2022 with GA-ETT 7.5. Was cardiac cleared prior d/t aortic aneurysm, stable in size per echo. Cardiac risk is considered low.? It will be important to control his blood pressure in the perioperative.? Aggressively due to history of ascending aortic aneurysm.? Otherwise, can proceed. [facility] Active Problems Active Problems: All Active Problems (Updated 05/02/22 @ 08:57 by Mukesh Campbell MD) Precordial chest pain (Acute) SOB (shortness of breath) (Acute) Ascending aortic aneurysm (Acute) Peyronie's disease (Acute) Hepatic cyst (Acute) Status post appendectomy (Acute) Hypogonadism in male (Acute) History of adenomatous polyp of colon (Acute) Hypertension (Acute) Dyslipidemia (Acute) Anxiety (Acute) Obesity (BMI 30-39.9) (Acute) Insomnia (Acute) GERD without esophagitis (Acute) Impacted cerumen, left ear (Acute) Vitamin D deficiency (Acute) Essential hypertension (Acute) Family history of coronary artery disease (Acute) Chest pain (Acute) Past Medical History Medical History Acute appendicitis Anxiety Ascending aortic aneurysm Chest pain Dyslipidemia Essential hypertension Family history of coronary artery disease GERD without esophagitis History of adenomatous polyp of colon Hypertension Impacted cerumen, left ear Insomnia Obesity (BMI 30-39.9) Tubular adenoma of colon Vitamin D deficiency Family History Family History Mother Diabetes Heart problem CVA (cerebral vascular accident) Father Heart problem Family history of problems with anesthesia: No Surgical History Surgical History History of colonoscopy with polypectomy S/P appendectomy History of Problems with Anesthesia: No Social History Social History Household Members: Spouse Housing: House Do you presently have visiting nurse or other home services: No Alcohol intake: current Alcohol intake frequency: holidays/special occasions only Patient Tobacco Use Status: Former Tobacco user Quit Date: >50 yr Use of substances other than those prescribed or required for medical reasons: No Substance Use Type: Marijuana Are you DNR?: No Advance Directives: No Advance Directives Information Provided: Yes Advance Directives Date on File: 08/22/20 service: No Current occupational status: retired Cognitive needs: No Hearing needs: No Vision needs: Yes Meds Allergies Allergy/AdvReac Type Severity Reaction Status Date / Time No Known Allergies Allergy Verified 05/11/22 07:49 Home Medications Medication Instructions Recorded Confirmed Last Taken Type lisinopril 30 mg tablet 30 mg PO DAILY 06/28/21 05/07/22 Unknown History Exam Exam Date and Time: May 10, 2022 0942 Height,Weight and Vital Signs: Height 5 ft 10 in Weight 108.862 kg Pertinent Lab Results Pertinent Lab Results: Laboratory Tests 03/07/22 03/07/22 04:41 04:41 WBC 13.3 H Hgb 12.8 L Hct 39.3 L Plt Count 196 Sodium 136 Potassium 4.9 Chloride 104 Carbon Dioxide 26 BUN 13 Creatinine 0.96 Narrative Narrative: ECHO 02/2022 Conclusions: - 1.? Normal LV systolic function with grade 1 diastolic ? dysfunction? 2. Trivial aortic regurgitation? 3.? Dilated ascending aorta at 4.4 cm, unchanged from before ? ? 4.? Normal RV systolic pressure? 5.? No pericardial effusion? ?? EKG 02/2022 Vent. Rate : 073 BPM ? ? Atrial Rate : 073 BPM ?? P-R Int : 164 ms? QRS Dur : 090 ms ? ? QT Int : 418 ms ? ? ? P-R-T Axes : 062 -10 025 degrees ?? QTc Int : 460 ms ? Normal sinus rhythm Normal ECG When compared with ECG of 02-JAN-2021 03:05, Premature atrial complexes are no longer Present Assessment and Plan Assessment Anesthesia Assessment: Chart Reviewed Final Anesthetic Review Family History of Problems with Anesthesia: No History of Problems with Anesthesia: No Documented by User: Angie Vale MD 05/11/22 09:23 [facility] Past Medical History Medical History Acute appendicitis Anxiety Ascending aortic aneurysm Chest pain Dyslipidemia Essential hypertension Family history of coronary artery disease GERD without esophagitis History of adenomatous polyp of colon Hypertension Impacted cerumen, left ear Insomnia Obesity (BMI 30-39.9) Tubular adenoma of colon Vitamin D deficiency Functional capacity: independent ambulation Family History Family History Mother Diabetes Heart problem CVA (cerebral vascular accident) Father Heart problem Surgical History Surgical History History of colonoscopy with polypectomy S/P appendectomy Social History Social History Household Members: Spouse Housing: House Do you presently have visiting nurse or other home services: No Alcohol intake: current Alcohol intake frequency: holidays/special occasions only Patient Tobacco Use Status: Former Tobacco user Quit Date: >50 yr Use of substances other than those prescribed or required for medical reasons: No Substance Use Type: Marijuana Are you DNR?: No Advance Directives: No Advance Directives Information Provided: Yes Advance Directives Date on File: 08/22/20 service: No Current occupational status: retired Cognitive needs: No Hearing needs: No Vision needs: Yes Meds Allergies Allergy/AdvReac Type Severity Reaction Status Date / Time No Known Allergies Allergy Verified 05/11/22 07:49 Home Medications Medication Instructions Recorded Confirmed Last Taken Type lisinopril 30 mg tablet 30 mg PO DAILY 06/28/21 05/07/22 Unknown History Exam Airway Mallampati Class: II TM Dist: >3cm Neck ROM: Full Heart: RRR Lungs: CTA Assessment and Plan Final Anesthetic Review NPO: Yes ASA Class: III Final Preanesthetic Review: No Changes in Pt Med Stat, Meds/Allgs Chart Reviewed, Consent Obtained/Reviewed and Anes Risks/Benef Reviewed Patient Risk: Intermediate Procedure Risk: Low Anesthetic Plan Anesthetic Plan: GA Disposition: Standard PACU
[2022-05-11 08:01] VITALS: BP 115/81; PULSE 93; RESP 16; TEMP 36.8; O2SAT 95
[2022-05-11] MEDS: Lactated Ringers 1,000 ML 100 ML IVCONT (08:03)
--- NOTE | 2022-05-11 08:24 | MHC.SHP ---
Pre-Procedural Eval Section A Date of Service: 05/11/22 Section B Chief Complaint: hx of polyps Details of Present Illness: he had history of multiple small adenomas in 2019 Relevant Family History (Specify if Yes): No Relevant Social History: None Present Medications: see Short Stay Collaborative assessment Medical History: Significant History ( aortic aneurysm, hypogonadism, hypertension GERD, precordial chest pain) History of Previous Operations: Relevant previous surgery/procedure and date(s) ( previous colonoscopy with adenomas) Allergies: Allergies Allergy/AdvReac Type Severity Reaction Status Date / Time No Known Allergies Allergy Verified 05/11/22 07:49 Review of Systems Sugical H&P ROS: Negative: Constitution, Cardiovascular, Respiratory, Neurological, Psychiatric, Hem-Onc, Allergic/Immunologic, Gastrointestinal, Genitourinary, Musculoskeletal, Integumentary, Endocrine and Eyes/Ears/Nose/Throat Exam Surgical H&P Exam: Normal: HEENT, Normal: Heart, Normal: Lungs, Normal: Extremities, Normal: Abdomen, Normal: Skin and Normal: Neurological Plan Diagnosis/Plan: Unchanged I have reviewed the history and physical and performed a pertinent physical examination on my patient. No changes have occurred unless specified.
--- NOTE | 2022-05-11 09:07 | W.PM.OPN ---
Operative Note Operative Note Date of Service: 05/11/22 Narrative: Preop diagnosis: History of tubular adenomas Postop diagnosis: 1. Small polyp, hepatic flexure, about 2-3 mm in size, removed with forceps 2. small polyp, about 2 mm in size, at level 15 cm, removed with forceps 3. occasional diverticuli in the sigmoid 4. internal and external hemorrhoids Procedure: Colonoscopy with polypectomy using cold forceps x2 Surgeon: Hany Christian MD The patient is a 61-year-old male with a history of multiple small polyps in 2019, for follow-up colonoscopy. He understood the technique of the procedure. He was aware of the risks, benefits, and alternatives He was brought to the operating room. He was placed in left lateral decubitus position under monitored anesthesia care. A full digital rectal exam was done. There were no palpable anal lesions. The tip of the Olympus colonoscope was gently introduced through the anal orifice and advanced with insufflation all the cecum. The cecum was intubated. The cecum was identified by visualization of the ileocecal valve as well as the appendiceal orifice. The cecal mucosa was unremarkable. The scope was gradually withdrawn with careful examination of the entire colonic mucosa being done with scope withdrawal. The patient had good bowel prep so it was unlikely that any lesion may have been missed. At the hepatic flexure was note of a small polyp probably about 2 mm in size removed with cold forceps. At level 15 cm there was note of another small polyp also about 2 mm in size removed with cold forceps. There was occasional diverticuli in the sigmoid. The rest of the rectum and anal canal including anal shelf were unremarkable. The scope was then withdrawn completely . He did have internal and external hemorrhoids The patient tolerated procedure well. There were no complication noted. Depending on the path report, I would probably recommend another colonoscopy in the next 5-10 years.
[2022-05-11 09:20] VITALS: BP 94/64; PULSE 78; RESP 22; TEMP 36.2; O2SAT 96
--- NOTE | 2022-05-11 09:23 | HO.POSTANES ---
Post Anesthesia Evaluation Post Anesthesia Evaluation Vital Signs: Vital Signs Temp Pulse Resp BP Pulse Ox O2 Del Method O2 Flow Rate 05/11/22 09:20 97.2 F 78 22 H 94/64 96 Nasal Cannula with ETCO2 3 05/11/22 08:01 98.3 F 93 16 115/81 95 Room Air Anesthesia: Monitored Mental Status: Awake Pain Control: Satisfactory Nausea/Vomiting: None Hydration: Adequate Anesthesia-Related Issues: No Anes. Related Issues
[2022-05-11 09:35] VITALS: BP 110/81; PULSE 77; RESP 16; TEMP 36.2; O2SAT 95
== END 2022-05-11 10:00 | disposition home or self-care (01) ==
PROVIDERS: PCP Internal Medicine; Visit Provider Surgery
PROC: 0DJD8ZZ Inspection of Lower Intestinal Tract, Via Natural or Artificial Opening Endoscopic (ICD-10-PCS; CPT 45378; principal; 2022-05-11 09:30)
DX: Z12.11 Encounter for screening for malignant neoplasm of colon (principal); Z86.010 Personal history of colon polyps; D12.3 Benign neoplasm of transverse colon; D12.7 Benign neoplasm of rectosigmoid junction; K57.30 Diverticulosis of large intestine without perforation or abscess without bleeding; K64.8 Other hemorrhoids; K64.4 Residual hemorrhoidal skin tags; K21.9 Gastro-esophageal reflux disease without esophagitis; E78.5 Hyperlipidemia, unspecified; E55.9 Vitamin D deficiency, unspecified; I71.2 Thoracic aortic aneurysm, without rupture; I10 Essential (primary) hypertension; Z79.899 Other long term (current) drug therapy; Z98.890 Other specified postprocedural states; Z87.891 Personal history of nicotine dependence
CPT/HCPCS: 45380; 88305

== ENCOUNTER 2022-07-18 06:22 | Outpatient (REF) | payer OTHER, SELFPAY ==
[2022-07-18 06:49] LABS: MANUAL DIFF FLAG NO
[2022-07-18 07:32] LABS: Appearance Urine Clear; Color Urine Yellow; Glucose Urine UA Negative (Negative); Leukocyte Esterase Urine Negative (Negative); Nitrite Urine Negative (Negative); Specific Gravity - Urine 1.025 (1.005-1.025); Urine Blood Negative (Negative); Urine Ketones Negative (Negative); Urine Protein Negative (Neg-Trace)
[2022-07-18 07:38] LABS: Basophils Absolute Auto 0.1 X10*3/uL (0.0-0.2); Basophils Percent Auto 0.9 % (0-2); Eosinophils Absolute Auto 0.1 X10*3/uL (0.0-0.4); Eosinophils Percent Auto 1.6 % (0-4); Hematocrit 44.1 % (42.0-52.0); Hemoglobin 14.1 g/dl (14.0-18.0); Imm Gran Abs Auto 0.02 X10*3/uL (0.00-0.03); Imm Gran Pct Auto 0.3 % (0.0-0.4); Lymphocytes Percent Auto 29.1 % (20-40); Mean Corpuscular Hemoglobin 30.5 pg (27.0-33.0); Mean Corpuscular Volume 95.5 fL (80.0-98.0); Mean Platelet Volume 9.9 fL (9.4-12.4); Monocytes Absolute Auto 0.6 X10*3/uL (0.1-1.2); Monocytes Percent Auto 8.5 % (2-11); Neutrophils Percent Auto 59.6 % (45-73); Platelet Count 206 X10*3/uL (160-400); Red Blood Count 4.62 X10*6/uL (4.60-5.80); Red Cell Distribution Width 14.2 % (11.0-16.0); White Blood Count 6.7 X10*3/uL (4.8-10.8)
[2022-07-18 07:52] LABS: Alanine Aminotransferase 13 U/L (0-40); Albumin Level 4.1 g/dL (3.5-5.0); Alkaline Phosphatase 58 U/L (39-117); Anion Gap 13 (12-20); Aspartate Amino Transferase 14 U/L (5-37); Bilirubin Total 0.4 mg/dL (0.0-1.0); Blood Urea Nitrogen 18 mg/dL (9-16); Calcium 9.2 mg/dL (8.4-10.2); Carbon Dioxide 27 mmol/L (22-29); Chloride 105 mmol/L (96-108); Cholesterol 203 mg/dL; Estimated Glomerular Filt Rate > 60; Glucose Fasting 93 mg/dL (60-99); HDL Cholesterol 36 mg/dL; LDL Cholesterol Calculated 150 mg/dl; Potassium 4.6 mmol/L (3.3-5.1); Sodium 140 mmol/L (135-145); Total Protein 6.7 g/dL (6.5-8.0); Triglycerides 87 mg/dL
[2022-07-18 08:16] LABS: Prostate Specific Antigen 1.29 ng/mL (<0.05-4.0); TSH reflex Free T4 2.78 uIU/mL (0.32-4.0); Vitamin D 25-OH Total 29.1 ng/mL (>30)
[2022-07-20 07:07] LABS: Lutenizing Hormone 3.1 mIU/mL (1.6-15.2)
[2022-07-23 14:46] LABS: Testosterone, Free 92.4 pg/mL (35.0-155.0); Testosterone, Total 620 ng/dL (250-1100)
== END 2022-07-18 06:23 | disposition home or self-care (01) ==
LOC: HO.LAB 06:22
PROVIDERS: Urology; PCP Internal Medicine; Visit Provider Internal Medicine
DX: Z00.00 Encounter for general adult medical examination without abnormal findings (principal); Z12.5 Encounter for screening for malignant neoplasm of prostate; I10 Essential (primary) hypertension; E55.9 Vitamin D deficiency, unspecified; N40.0 Benign prostatic hyperplasia without lower urinary tract symptoms; E29.1 Testicular hypofunction
CPT/HCPCS: 36415; 80053; 80061; 81003; 82306; 83002; 84153; 84402; 84403; 84443; 85025

== ENCOUNTER 2022-08-03 08:19 | Outpatient (REF) | payer OTHER, SELFPAY ==
--- NOTE | ~2022-08-03 | US_ITS ---
EXAMINATION: US ABDOMEN COMPLETE CLINICAL INFORMATION: Liver cyst. COMPARISON: CT abdomen and pelvis 03/07/2022. Limited abdominal ultrasound 01/02/2021. TECHNIQUE: Real-time imaging of the abdominal viscera. FINDINGS: PANCREAS: The head and the body the pancreas is homogeneous in echotexture. The kidney is obscured by overlying gas. ABDOMINAL AORTA: The proximal, mid, and distal segments are normal in caliber. INFERIOR VENA CAVA: Visualized portions are normal. LIVER: The liver is normal in size. The liver contour is normal. There is an anechoic cyst in the left hepatic lobe measuring 1.8 x 0.8 x 1.5 cm. There is no intrahepatic biliary duct dilatation seen. GALLBLADDER: Normal. The gallbladder is physiologically distended without evidence of stones, sludge, polyps, wall thickening or pericholecystic fluid. COMMON BILE DUCT: Normal in caliber measuring 0.3 cm in diameter. RIGHT KIDNEY: Normal. No hydronephrosis. No renal calculi or focal parenchymal lesions. The kidney measures 11.1 cm in maximum dimension. LEFT KIDNEY: Normal. No hydronephrosis. No renal calculi or focal parenchymal lesions. The kidney measures 11.1 cm in maximum dimension. SPLEEN: Normal. The spleen measures 8.6 cm in maximum dimension. FREE FLUID: None. US/US abdomen complete IMPRESSION: 1. Small left hepatic lobe cyst. The cyst was noted on recent CT abdomen exam 03/07/2022. 2. The rest of the abdominal ultrasound is unremarkable.
== END 2022-08-03 08:20 | disposition home or self-care (01) ==
LOC: HO.US 08:19
PROVIDERS: Visit Provider Internal Medicine
DX: K76.89 Other specified diseases of liver (principal)
CPT/HCPCS: 76700

== ENCOUNTER → 2022-09-24 08:15 | Outpatient (REF) | payer OTHER, SELFPAY ==
--- NOTE | 2022-09-24 08:18 | CA_ITS ---
Transthoracic Echocardiogram Patient (Last, First, Middle): Tank Ledezma, Gender: Male Date of : 1960 Age: 62 Procedure Date: 09/24/2022 Procedure Type: Transthoracic Echocardiogram Location: OP Height: 177.8 cm Weight: 109.77 kg BSA: 2.26 m2 Heart Rate: 80 bpm BP: 115 / 80 mmHg Data Migration Consultant: HEATHER Turner MD: Sean Joiner MD Data Security Coordinator: Leobardo Shah MD Symptoms: I71.2 - Thoracic aortic aneurysm, without rupture Study Quality: Fair/Contrast ECG Rhythm: Sinus Conclusions: - 1. Normal LV systolic function with LVEF of 55-60% with impaired relaxation filling pattern 2. Normal cardiac valvular Doppler 3. Mildly dilated ascending aorta 4.3 cm 4. No gross pericardial effusion Findings Procedure Information Contrast agent, definity, is being given per protocol without apparent complications. Left Ventricle Normal left ventricular size, thickness, and systolic function. The visually estimated ejection fraction is between 55-60%. Spectral Doppler is indicative of an impaired relaxation filling pattern. Right Ventricle Normal right ventricular cavity size. Atria The left atrium is normal in size. There is lipomatous hypertrophy of the interatrial septum. There is no evidence of interatrial shunt. The right atrium was not well visualized. Aortic Valve The aortic valve structure and function is likely normal. There is no aortic valve stenosis. There is no aortic valve regurgitation. Mitral Valve Normal mitral valve structure and function. There is trace mitral valve regurgitation. There is no mitral valve stenosis. Pulmonic Valve The pulmonic valve was not well visualized. Tricuspid Valve Likely normal tricuspid valve structure and function. Tricuspid regurgitation envelope is inadequate for calculation of right ventricular systolic pressure. Great Vessels There is mild dilatation of the ascending aorta measuring 4.30 cm. Venous The inferior vena cava is normal in size and collapses greater than 50% with inspiration. Pericardium/Pleural There is no evidence of pericardial effusion. Prior Study Comparison No significant change compared to prior study dated: 12/07/2021. Measurements 2D Linear Measurements IVSd: 1.32 0.6-0.9/0.6-1.0 cm LVIDd: 4.69 3.9-5.3/4.2-5.9 cm LVIDd Index: 2.08 2.4-3.2/2.2-3.1 cm/m2 LVIDs: 3.27 2.0-3.6 cm LVPWd: 1.01 0.7-1.1 cm LA Diam: 3.00 2.7-3.8/3.0-4.0 cm LAIDs Index: 1.33 1.5-2.3 cm/m2 LV Mass: 252.50 67-162/88-224 g LV Mass Index: 111.72 43-95/49-115 g/m2 LVOT Diam: 2.20 3.0+(-)1.3 cm 2D Systolic Function EF 4C: 52.30 >55% EF 2C: 59.80 >55% EF BiP: 55.20 >55% Mitral Valve MV Pk E: 0.56 MV PK A: 0.65 MV Decel Time: 172.00 E/A: 0.90 E'Lateral: 6.85 E'Medial: 4.57 E/E' Med: 12.30 E/E' Lat: 8.20 PHT: 50.00 MVA PHT: 4.40 Decel [place]: 3.26 Aortic Valve AoV Pk Liam: 1.20 AoV Mn Liam: 0.86 AoV VTI: 0.23 AoV Pk Grad: 6.00 Aov Mn Grad: 3.00 MADDY Cont.VTI: 3.10 LVOT LVOT Pk Liam: 1.04 LVOT Mn Liam: 0.66 LVOT VTI: 0.19 LVOT Pk Grad: 4.00 LVOT Mn Grad: 2.00 LVOT Diam: 2.20 LVOT Area: 3.80 Diastolic Function MV Pk E: 0.56 MV Pk A: 0.65 E/A: 0.90 E'Medial: 4.57 E/E' Med: 12.30 E' Laterial: 6.85 E/E' Lat: 8.20 Right Ventricle TAPSE (mm): 23.80 TVS' Liam: 8.92 Tricuspid Valve TR Pk Liam: 2.13 TR Pk Grad: 18.00 Great Vessels Aorta Sinus of Valsalva: 3.90 2.0-3.5 cm Ao Asc: 4.30 2.1-3.4 cm Pulmonary Valve PV Pk Liam: 0.88 Peak PV Grad: 3.00 Updated in Other Vendor System with Status of Final Leobardo Shah MD electronically signed on 09/28/2022 2:38:55 PM with status of Final
== END ==
LOC: HO.CARD 08:15
PROVIDERS: PCP Internal Medicine; Visit Provider Internal Medicine
DX: I71.20 Thoracic aortic aneurysm, without rupture, unspecified (principal)
CPT/HCPCS: 93306; Q9957

== ENCOUNTER → 2022-10-16 09:03 | Outpatient (BNVA) | payer OTHER, SELFPAY | PROVIDERS: PCP Internal Medicine; Referring Provider Internal Medicine; Visit Provider Internal Medicine | DX: I71.20 Thoracic aortic aneurysm, without rupture, unspecified (principal); I10 Essential (primary) hypertension | CPT/HCPCS: 99212 ==

== ENCOUNTER 2023-02-05 06:42 | Outpatient (REF) | payer OTHER, SELFPAY ==
[2023-02-05 08:51] LABS: Prostate Specific Antigen 1.39 ng/mL (<0.05-4.0)
[2023-02-09 14:19] LABS: Testosterone, Total 783 ng/dL (250-1100)
== END 2023-02-05 06:43 | disposition home or self-care (01) ==
LOC: HO.LAB 06:42
PROVIDERS: PCP Internal Medicine; Visit Provider Urology
DX: Z12.5 Encounter for screening for malignant neoplasm of prostate (principal); E29.1 Testicular hypofunction
CPT/HCPCS: 36415; 84153; 84403

== ENCOUNTER → 2023-02-14 11:37 | Outpatient (BNVA) | payer OTHER, SELFPAY | PROVIDERS: PCP Internal Medicine; Visit Provider Urology | DX: E29.1 Testicular hypofunction (principal); N48.6 Induration penis plastica; N52.01 Erectile dysfunction due to arterial insufficiency; I10 Essential (primary) hypertension; Z79.899 Other long term (current) drug therapy | CPT/HCPCS: 99212 ==

== ENCOUNTER 2023-06-12 08:56 | Outpatient (AMB) | payer OTHER, SELFPAY ==
--- NOTE | 2023-06-12 09:27 | AM.OFFWIN_ITS ---
Intake Vital Signs 06/12/23 09:29 Height 5 ft 10 in Weight 242 lb BMI 34.7 BP 126/78 Blood Pressure Location Rt brachial Position Sitting Pulse 98 Pulse Source Pulse Oximeter Temp 97.8 F Temp Source Temporal Artery Scan Pulse Oximetry (%) 100 Oxygen Delivery Method Room Air Intake Visit Reasons: EP Cough/Post COVID 1 month (masked) Intake Note: Pt is here c/o persistent cough that is affecting his lower back. Pt states he has had a cough since he tested positive for COVID one month ago. Patient Tobacco Use Status: Former Tobacco user Quit Date: >50 yr Allergies No Known Allergies Allergy (Verified 06/12/23 10:14) Medication List - Last Reconciled 06/12/23 by Paul Quiros MD escitalopram oxalate 10 mg PO DAILY lisinopril 30 mg PO DAILY nirmatrelvir-ritonavir 300 mg (150 mg x 2)-100 mg (Paxlovid) take TWO 150 mg tablets of nirmatrelvir with ONE 100 mg tablet of ritonavir twice daily for 5 days PO pentoxifylline ER 400 mg PO BID 90 days tadalafil 5 mg PO DAILY 90 days vitamin E (dl, acetate) 450 mg PO DAILY 90 days HPI EP Cough/Post COVID 1 month (masked) HPI Details 62-year-old male presents to the office for a sick visit. Patient was diagnosed with COVID a few weeks ago. He fully recovered but continues to have a nagging cough. The cough is irritating and spasmodic. Nonproductive in nature. No associated fever or chills. [facility] Medical History Acute appendicitis Anxiety Ascending aortic aneurysm Chest pain Dyslipidemia Essential hypertension Family history of coronary artery disease GERD without esophagitis History of adenomatous polyp of colon Hypertension Impacted cerumen, left ear Insomnia Obesity (BMI 30-39.9) Tubular adenoma of colon Tubular adenoma of colon Vitamin D deficiency Surgical History History of colonoscopy with polypectomy S/P appendectomy Family History Mother Diabetes Heart problem CVA (cerebral vascular accident) Father Heart problem Social History Household Members: Spouse Housing: House Do you presently have visiting nurse or other home services: No Alcohol intake: current Alcohol intake frequency: holidays/special occasions only Patient Tobacco Use Status: Former Tobacco user Quit Date: >50 yr Substance Use Type: Marijuana Advance Directives Date on File: 08/22/20 service: No Current occupational status: retired Cognitive needs: No Hearing needs: No Vision needs: Yes Physical Exam Vital Signs: Last Vital Signs Temp 97.8 F 06/12/23 09:29 Pulse 98 06/12/23 09:29 BP 126/78 06/12/23 09:29 Pulse Ox 100 06/12/23 09:29 Oxygen Delivery Method Room Air 06/12/23 09:29 BMI result Body Mass Index 34.7 Const General: cooperative and healthy appearing Nutritional Appearance: well nourished Orientation/consciousness: patient oriented x3 Limitations: no limitations HEENT Head: Yes normal to inspection Eyes General: appearance normal, both eyes and all related structures Neck Neck: Yes normal visual inspection Chest Chest palpation & inspection: normal palpation of entire chest wall Resp Other: Scattered wheeze bilaterally. Effort & Inspection: normal respiratory effort Neuro General: patient oriented x3 Assessment & Plan Assessment & Plan (1) Cough: Code(s): R05.9 - Cough, unspecified Plan: Reactive airway disease. Chest x-ray was personally reviewed by me. No infiltrate seen. Antibiotics, prednisone and albuterol called in. If symptoms not better to follow-up here. Orders: Orders XR chest 2V Today R05.9 - Cough, unspecified Coding Level of Care Code Est Pt Level 4 (14587) Diagnoses Cough R05.9
[2023-06-12 09:29] VITALS: BP 126/78; PULSE 98; TEMP 36.6; O2SAT 100; BMI 34.7
== END 2023-06-12 10:29 | disposition home or self-care (01) ==
PROVIDERS: PCP Internal Medicine; Visit Provider Internal Medicine
DX: R05.9 Cough, unspecified (principal)
CPT/HCPCS: 99214

== ENCOUNTER 2023-06-12 09:56 | Outpatient (REF) | payer OTHER, SELFPAY ==
--- NOTE | ~2023-06-12 | XR_ITS ---
EXAMINATION: XR CHEST CLINICAL INFORMATION: Cough COMPARISON: 03/07/2022 TECHNIQUE: 2 views of the chest were obtained. FINDINGS: No significant abnormality is noted involving the heart, lungs, mediastinum, or soft tissues. Mild degenerative changes. XR/XR chest 2V IMPRESSION: Unremarkable examination with no interval change.
== END 2023-06-12 09:57 | disposition home or self-care (01) ==
LOC: HO.HMGCX 09:56
PROVIDERS: PCP Internal Medicine; Visit Provider Internal Medicine
DX: R05.9 Cough, unspecified (principal)
CPT/HCPCS: 71046

== ENCOUNTER 2023-07-01 07:02 | Outpatient (REF) | payer OTHER, SELFPAY ==
[2023-07-01 08:57] LABS: Prostate Specific Antigen 1.68 ng/mL (<0.05-4.0)
== END 2023-07-01 07:03 | disposition home or self-care (01) ==
LOC: HO.LAB 07:02
PROVIDERS: Urology; PCP Internal Medicine; Visit Provider Internal Medicine
DX: N40.0 Benign prostatic hyperplasia without lower urinary tract symptoms (principal); E29.1 Testicular hypofunction
CPT/HCPCS: 36415; 84153; 84403

== ENCOUNTER 2023-07-16 08:36 | Outpatient (AMB) | payer OTHER, SELFPAY ==
[2023-07-16 08:38] VITALS: BP 110/84; PULSE 85; O2SAT 94; BMI 34.8
--- NOTE | 2023-07-16 08:38 | A.OFFPC_ITS ---
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 Accompanied by: Self / Same As Patient Allergies No Known Allergies Allergy (Verified 07/16/23 09:11) Medication List - Last Reconciled 07/16/23 by Oziel Elliott MD albuterol sulfate 90 mcg/actuation (Ventolin HFA) 1 inh inhalation QID PRN escitalopram oxalate 10 mg PO DAILY lisinopril 30 mg PO DAILY pentoxifylline ER 400 mg PO BID 90 days tadalafil 5 mg PO DAILY 90 days vitamin E (dl, acetate) 450 mg PO DAILY 90 days Tobacco use date assessed: 07/16/23 Fall risk assessment: No Falls in past year Last assessed Fall Risk: 07/16/23 Dental Screening Dental Screen Date: 07/16/23 Did you have a dental visit in the last 12 months?: No Did you have a dental problem in the last 6 months where you did not have access to dental care?: No Was dental information given to patient?: No HPI PE HPI Details Patient comes in today for his annual physical examination States that he feels okay Had a bout of COVID a few weeks ago (states that he caught it from his brother) and states that it took a while for him to completely recover from his symptoms States that he had to go to the walk-in clinic a couple of weeks ago for some lingering cough and congestion and he was prescribed a course of Z-vinita, which he states eventually cleared up his symptoms He denies any headaches or dizziness Denies any chest pains and states that he currently has no shortness of breath or any residual chest congestion No nausea/vomiting, no abdominal pain No change in bowel habits noted Denies any acute urinary symptoms Had his last repeat colonoscopy done in April 2022 - recommend repeat in 5 years due to tubular adenoma [facility] Medical History (Updated 07/16/23 @ 09:14 by Oziel Elliott MD) History of adenomatous polyp of colon Ascending aortic aneurysm Acute appendicitis Anxiety Obesity (BMI 30-39.9) Insomnia GERD without esophagitis Impacted cerumen, left ear Tubular adenoma of colon Vitamin D deficiency Dyslipidemia Essential hypertension Family history of coronary artery disease Surgical History S/P appendectomy History of colonoscopy with polypectomy Family History Mother Diabetes Heart problem CVA (cerebral vascular accident) Father Heart problem Social History Household Members: Spouse Housing: House Do you presently have visiting nurse or other home services: No Alcohol intake: current Alcohol intake frequency: holidays/special occasions only Patient Tobacco Use Status: Former Tobacco user Quit Date: >50 yr Substance Use Type: Marijuana Advance Directives Date on File: 08/22/20 service: No Current occupational status: retired Cognitive needs: No Hearing needs: No Vision needs: Yes Questionnaire PHQ-9 Over the last 2 weeks, how often have you been bothered by any of the following problems? 1. Little interest or pleasure in doing things: not at all 2. Feeling down, depressed, or hopeless: not at all 3. Trouble falling or staying asleep, or sleeping too much: not at all 4. Feeling tired or having little energy: not at all 5. Poor appetite or overeating: not at all 6. Feeling bad about yourself - or that you are a failure or have let yourself or your family down: not at all 7. Trouble concentrating on things, such as reading the newspaper or watching television: not at all 8. Moving or speaking so slowly that other people could have noticed. Or the opposite - being so fidgety or restless that you have been moving around a lot more than usual: not at all 9. Thoughts that you would be better off or of hurting yourself in some way: not at all Total score: 0 Depression Screening Interpretation: Negative 73038 - PHQ-9 Billing: Yes Source: Developed by Drs. Mau Huddleston, Mayra Wiseman, Roge Fink and colleagues, with an educational karen from [employer]. Thrive Questionnaire Date Thrive assessed: 07/16/23 I am a: Patient What is your living situation today?: I have a steady place to live Within the past 12 months, did the food you bought not last and you didn't have the money to get more?: Never true Within the past 12 months, did you worry whether your food would run out before you got money to buy more?: Never true Do you have trouble paying for medicines?: No Do you have trouble getting transportation to medical appointments?: No Do you have trouble paying your heating and electricity bill?: No Do you have trouble taking care of your child, family member or friend?: No Do you have trouble with day-to-day activities such as bathing, preparing meals, shopping, managing finances, etc.?: No Are you currently unemployed and looking for a job?: No Are you interested in more education?: No Please select the resources that you would like help with: None Currently or been in a relationship where the following occur: no concerns reported AUDIT C Alcohol Use Questionnaire (AUDIT-C) 1. How often do you have a drink containing alcohol?: 2-4 times a month 2. How many drinks containing alcohol do you have on a typical day when you are drinking?: 1 or 2 3. How often do you have six or more drinks on one occasion?: Never Total Score: 2 Score Reviewed/Action Taken: Yes VICK-7 AMB Questionnaire VICK-7 Date VICK - 7 assessed: 07/16/23 Feeling nervous, anxious, or on edge: 0 = Not at all Not being able to stop or control worryin = Not at all Worrying too much about different things: 0 = Not at all Trouble relaxin = Not at all Being so restless that it is hard to sit still: 0 = Not at all Becoming easily annoyed or irritable: 0 = Not at all Feeling afraid as if something awful might happen: 0 = Not at all Total VICK-7 score (0-4 normal; 5-9 mild; 10-14 moderate; 15-21 severe): 0 Source: Developed by Drs. Mau Huddleston, Mayra Wiseman, Roge Fink and colleagues, with an educational karen from [employer]. Review of Systems Const Denies chills, Denies fatigue, Denies fever(s), Denies headache(s), Denies malaise and Denies weakness Eyes Denies blurry vision, Denies change in vision, Denies irritation and Denies itchy eyes ENT Denies dysphagia, Denies dizziness, Denies otalgia, Denies headache(s), Denies nasal congestion, Denies neck pain, Denies odynophagia and Denies sore throat Card Denies chest pain, Denies rapid heart rate, Denies irregular heart rhythm, Denies palpitations and Denies dyspnea Resp Denies chest congestion, Denies cough, Denies dyspnea and Denies wheezing GI Denies abdominal pain, Denies bloating, Denies constipation, Denies dysphagia, Denies heartburn, Denies diarrhea, Denies nausea, Denies odynophagia and Denies vomiting Denies hematuria, Denies difficulty urinating, Denies dysuria, Denies urinary frequency and Denies urinary urgency Musc Denies back pain, Denies arthralgias, Denies joint swelling, Denies muscle weakness and Denies neck pain Skin/Breast Denies change in pigmentation, Denies lesions, Denies rash and Denies unusual bruising Neuro Denies dizziness, Denies headache(s), Denies paresthesias and Denies weakness Endo Denies fatigue and Denies palpitations Aller/Immun Denies itchy eyes and Denies wheezing Physical exam (Primary Care) Vital Signs: Last Vital Signs Pulse 85 07/16/23 08:38 BP 110/84 07/16/23 08:38 Pulse Ox 94 07/16/23 08:38 Oxygen Delivery Method Room Air 07/16/23 08:38 BMI result Body Mass Index 34.8 Tobacco/Smoking Status: Tobacco use Status Tobacco use date assessed 07/16/23 07/16/23 08:43 Patient Tobacco Use Status Former Tobacco user 07/16/23 08:43 PHQ-9: PHQ-9 Score PHQ-9: Total score 0 07/16/23 08:43 Depression Screening Interpretation: Negative Thrive Assessment: Date of Thrive Assessment Date Thrive assessed 07/16/23 07/16/23 08:43 Currently or been in a relationship where the following occur: no concerns reported Const General: no acute distress, alert and awake Orientation/consciousness: patient oriented x3 HENMT Head: Yes normocephalic and Yes atraumatic Ears: external ears normal, TM's normal bilaterally and EAC's normal General nose exam: No nasal discharge present Face and sinus: Yes normal facial exam and Yes sinuses nontender Teeth and gingiva: dentition normal Throat: Yes posterior oropharynx normal and Yes tonsils normal (no TP congestion) Eyes Eyelids: Yes eyelids normal Conjunctivae: conjunctivae normal Pupils: Equal, round and reactive pupils present EOM: EOMs intact bilaterally Neck Neck: Yes no lymphadenopathy and Yes supple Thyroid: Thyroid normal Resp Auscultation: clear to auscultation bilaterally, no rales and no wheezes Cardio Rate: regular rate Rhythm: regular rhythm Heart sounds: no murmurs GI Palpation (GI): Soft to palpation, nontender and No hepatosplenomegaly present Auscultation: normal bowel sounds General: Yes no CVA tenderness Back/Spine/Pelvis Back: no CVA tenderness Thoracic/Lumbar Spine: thoracic and lumbar spine normal to inspection Skin Lesions: no lesions Rashes: no rashes Neuro General: patient oriented x3, moves all extremities, no focal motor deficits and CN's II-XI intact bilaterally Cranial nerves: Yes Equal, round and reactive pupils present Cognition (Neuro): normal cognition Gait exam (Neuro): Normal gait present Extrem General: Yes no clubbing, cyanosis or edema Assessment and Plan Assessment & Plan (1) Annual physical exam: Code(s): Z00.00 - Encounter for general adult medical examination without abnormal findings Plan: Check labs SHERRIE - previous lab orders printed out for patient Patient went to the lab a couple of weeks ago but inexplicably, only his PSA was done and all the rest of his lab orders were completely ignored He is up-to-date with his cancer screenings (2) Essential hypertension: Code(s): I10 - Essential (primary) hypertension Plan: Reinforced low sodium diet - goal is systolic BP of 120 mm or less Continue Lisinopril 30 mg QD (3) Dyslipidemia: Comment: no meds, being watched Code(s): E78.5 - Hyperlipidemia, unspecified Plan: Will have patient go and get his follow up labs done SHERRIE Reinforced low cholesterol diet Will recheck his labs and fasting lipids in 4 months for follow up (4) GERD without esophagitis: Code(s): K21.9 - Gastro-esophageal reflux disease without esophagitis Plan: Dietary restrictions reinforced Patient takes his Omeprazole only as needed when his symptoms flare up (5) Vitamin D deficiency: Code(s): E55.9 - Vitamin D deficiency, unspecified Plan: Corrected on his previous labs Will recheck Vitamin D level for follow up (6) Ascending aortic aneurysm: Code(s): I71.2 - Thoracic aortic aneurysm, without rupture Qualifiers: Presence of rupture: without rupture Qualified Code(s): I71.21 - Aneurysm of the ascending aorta, without rupture Plan: Chest CTA done on 06/20/2021 showed an ascending thoracic aortic aneurysm with the maximum diameter measuring 4.0 x 4.5 cm Echocardiogram done in 11/2021 revealed normal LV systolic function with grade 1 diastolic dysfunction, trivial aortic regurgitation, dilated ascending aorta at 4.4 cm that is unchanged from before, normal RV systolic pressure?and no pericardial effusion Repeat echocardiogram done in September 2022 revealed no changes - ascending aorta is again mildly dilated at 4.3 cm Emphasized again strict BP control to keep his aneurysm from progressing Follow up with cardiology as scheduled (7) Hepatic cyst: Code(s): K76.89 - Other specified diseases of liver Plan: Hepatic US done in 12/2020 revealed a 1.5 cm hepatic cyst - confirmed on CTA done in 05/2021 Abdominal US done in July 2022 revealed again the small hepatic cyst seen previously on US and CT with no changes Will continue to monitor with US regularly (8) Peyronie's disease: Code(s): N48.6 - Induration penis plastica Plan: Follow up with urology as scheduled (9) Erectile dysfunction due to arterial insufficiency: Code(s): N52.01 - Erectile dysfunction due to arterial insufficiency Plan: Continue Tadalafil 5 mg QD and Pentoxifylline ER 400 mg BID Follow up with urology as scheduled (10) Insomnia: Code(s): G47.00 - Insomnia, unspecified Qualifiers: Insomnia type: unspecified Qualified Code(s): G47.00 - Insomnia, unspecified Plan: Sleep hygiene reinforced Has not needed to take his Trazodone lately; states that he did not really take it much or often when he was started on it last year (11) Anxiety: Code(s): F41.9 - Anxiety disorder, unspecified Plan: Doing well on Rx - continue Escitalopram 10 mg QD (12) Obesity (BMI 30-39.9): Code(s): E66.9 - Obesity, unspecified Plan: Reinforced diet/exercise as tolerated/lose weight Plan Follow up in 4 months Orders: Orders Comprehensive [place]. Panel Fast 4 Months E78.00 - Pure hypercholesterolemia, unspecified Lipid Panel 4 Months E78.00 - Pure hypercholesterolemia, unspecified Coding Level of Care Code Est Pt Prev Care 40-64y(01459) Diagnoses Annual physical exam Z00.00 Essential hypertension I10 Dyslipidemia E78.5 GERD without esophagitis K21.9 Vitamin D deficiency E55.9 Aneurysm of ascending aorta without rupture I71.21 Presence of rupture: without rupture Hepatic cyst K76.89 Peyronie's disease N48.6 Erectile dysfunction due to arterial insufficiency N52.01 Insomnia, unspecified type G47.00 Insomnia type: unspecified Anxiety F41.9 Obesity (BMI 30-39.9) E66.9
== END 2023-07-16 09:28 | disposition home or self-care (01) ==
PROVIDERS: Visit Provider Internal Medicine
DX: Z00.00 Encounter for general adult medical examination without abnormal findings (principal); I10 Essential (primary) hypertension; K21.9 Gastro-esophageal reflux disease without esophagitis; E55.9 Vitamin D deficiency, unspecified; I71.21 Aneurysm of the ascending aorta, without rupture; F41.9 Anxiety disorder, unspecified; E78.5 Hyperlipidemia, unspecified; K76.89 Other specified diseases of liver; N48.6 Induration penis plastica; N52.01 Erectile dysfunction due to arterial insufficiency; G47.00 Insomnia, unspecified; E66.9 Obesity, unspecified
CPT/HCPCS: 99396

== ENCOUNTER 2023-07-16 09:34 | Outpatient (REF) | payer OTHER, SELFPAY ==
[2023-07-16 09:55] LABS: MANUAL DIFF FLAG NO
[2023-07-16 10:33] LABS: Basophils Absolute Auto 0.1 X10*3/uL (0.0-0.2); Eosinophils Absolute Auto 0.1 X10*3/uL (0.0-0.4); Eosinophils Percent Auto 1.9 % (0-4); Hematocrit 42.9 % (42.0-52.0); Hemoglobin 14.1 g/dl (14.0-18.0); Imm Gran Abs Auto 0.01 X10*3/uL (0.00-0.03); Imm Gran Pct Auto 0.2 % (0.0-0.4); Lymphocytes Absolute Auto 1.6 X10*3/uL (1.2-4.9); Lymphocytes Percent Auto 25.6 % (20-40); Mean Corpuscular HGB Conc 32.9 g/dl (31.0-36.0); Mean Corpuscular Hemoglobin 31.1 pg (27.0-33.0); Mean Corpuscular Volume 94.7 fL (80.0-98.0); Monocytes Absolute Auto 0.7 X10*3/uL (0.1-1.2); Monocytes Percent Auto 10.8 % (2-11); Neutrophils Absolute Auto 3.8 x10*3/uL (2.0-8.3); Neutrophils Percent Auto 60.5 % (45-73); Platelet Count 240 X10*3/uL (160-400); Red Blood Count 4.53 X10*6/uL (4.60-5.80); Red Cell Distribution Width 14.2 % (11.0-16.0); White Blood Count 6.3 X10*3/uL (4.8-10.8)
[2023-07-16 10:43] LABS: Appearance Urine Clear; Color Urine Yellow; Glucose Urine UA Negative (Negative); Leukocyte Esterase Urine Negative (Negative); Nitrite Urine Negative (Negative); PH 5.5 (5.0-9.0); Specific Gravity - Urine 1.025 (1.005-1.025); Urine Blood Negative (Negative); Urine Ketones Negative (Negative); Urine Protein Negative (Neg-Trace)
[2023-07-16 11:19] LABS: Alanine Aminotransferase 18 U/L (0-40); Albumin Level 4.2 g/dL (3.5-5.0); Alkaline Phosphatase 70 U/L (39-117); Anion Gap 13 (12-20); Aspartate Amino Transferase 15 U/L (5-37); Bilirubin Total 0.3 mg/dL (0.0-1.0); Blood Urea Nitrogen 16 mg/dL (9-16); Calcium 9.7 mg/dL (8.4-10.2); Carbon Dioxide 26 mmol/L (22-29); Chloride 102 mmol/L (96-108); Cholesterol 194 mg/dL (<200); Estimated Glomerular Filt Rate > 60; Glucose Fasting 98 mg/dL (60-99); HDL Cholesterol 46 mg/dL (>40); LDL Cholesterol Calculated 120 mg/dL (<100); Potassium 4.1 mmol/L (3.3-5.1); Sodium 137 mmol/L (135-145); Total Protein 7.3 g/dL (6.5-8.0); Triglycerides 142 mg/dL (<150)
[2023-07-16 11:37] LABS: TSH reflex Free T4 2.62 uIU/mL (0.32-4.0); Vitamin D 25-OH Total 34.9 ng/mL (>30)
== END 2023-07-16 09:35 | disposition home or self-care (01) ==
LOC: HO.LAB 09:34
PROVIDERS: PCP Internal Medicine; Visit Provider Internal Medicine
DX: E78.00 Pure hypercholesterolemia, unspecified (principal); R30.0 Dysuria; E55.9 Vitamin D deficiency, unspecified; I10 Essential (primary) hypertension
CPT/HCPCS: 36415; 80053; 80061; 81003; 82306; 84443; 85025

== ENCOUNTER 2023-08-16 08:37 | Outpatient (AMB) | payer MEDICARE, SELFPAY ==
--- NOTE | 2023-08-16 08:40 | A.OFFVIS_ITS ---
Intake Intake Visit Reasons: 6M PSA/(Set) Intake Note: Patient is Present for Follow Up PSA Urology Medication: Tadalafil Antibiotic Allergies: None Blood Thinners: None Pharmacy: [facility] Allergies No Known Allergies Allergy (Verified 08/16/23 08:43) HPI HPI Comments History of Present Illness Details Tank is a pleasant male. He is a patient of Dr. Elliott. He is seen for the following urologic conditions - Peyronies disease - erectile dysfunction - borderline low testosterone Continued reasonable response Peyronie's resolved may stop pentoxifylline Continue with 5 mg daily tadalafil Does have some issues related to blood pressure occasionally Use on demand Viagra as short half-life Low testosterone Good response to clomiphene 50 mg q.o.d. Labs - 07/12 T 620 LH 3.1, 01/10 783 P1.4 Clomid stopped January 10 Erectile dysfunction Responded well to combination tadalafil and pentoxifylline Peyronie's disease Primary complaint is - penile curvature The problem has been present - since March 2021 At this time he experiences - partial erections sufficient for penetrative intercourse [facility] has - can be achieved however is uncomfortable On exam has thickening of dorsal left Associated symptoms include penile pain No penile discharge No Prior management includes - Associated conditions history of penile trauma No CAD No - does have dyslipidemia diabetes No erectile dysfunction No hypertension yes peripheral vascular disease No Investigations - 11/11 T 165, 05/11 230 LH 1.3 Therapeutic plan continue conservative therapy PFSH Medical History History of adenomatous polyp of colon Ascending aortic aneurysm Acute appendicitis Anxiety Obesity (BMI 30-39.9) Insomnia GERD without esophagitis Impacted cerumen, left ear Tubular adenoma of colon Vitamin D deficiency Dyslipidemia Essential hypertension Family history of coronary artery disease Surgical History S/P appendectomy History of colonoscopy with polypectomy Family History Mother Diabetes Heart problem CVA (cerebral vascular accident) Father Heart problem Social History Household Members: Spouse Housing: House Do you presently have visiting nurse or other home services: No Alcohol intake: current Alcohol intake frequency: holidays/special occasions only Patient Tobacco Use Status: Former Tobacco user Quit Date: >50 yr Substance Use Type: Marijuana Advance Directives Date on File: 08/22/20 service: No Current occupational status: retired Cognitive needs: No Hearing needs: No Vision needs: Yes Review of Systems Const Denies chills and Denies fever(s) Card Reports no additional complaints and Denies syncope Resp Denies cough GI Denies abdominal pain and Denies heartburn Reports as per HPI and Denies change in libido Neuro Denies syncope Psych Denies change in libido Endo Denies change in libido Physical Exam Const General: cooperative, healthy appearing, comfortable and no acute distress Orientation/consciousness: patient oriented x3 HEENT Face and sinus: Yes normal facial exam Mouth: moist mucous membranes Neck Neck: Yes normal visual inspection, Yes full ROM and Yes trachea midline Chest Chest palpation & inspection: normal inspection of the chest Resp Effort & Inspection: normal respiratory effort, able to speak in complete sentences and no respiratory distress GI Inspection: Yes normal to inspection Back/Spine/Pelvis Cervical Spine: normal cervical lordosis Thoracic/Lumbar Spine: thoracic and lumbar spine normal to inspection Skin General skin exam: no rashes or lesions noted Neuro General: patient oriented x3, gait normal, tone normal and moves all extremities Extrem General: Yes normal to inspection and Yes capillary refill normal Assessment & Plan Assessment & Plan (1) Erectile dysfunction due to arterial insufficiency: Code(s): N52.01 - Erectile dysfunction due to arterial insufficiency (2) Hypogonadism in male: Code(s): E29.1 - Testicular hypofunction Plan Six month follow-up Orders: Orders Prostate Specific Antigen 07/01/23 N40.0 - Benign prostatic hyperplasia without lower urinary tract symptoms Testosterone, Total 6 Months E29.1 - Testicular hypofunction Medications: New sildenafil administer 60 minutes before intended activity 100 mg PO ONCE 30 tabs 1RF sexual activity 30 days N52.01 - Erectile dysfunction due to arterial insufficiency Discontinued pentoxifylline ER Discontinued Reason: Doctor's Order 400 mg PO BID 180 tabs 1RF 90 days E29.1 - Testicular hypofunction Patient Instructions: Imaging studies, laboratory and physical exam results were discussed and reviewed in detail. No major barriers to patient understanding were identified. An opportunity to ask questions regarding the treatment plan was provided. All questions were answered. The patient expressed understanding and agreement with the above treatment plan. The patient is aware they should contact our office by phone for worsening of their current condition or the appearance of new urologic symptoms. Compliance is encouraged with any medications and followup testing that is ordered. It is a privilege to participate in the urologic care of your patient. If you have any questions or concerns regarding treatment for the above conditions, or other urologic issues, please do not hesitate to contact me. The office telephone contact is [phone]. This note is constructed using voice recognition software. While every effort has been made to ensure accuracy leather seasoner errors may have been included. Yours sincerely, Dr Mukesh Campbell MD, [facility] - Urology Providers of Expert, Compassionate Care for the Genitourinary System Coding Level of Care Code Est Pt Level 4 (85957) Diagnoses Erectile dysfunction due to arterial insufficiency N52.01 Hypogonadism in male E29.1
== END 2023-08-16 09:12 | disposition home or self-care (01) ==
PROVIDERS: Visit Provider Urology
DX: N52.01 Erectile dysfunction due to arterial insufficiency (principal); E29.1 Testicular hypofunction
CPT/HCPCS: 99214

== ENCOUNTER → 2023-08-16 08:37 | Outpatient (BNVA) | payer MEDICARE, MEDICAID, SELFPAY | PROVIDERS: Visit Provider Urology | DX: N52.01 Erectile dysfunction due to arterial insufficiency (principal); E29.1 Testicular hypofunction | CPT/HCPCS: 99212 ==

== ENCOUNTER 2023-10-30 08:41 | Outpatient (AMB) | payer OTHER, SELFPAY ==
[2023-10-30 08:46] VITALS: BP 110/82; PULSE 95; O2SAT 94; BMI 35.2
--- NOTE | 2023-10-30 08:46 | MHC.PC.OV ---
Vital Signs 10/30/23 08:46 Height 5 ft 10 in Weight 245 lb 4 oz BMI 35.2 BP 110/82 Blood Pressure Location Lt brachial Position Sitting Pulse 95 Pulse Source Pulse Oximeter Pulse Oximetry (%) 94 Oxygen Delivery Method Room Air Intake Visit Reasons: HTN, dyslipidemia Tax Commissioner Required: No Accompanied by: Self / Same As Patient Allergies No Known Allergies Allergy (Verified 10/30/23 09:16) Medication List - Last Reconciled 10/30/23 by Oziel Elliott MD escitalopram oxalate 10 mg PO DAILY lisinopril 30 mg PO DAILY tadalafil 5 mg PO DAILY 90 days Tobacco use date assessed: 10/30/23 Fall risk assessment: No Falls in past year Last assessed Fall Risk: 10/30/23 Dental Screening Dental Screen Date: 10/30/23 Did you have a dental visit in the last 12 months?: No Did you have a dental problem in the last 6 months where you did not have access to dental care?: No Was dental information given to patient?: No HPI HTN, dyslipidemia HPI Details Patient comes in today for his follow up visit States that he feels okay He denies any headaches or dizziness Denies any chest pains, no SOB No nausea/vomiting, no abdominal pain No change in bowel habits noted Was not able to get his follow up labs done prior to his visit today [facility] Medical History History of adenomatous polyp of colon Ascending aortic aneurysm Acute appendicitis Anxiety Obesity (BMI 30-39.9) Insomnia GERD without esophagitis Impacted cerumen, left ear Tubular adenoma of colon Vitamin D deficiency Dyslipidemia Essential hypertension Family history of coronary artery disease Surgical History S/P appendectomy History of colonoscopy with polypectomy Family History Mother Diabetes Heart problem CVA (cerebral vascular accident) Father Heart problem Social History Household Members: Spouse Housing: House Do you presently have visiting nurse or other home services: No Alcohol intake: current Alcohol intake frequency: holidays/special occasions only Patient Tobacco Use Status: Former Tobacco user Quit Date: >50 yr e-Cigarette/Vaping Use: Never Used Substance Use Type: Marijuana Advance Directives Date on File: 08/22/20 service: No Current occupational status: retired Cognitive needs: No Hearing needs: No Vision needs: Yes Questionnaire PHQ-9 Over the last 2 weeks, how often have you been bothered by any of the following problems? 1. Little interest or pleasure in doing things: not at all 2. Feeling down, depressed, or hopeless: not at all 3. Trouble falling or staying asleep, or sleeping too much: not at all 4. Feeling tired or having little energy: not at all 5. Poor appetite or overeating: not at all 6. Feeling bad about yourself - or that you are a failure or have let yourself or your family down: not at all 7. Trouble concentrating on things, such as reading the newspaper or watching television: not at all 8. Moving or speaking so slowly that other people could have noticed. Or the opposite - being so fidgety or restless that you have been moving around a lot more than usual: not at all 9. Thoughts that you would be better off or of hurting yourself in some way: not at all Total score: 0 Depression Screening Interpretation: Negative Depression Screening Done: Yes 32204 - PHQ-9 Billing: Yes Source: Developed by Drs. Mau Huddleston, Mayra Wiseman, Roge Fink and colleagues, with an educational karen from [employer] Thrive Questionnaire Date Thrive assessed: 10/30/23 I am a: Patient What is your living situation today?: I have a steady place to live Within the past 12 months, did the food you bought not last and you didn't have the money to get more?: Never true Within the past 12 months, did you worry whether your food would run out before you got money to buy more?: Never true Do you have trouble paying for medicines?: No Do you have trouble getting transportation to medical appointments?: No Do you have trouble paying your heating and electricity bill?: No Do you have trouble taking care of your child, family member or friend?: No Do you have trouble with day-to-day activities such as bathing, preparing meals, shopping, managing finances, etc.?: No Are you currently unemployed and looking for a job?: No Are you interested in more education?: No Please select the resources that you would like help with: None Currently or been in a relationship where the following occur: no concerns reported AUDIT C Alcohol Use Questionnaire (AUDIT-C) 1. How often do you have a drink containing alcohol?: 2-4 times a month 2. How many drinks containing alcohol do you have on a typical day when you are drinking?: 1 or 2 3. How often do you have six or more drinks on one occasion?: Never Total Score: 2 Score Reviewed/Action Taken: Yes VICK-7 AMB Questionnaire VICK-7 Date VICK - 7 assessed: 10/30/23 Feeling nervous, anxious, or on edge: 0 = Not at all Not being able to stop or control worryin = Not at all Worrying too much about different things: 0 = Not at all Trouble relaxin = Not at all Being so restless that it is hard to sit still: 0 = Not at all Becoming easily annoyed or irritable: 0 = Not at all Feeling afraid as if something awful might happen: 0 = Not at all Total VICK-7 score (0-4 normal; 5-9 mild; 10-14 moderate; 15-21 severe): 0 Source: Developed by Drs. Mau Huddleston, Mayra Wiseman, Roge Fink and colleagues, with an educational karen from [employer] Review of Systems Const Denies chills, Denies fatigue, Denies fever(s) and Denies headache(s) ENT Denies dysphagia, Denies dizziness, Denies otalgia, Denies headache(s), Denies odynophagia and Denies sore throat Card Denies chest pain, Denies rapid heart rate, Denies irregular heart rhythm, Denies palpitations and Denies dyspnea Resp Denies chest congestion, Denies cough, Denies dyspnea and Denies wheezing GI Denies abdominal pain, Denies constipation, Denies dysphagia, Denies heartburn, Denies diarrhea, Denies nausea, Denies odynophagia and Denies vomiting Denies difficulty urinating, Denies dysuria and Denies urinary frequency Musc Denies back pain, Denies arthralgias and Denies joint swelling Skin/Breast Denies rash Neuro Denies dizziness, Denies headache(s) and Denies paresthesias Endo Denies fatigue and Denies palpitations Aller/Immun Denies wheezing Physical exam (Primary Care) Vital Signs: Last Vital Signs Pulse 95 10/30/23 08:46 BP 110/82 10/30/23 08:46 Pulse Ox 94 10/30/23 08:46 Oxygen Delivery Method Room Air 10/30/23 08:46 BMI result Body Mass Index 35.2 Tobacco/Smoking Status: Tobacco use Status Tobacco use date assessed 10/30/23 10/30/23 08:52 Patient Tobacco Use Status Former Tobacco user 10/30/23 08:52 e-Cigarette/Vaping Use Never Used 10/30/23 08:52 PHQ-9: PHQ-9 Score PHQ-9: Total score 0 10/30/23 08:52 Depression Screening Interpretation: Negative Thrive Assessment: Date of Thrive Assessment Date Thrive assessed 10/30/23 10/30/23 08:52 Currently or been in a relationship where the following occur: no concerns reported Const General: no acute distress and alert HENMT Ears: TM's normal bilaterally and EAC's normal Throat: Yes posterior oropharynx normal and Yes tonsils normal (no TP congestion) Neck Neck: Yes no lymphadenopathy and Yes supple Resp Auscultation: clear to auscultation bilaterally, no rales and no wheezes Cardio Rate: regular rate Rhythm: regular rhythm Heart sounds: no murmurs GI Palpation (GI): Soft to palpation and nontender Auscultation: normal bowel sounds General: Yes no CVA tenderness Back/Spine/Pelvis Back: no CVA tenderness Skin Rashes: no rashes Extrem General: Yes no clubbing, cyanosis or edema Assessment and Plan Assessment & Plan (1) Essential hypertension: Code(s): I10 - Essential (primary) hypertension Plan: Reinforced low sodium diet - goal is systolic BP of 120 mm or less Continue Lisinopril 30 mg QD (2) Dyslipidemia: Comment: no meds, being watched Code(s): E78.5 - Hyperlipidemia, unspecified Plan: Have advised patient that his LDL cholesterol has improved from 150 to 120 mg/dl when he had his labs done AFTER his last visit He has not gotten his follow up labs done prior to this appt today Reinforced low cholesterol diet Will recheck his labs and fasting lipids in 4 months for follow up (3) GERD without esophagitis: Code(s): K21.9 - Gastro-esophageal reflux disease without esophagitis Plan: Dietary restrictions reinforced Patient takes his Omeprazole only as needed when his symptoms flare up (4) Vitamin D deficiency: Code(s): E55.9 - Vitamin D deficiency, unspecified Plan: Corrected on his previous labs Will recheck Vitamin D level in 4 months for follow up (5) Ascending aortic aneurysm: Code(s): I71.2 - Thoracic aortic aneurysm, without rupture Qualifiers: Presence of rupture: without rupture Qualified Code(s): I71.21 - Aneurysm of the ascending aorta, without rupture Plan: Chest CTA done on 06/20/2021 showed an ascending thoracic aortic aneurysm with the maximum diameter measuring 4.0 x 4.5 cm Echocardiogram done in 11/2021 revealed normal LV systolic function with grade 1 diastolic dysfunction, trivial aortic regurgitation, dilated ascending aorta at 4.4 cm that is unchanged from before, normal RV systolic pressure?and no pericardial effusion Repeat echocardiogram done in September 2022 revealed no changes - ascending aorta is again mildly dilated at 4.3 cm He is scheduled for a repeat echocardiogram on 11/08/2023 Emphasized again strict BP control to keep his aneurysm from progressing Follow up with cardiology as scheduled - has appt to see cardiology in a couple of weeks on 11/11/2023 (6) Hepatic cyst: Code(s): K76.89 - Other specified diseases of liver Plan: Hepatic US done in 12/2020 revealed a 1.5 cm hepatic cyst - confirmed on CTA done in 05/2021 Abdominal US done in July 2022 revealed again the small hepatic cyst seen previously on US and CT with no changes Will continue to monitor with US regularly (7) Peyronie's disease: Code(s): N48.6 - Induration penis plastica Plan: Follow up with urology as scheduled (8) Erectile dysfunction due to arterial insufficiency: Code(s): N52.01 - Erectile dysfunction due to arterial insufficiency Plan: Continue Tadalafil 5 mg QD; was previously also on Pentoxifylline ER 400 mg BID but this appears to have been discontinued recently Follow up with urology as scheduled (9) Insomnia: Code(s): G47.00 - Insomnia, unspecified Qualifiers: Insomnia type: unspecified Qualified Code(s): G47.00 - Insomnia, unspecified Plan: Sleep hygiene reinforced Has not needed to take his Trazodone lately; states that he did not really take it much or often when he was started on it last year (10) Anxiety: Code(s): F41.9 - Anxiety disorder, unspecified Plan: Continue Escitalopram 10 mg QD (11) Obesity (BMI 30-39.9): Code(s): E66.9 - Obesity, unspecified Plan: Reinforced diet/exercise as tolerated/lose weight Plan Follow up in 4 months Orders: Orders Complete Blood Count Auto Diff 4 Months I10 - Essential (primary) hypertension Comprehensive [place]. Panel Fast 4 Months E78.00 - Pure hypercholesterolemia, unspecified Lipid Panel 4 Months E78.00 - Pure hypercholesterolemia, unspecified TSH reflex Free T4 4 Months E78.00 - Pure hypercholesterolemia, unspecified UA CC w/rflx Micro + Cult 4 Months R30.0 - Dysuria Vitamin D 25-OH Total 4 Months E55.9 - Vitamin D deficiency, unspecified Coding Level of Care Code Est Pt Level 4 (38467) Diagnoses Essential hypertension I10 Dyslipidemia E78.5 GERD without esophagitis K21.9 Vitamin D deficiency E55.9 Aneurysm of ascending aorta without rupture I71.21 Presence of rupture: without rupture Hepatic cyst K76.89 Peyronie's disease N48.6 Erectile dysfunction due to arterial insufficiency N52.01 Insomnia, unspecified type G47.00 Insomnia type: unspecified Anxiety F41.9 Obesity (BMI 30-39.9) E66.9
== END 2023-10-30 09:37 | disposition home or self-care (01) ==
PROVIDERS: PCP Internal Medicine; Visit Provider Internal Medicine
DX: I10 Essential (primary) hypertension (principal); I71.21 Aneurysm of the ascending aorta, without rupture; E78.5 Hyperlipidemia, unspecified; K21.9 Gastro-esophageal reflux disease without esophagitis; E55.9 Vitamin D deficiency, unspecified; K76.89 Other specified diseases of liver; N48.6 Induration penis plastica; N52.01 Erectile dysfunction due to arterial insufficiency; G47.00 Insomnia, unspecified; F41.9 Anxiety disorder, unspecified; E66.9 Obesity, unspecified; Z82.49 Family history of ischemic heart disease and other diseases of the circulatory system
CPT/HCPCS: 99214

== ENCOUNTER → 2023-11-08 07:46 | Outpatient (REF) | payer OTHER, SELFPAY ==
--- NOTE | 2023-11-08 07:49 | CA_ITS ---
Transthoracic Echocardiogram Patient (Last, First, Middle): Tank Ledezma, Gender: Male Date of : 1960 Age: 63 Procedure Date: 11/08/2023 Procedure Type: Transthoracic Echocardiogram Location: OP Height: 177.8 cm Weight: 107.96 kg BSA: 2.25 m2 Heart Rate: 94 bpm BP: 118 / 80 mmHg Instant Potato Processor: SB Referring MD: Sean Joiner MD Symptoms: I71.2 - Thoracic aortic aneurysm, without rupture Study Quality: Adequate w contrast ECG Rhythm: Sinus Conclusions: - The left ventricular systolic function is normal. The calculated ejection fraction is 58% by biplane method. - No obvious valvular pathology seen on this study. - There is moderate dilatation of the ascending aorta measuring 4.60 cm. Findings Procedure Information Contrast agent, definity, is being given per protocol without apparent complications. Left Ventricle Normal left ventricular cavity size. The left ventricular systolic function is normal. The calculated ejection fraction is 58% by biplane method. There is no evidence of regional wall motion abnormalities. Diastolic function is normal for age. There is mild septal asymmetric hypertrophy. Right Ventricle The right ventricle was not well visualized. Atria Both atria are normal in size. Aortic Valve There is a normal trileaflet aortic valve. There is no aortic valve stenosis. There is no aortic valve regurgitation. Mitral Valve The mitral valve appears normal. There is no mitral valve regurgitation. There is no mitral valve stenosis. Pulmonic Valve The pulmonic valve is likely normal. Tricuspid Valve There is mild tricuspid valve regurgitation. There is no evidence of pulmonary hypertension. Great Vessels The aortic arch is normal in size. There is moderate dilatation of the ascending aorta measuring 4.60 cm. Venous The inferior vena cava is normal in size and collapses greater than 50% with inspiration. Pericardium/Pleural There is no evidence of pericardial effusion. Prior Study Comparison Changes noted compared to prior study dated: 09/24/2022. Increase in ascending aortic size. Recommendations, Care & Conclusions No obvious valvular pathology seen on this study. Measurements 2D Linear Measurements IVSd: 1.16 0.6-0.9/0.6-1.0 cm LVIDd: 5.20 3.9-5.3/4.2-5.9 cm LVIDd Index: 2.31 2.4-3.2/2.2-3.1 cm/m2 LVIDs: 3.64 2.0-3.6 cm LVPWd: 0.98 0.7-1.1 cm LA Diam: 4.10 2.7-3.8/3.0-4.0 cm LAIDs Index: 1.82 1.5-2.3 cm/m2 LV Mass: 264.19 67-162/88-224 g LV Mass Index: 117.42 43-95/49-115 g/m2 LVOT Diam: 2.20 3.0+(-)1.3 cm 2D Systolic Function EF 4C: 51.20 >55% EF 2C: 60.30 >55% EF BiP: 58.30 >55% Mitral Valve MV Pk E: 0.62 MV PK A: 0.71 MV Decel Time: 157.00 E/A: 0.90 E'Lateral: 6.74 E'Medial: 6.64 E/E' Med: 9.30 E/E' Lat: 9.20 PHT: 46.00 MVA PHT: 4.78 Decel [place]: 3.93 Aortic Valve AoV Pk Liam: 1.04 AoV Pk Grad: 4.00 MADDY: 3.95 LVOT LVOT Pk Liam: 0.99 LVOT Mn Liam: 0.79 LVOT VTI: 0.23 LVOT Pk Grad: 4.00 LVOT Mn Grad: 3.00 LVOT Diam: 2.20 LVOT Area: 3.80 Diastolic Function MV Pk E: 0.62 MV Pk A: 0.71 E/A: 0.90 E'Medial: 6.64 E/E' Med: 9.30 E' Laterial: 6.74 E/E' Lat: 9.20 Right Ventricle TVS' Liam: 10.60 Tricuspid Valve TR Pk Liam: 2.55 TR Pk Grad: 26.00 RA Press: 3.00 RVSP: 29.00 Great Vessels Aorta Sinus of Valsalva: 4.00 2.0-3.5 cm Ao Asc: 4.60 2.1-3.4 cm Ao Desc: 1.30 Pulmonary Valve PV Pk Liam: 0.90 Peak PV Grad: 3.00 Updated in Other Vendor System with Status of Final Sean Joiner MD electronically signed on 11/09/2023 3:07:11 PM with status of Final
== END ==
LOC: HO.CARD 07:46
PROVIDERS: PCP Internal Medicine; Visit Provider Internal Medicine
DX: I71.20 Thoracic aortic aneurysm, without rupture, unspecified (principal)
CPT/HCPCS: 93306; Q9957

== ENCOUNTER → 2023-11-08 07:49 | Outpatient (BNV) | payer OTHER, SELFPAY | PROVIDERS: PCP Internal Medicine; Visit Provider Internal Medicine | DX: I36.1 Nonrheumatic tricuspid (valve) insufficiency (principal) | CPT/HCPCS: 93306 ==

== ENCOUNTER 2023-11-11 13:11 | Outpatient (REF) | payer OTHER, SELFPAY ==
[2023-11-11 15:25] LABS: Anion Gap 12 (12-20); Blood Urea Nitrogen 18 mg/dL (9-16); Calcium 10.2 mg/dL (8.4-10.2); Carbon Dioxide 30 mmol/L (22-29); Chloride 101 mmol/L (96-108); Estimated Glomerular Filt Rate > 60; Glucose Random 85 mg/dL (60-115); Potassium 4.6 mmol/L (3.3-5.1); Sodium 138 mmol/L (135-145)
== END 2023-11-11 13:12 | disposition home or self-care (01) ==
LOC: HO.LAB 13:11
PROVIDERS: PCP Internal Medicine; Visit Provider Nurse Practitioner Family
DX: I71.21 Aneurysm of the ascending aorta, without rupture (principal); I10 Essential (primary) hypertension
CPT/HCPCS: 36415; 80048; 99212

== ENCOUNTER 2023-11-11 13:11 | Outpatient (AMB) | payer OTHER, SELFPAY ==
--- NOTE | 2023-11-11 13:14 | MHC.OFFVIS ---
Intake Vital Signs 11/11/23 13:15 Height 5 ft 10 in Weight 244 lb 11.41 oz BMI 35.1 BP 120/82 Blood Pressure Location Lt brachial Position Sitting Pulse 96 Intake Visit Reasons: follow up echo Security Solutions Architect Required: No Allergies No Known Allergies Allergy (Verified 11/11/23 13:16) Medication List - Last Reconciled 11/11/23 by Jagruti Camilo NP-C escitalopram oxalate 10 mg PO DAILY lisinopril 30 mg PO DAILY tadalafil 5 mg PO DAILY 90 days HPI follow up echo HPI Details Tank is a 63-year-old male past medical history of hypertension, hyperlipidemia, obesity, ascending aortic aneurysm who presents for follow-up after recent echocardiogram. Today he reports he has been feeling well with no concerning symptoms. He denies any chest discomfort at rest or with activity. No shortness of breath, palpitations, presyncope, syncope, PND, orthopnea or edema. Takes all meds as directed. He reports good activity tolerance. [facility] Medical History History of adenomatous polyp of colon Ascending aortic aneurysm Acute appendicitis Anxiety Obesity (BMI 30-39.9) Insomnia GERD without esophagitis Impacted cerumen, left ear Tubular adenoma of colon Vitamin D deficiency Dyslipidemia Essential hypertension Family history of coronary artery disease Surgical History S/P appendectomy History of colonoscopy with polypectomy Family History Mother Diabetes Heart problem CVA (cerebral vascular accident) Father Heart problem Social History Household Members: Spouse Housing: House Do you presently have visiting nurse or other home services: No Alcohol intake: current Alcohol intake frequency: holidays/special occasions only Patient Tobacco Use Status: Former Tobacco user Quit Date: >50 yr e-Cigarette/Vaping Use: Never Used Substance Use Type: Marijuana Advance Directives Date on File: 08/22/20 service: No Current occupational status: retired Cognitive needs: No Hearing needs: No Vision needs: Yes Review of Systems Const All systems reviewed & are unremarkable except as noted in HPI and below ENT Denies dizziness Card Denies chest pain, Denies chest pain at rest, Denies chest pain with activity, Denies rapid heart rate, Denies pedal edema, Denies edema, Denies leg edema, Denies lightheadedness, Denies palpitations, Denies dyspnea, Denies dyspnea on exertion and Denies orthopnea Resp Denies cough, Denies dyspnea and Denies dyspnea on exertion GI Denies hematochezia and Denies change in stool character Musc Denies abnormal gait, Denies limited range of motion, Denies muscle cramps, Denies muscle weakness, Denies numbness, Denies radiating pain into limb, Denies stiffness and Denies tingling Neuro Denies abnormal gait, Denies dizziness, Denies numbness and Denies tingling Endo Denies palpitations Physical Exam Vital Signs: Last Vital Signs Pulse 96 11/11/23 13:15 BP 120/82 11/11/23 13:15 BMI result Body Mass Index 35.1 Const General: cooperative, healthy appearing, comfortable and no acute distress Orientation/consciousness: patient oriented x3 Neck Neck: Yes normal visual inspection Resp Effort & Inspection: normal respiratory effort Auscultation: clear to auscultation bilaterally, no crackles, no rales, no rhonchi and no wheezes Cardio Jugular venous distension: no JVD Rate: regular rate Rhythm: regular rhythm Heart sounds: S1 normal heart sound present, S2 normal heart sound present, no murmurs and no rubs Neuro General: patient oriented x3 Extrem General: Yes normal to inspection, No no pedal edema and No calf tenderness Psych Appearance: grossly normal Mental Status: mental status grossly normal Speech and movement: Normal speech and movement present Assessment & Plan Assessment & Plan (1) Ascending aortic aneurysm: Code(s): I71.2 - Thoracic aortic aneurysm, without rupture Qualifiers: Presence of rupture: without rupture Qualified Code(s): I71.21 - Aneurysm of the ascending aorta, without rupture Plan: Known history of ascending aortic aneurysm being followed by echocardiogram. Prior echo done 11/2021 showed ascending aorta 4.4 cm. An echocardiogram was done on 11/08/2023 showing EF 58%, normal valves, ascending aorta 4.6 cm. At this time will update CTA of the chest to assess aortic size in detail. Will check BMP prior to CT scan. Blood pressure is well controlled. Continue on current lisinopril. Instructed to avoid heavy lifting, greater than 40 lb. Plan to call him with CTA results. Cardiology office visit in 1 year, sooner if needed (2) Hypertension: Code(s): I10 - Essential (primary) hypertension Qualifiers: Hypertension type: unspecified Qualified Code(s): I10 - Essential (primary) hypertension Plan: Well controlled at this time. No medication change made. Labs done 07/16/2023 showed potassium 4.1, creatinine 1.03. Continue lisinopril Plan Time spent on chart review, documentation, interview and assess Orders: Orders Basic Metabolic Panel Today I71.2 - Thoracic aortic aneurysm, without rupture CT angio chest aorta Today I71.2 - Thoracic aortic aneurysm, without rupture Coding Level of Care Code Est Pt Level 3 (29034) Diagnoses Aneurysm of ascending aorta without rupture I71.21 Presence of rupture: without rupture Hypertension, unspecified type I10 Hypertension type: unspecified Time Spent (min) 22
[2023-11-11 13:15] VITALS: BP 120/82; PULSE 96; BMI 35.1
== END 2023-11-11 13:47 | disposition home or self-care (01) ==
PROVIDERS: PCP Internal Medicine; Visit Provider Nurse Practitioner Family
DX: I71.21 Aneurysm of the ascending aorta, without rupture (principal); I10 Essential (primary) hypertension
CPT/HCPCS: 99213

== ENCOUNTER 2023-12-23 15:09 | Outpatient (REF) | payer OTHER, SELFPAY ==
--- NOTE | ~2023-12-23 | CT_ITS ---
EXAMINATION: CT ANGIOGRAM CHEST CLINICAL INFORMATION: Thoracic aortic aneurysm COMPARISON: CTA chest 06/20/2020 TECHNIQUE: Multiple axial images were obtained through the chest after the administration of 70 mL of intravenous Omnipaque. Images were evaluated on independent dedicated 3-D workstation and 3-D images were reconstructed with concurrent radiologist supervision and subsequently interpreted. This CT examination was performed using dose optimization techniques as appropriate, variously including the following: *Automated exposure control *Adjustment of mA and/or kV according to patient size (this includes techniques or standardized protocols for targeted exams where dose is matched to indication/reason for exam; i.e. extremities or head) *Use of iterative reconstruction technique DLP: 199 mGy-cm FINDINGS: VASCULAR FINDINGS: Heart: Normal in size. Coronary artery calcifications not present. Aorta: No aneurysm or dissection of the thoracic aorta. No penetrating atheromatous ulcer. Ascending Thoracic Aorta (largest diameter): 47 x 43 mm (previously 45 x 42 mm) Aortic Arch: 29 mm (previously 30 mm) Proximal descending Thoracic Aorta (at level of main PA): 28 x 27 mm (previously 28 x 27 mm) NONVASCULAR FINDINGS: Thyroid Gland: The visualized thyroid gland is normal. Lymph Nodes: No supraclavicular, axillary, mediastinal or hilar lymphadenopathy is identified. Airways: The trachea and central bronchi are normal. Lungs: No airspace consolidation. No suspicious nodules or masses. Pleura: No pleural effusion. No pneumothorax. Upper Abdomen: Left hepatic cyst 1 cm. Soft Tissues/Musculoskeletal: No acute fracture or focal osseous lesion. CT/CT angio chest aorta IMPRESSION: Measured at the same level, minimal interval increase in size of ascending aortic aneurysm, now measuring 47 x 43 mm (previously 45 x 42 mm). Fleischner guidelines were followed.
[2023-12-23] MEDS: iohexoL 350 MG/ML 75 ML INFUS..BTL 70 ML IV (15:50)
[2023-12-24 08:22] LABS: Creatinine POC 0.7 mg/dL (0.5-1.4); GFR POC > 60
== END 2023-12-23 15:10 | disposition home or self-care (01) ==
LOC: HO.CT 15:09
PROVIDERS: PCP Internal Medicine; Visit Provider Nurse Practitioner Family
DX: I71.20 Thoracic aortic aneurysm, without rupture, unspecified (principal)
CPT/HCPCS: 71275; 82565; Q9967

== ENCOUNTER 2024-02-12 06:35 | Outpatient (REF) | payer OTHER, SELFPAY ==
[2024-02-12 06:45] LABS: MANUAL DIFF FLAG NO
[2024-02-12 08:28] LABS: Appearance Urine Clear; Basophils Absolute Auto 0.1 X10*3/uL (0.0-0.2); Basophils Percent Auto 1.2 % (0-2); Color Urine Yellow; Eosinophils Absolute Auto 0.2 X10*3/uL (0.0-0.4); Eosinophils Percent Auto 2.4 % (0-4); Glucose Urine UA Negative (Negative); Hematocrit 45.6 % (42.0-52.0); Imm Gran Abs Auto 0.01 X10*3/uL (0.00-0.03); Imm Gran Pct Auto 0.1 % (0.0-0.4); Leukocyte Esterase Urine Trace (Negative); Lymphocytes Absolute Auto 2.1 X10*3/uL (1.2-4.9); Lymphocytes Percent Auto 30.3 % (20-40); Mean Corpuscular HGB Conc 32.9 g/dl (31.0-36.0); Mean Corpuscular Hemoglobin 30.9 pg (27.0-33.0); Mean Corpuscular Volume 93.8 fL (80.0-98.0); Mean Platelet Volume 9.9 fL (9.4-12.4); Monocytes Absolute Auto 0.9 X10*3/uL (0.1-1.2); Monocytes Percent Auto 12.9 % (2-11); Neutrophils Absolute Auto 3.6 x10*3/uL (2.0-8.3); Neutrophils Percent Auto 53.1 % (45-73); Nitrite Urine Negative (Negative); PH 5.5 (5.0-9.0); Platelet Count 263 X10*3/uL (160-400); Red Blood Count 4.86 X10*6/uL (4.60-5.80); Red Cell Distribution Width 13.7 % (11.0-16.0); UMIC TRIGGER UACC YES; Urine Blood Trace (Negative); Urine Ketones Trace mg/dL (Negative); Urine Protein Negative (Neg-Trace); White Blood Count 6.8 X10*3/uL (4.8-10.8)
[2024-02-12 08:34] LABS: Bacteria Urine None Seen (None Seen); Hyaline Casts Urine 0-2 /LPF (0-2); RBC Urine 0-2 /HPF (0-2); Squamous Epithelial Cell Urine 0-2 /HPF (0-2); WBC Urine 0-5 /HPF (0-5)
[2024-02-12 09:14] LABS: Alanine Aminotransferase 26 U/L (0-40); Albumin Level 4.6 g/dL (3.5-5.0); Alkaline Phosphatase 72 U/L (39-117); Anion Gap 13 (12-20); Aspartate Amino Transferase 19 U/L (5-37); Bilirubin Total 0.4 mg/dL (0.0-1.0); Blood Urea Nitrogen 17 mg/dL (9-16); Calcium 9.9 mg/dL (8.4-10.2); Carbon Dioxide 29 mmol/L (22-29); Chloride 99 mmol/L (96-108); Cholesterol 224 mg/dL (<200); Estimated Glomerular Filt Rate > 60; Glucose Fasting 102 mg/dL (60-99); HDL Cholesterol 43 mg/dL (>40); LDL Cholesterol Calculated 156 mg/dL (<100); Potassium 4.2 mmol/L (3.3-5.1); Sodium 137 mmol/L (135-145); TSH reflex Free T4 3.34 uIU/mL (0.32-4.0); Total Protein 8.1 g/dL (6.5-8.0); Triglycerides 128 mg/dL (<150); Vitamin D 25-OH Total 32.7 ng/mL (>30)
[2024-02-12 09:18] LABS: Prostate Specific Antigen 1.55 ng/mL (<0.05-4.0)
[2024-02-17 01:08] LABS: Testosterone, Total 295 ng/dL (250-1100)
== END 2024-02-12 06:36 | disposition home or self-care (01) ==
LOC: HO.LAB 06:35
PROVIDERS: Urology; PCP Internal Medicine; Visit Provider Internal Medicine
DX: I10 Essential (primary) hypertension (principal); E78.00 Pure hypercholesterolemia, unspecified; E55.9 Vitamin D deficiency, unspecified; E29.1 Testicular hypofunction; Z12.5 Encounter for screening for malignant neoplasm of prostate; R30.0 Dysuria
CPT/HCPCS: 36415; 80053; 80061; 81001; 82306; 84153; 84403; 84443; 85025

== ENCOUNTER 2024-02-20 11:39 | Outpatient (AMB) | payer OTHER, MEDICAID, SELFPAY ==
--- NOTE | 2024-02-20 11:40 | MHC.OFFVIS ---
Intake Visit Reasons: 6M PSA/Testo(set)Confirmed Intake Note: Patient is Present for Telephone Follow Up For Urology Med: Tadalafil Antibiotic Allergy:none Blood Thinner:none Allergies No Known Allergies Allergy (Verified 02/20/24 11:41) Medication List - Last Reconciled 02/20/24 by Mukesh Campbell MD escitalopram oxalate 10 mg PO DAILY lisinopril 30 mg PO DAILY tadalafil 5 mg PO DAILY 90 days HPI Comments Details: Tank is a pleasant male. He is a patient of Dr. Elliott. He is seen for the following urologic conditions - Peyronies disease - erectile dysfunction - borderline low testosterone Six-month follow-up. Continued ongoing care as part of a longitudinal relationship for complex condition related to hypogonadism Telemedicine Evaluation 15 min Consultation DoxUro Jock Maxine Video Continue 5 mg daily tadalafil Will add on demand sildenafil Discussed minimal cardiac issues 6 month follow-up Low testosterone Good response to clomiphene 50 mg q.o.d. Labs - 07/12 T 620 LH 3.1, 01/10 783 P1.4 Clomid stopped January 10 Erectile dysfunction Responded well to combination tadalafil and pentoxifylline PSA 02/11 1.5 Peyronie's disease Previously response to pentoxifylline Primary complaint is - penile curvature The problem has been present - since March 2021 At this time he experiences - partial erections sufficient for penetrative intercourse [place] has - can be achieved however is uncomfortable On exam has thickening of dorsal left Associated symptoms include penile pain No penile discharge No Prior management includes - Associated conditions history of penile trauma No CAD No - does have dyslipidemia diabetes No erectile dysfunction No hypertension yes peripheral vascular disease No Investigations - 11/11 T 165, 05/11 230 LH 1.3 Therapeutic plan continue conservative therapy PFSH Medical History History of adenomatous polyp of colon Ascending aortic aneurysm Acute appendicitis Anxiety Obesity (BMI 30-39.9) Insomnia GERD without esophagitis Impacted cerumen, left ear Tubular adenoma of colon Vitamin D deficiency Dyslipidemia Essential hypertension Family history of coronary artery disease Surgical History S/P appendectomy History of colonoscopy with polypectomy Family History Mother Diabetes Heart problem CVA (cerebral vascular accident) Father Heart problem Social History Household Members: Spouse Housing: House Do you presently have visiting nurse or other home services: No Alcohol intake: current Alcohol intake frequency: holidays/special occasions only Patient Tobacco Use Status: Former Tobacco user Quit Date: >50 yr e-Cigarette/Vaping Use: Never Used Substance Use Type: Marijuana Advance Directives Date on File: 08/22/20 service: No Current occupational status: retired Cognitive needs: No Hearing needs: No Vision needs: Yes Review of Systems Const All systems reviewed & are unremarkable except as noted in HPI and below Reports no additional complaints Resp Reports no additional complaints GI Reports no additional complaints Reports as per HPI Musc Reports no additional complaints Physical Exam Telemedicine evaluation Appropriate responses Regular breathing rate and rhythm HEENT Head: Yes normal to inspection Ears: hearing grossly normal bilaterally Eyes General: appearance normal, both eyes and all related structures Neck Neck: Yes normal visual inspection Chest Chest palpation & inspection: normal inspection of the chest Resp Effort & Inspection: normal respiratory effort and able to speak in complete sentences Telehealth Telehealth Telehealth Platform: [employer] Location of provider rendering services: practice address Location of patient: address on file Patient Identification confirmed using: Name, : Yes Telehealth method: video Patient verbally consented to treatment: Yes Patient verbally consented to billing insurance company: Yes Patient informed of any privacy concerns related to visit: Yes Minutes spent on Phone/Video with Pt.: 15 Assessment & Plan Assessment & Plan (1) Hypogonadism in male: Code(s): E29.1 - Testicular hypofunction Category: Medical (2) Erectile dysfunction due to arterial insufficiency: Code(s): N52.01 - Erectile dysfunction due to arterial insufficiency Category: Medical Plan Six-month follow-up Catarina Orders: Orders Prostate Specific Antigen 02/12/24 Z12.5 - Encounter for screening for malignant neoplasm of prostate Medications: New sildenafil administer 60 minutes before intended activity 100 mg PO ONCE 30 days PRN 30 tabs 1RF sexual activity N52.01 - Erectile dysfunction due to arterial insufficiency Refilled tadalafil 5 mg PO DAILY 90 days 90 tabs 1RF sexual activity N48.6 - Induration penis plastica, N52.01 - Erectile dysfunction due to arterial insufficiency Patient Instructions: Imaging studies, laboratory and physical exam results were discussed and reviewed in detail. No major barriers to patient understanding were identified. An opportunity to ask questions regarding the treatment plan was provided. All questions were answered. The patient expressed understanding and agreement with the above treatment plan. The patient is aware they should contact our office by phone for worsening of their current condition or the appearance of new urologic symptoms. Compliance is encouraged with any medications and followup testing that is ordered. It is a privilege to participate in the urologic care of your patient. If you have any questions or concerns regarding treatment for the above conditions, or other urologic issues, please do not hesitate to contact me. The office telephone contact is [phone]. This note is constructed using voice recognition software. While every effort has been made to ensure accuracy ammunition specialist errors may have been included. Yours sincerely, Dr Mukesh Campbell MD, [facility] - Urology Providers of Expert, Compassionate Care for the Genitourinary System Coding Level of Care Code Tele Est Pt Level 4 (50636) Complex EM visit Add On G2211 Diagnoses Hypogonadism in male E29.1 Erectile dysfunction due to arterial insufficiency N52.01
== END 2024-02-20 12:23 | disposition home or self-care (01) ==
LOC: HO.HUSH 11:39
PROVIDERS: PCP Internal Medicine; Visit Provider Urology
DX: E29.1 Testicular hypofunction (principal); N52.01 Erectile dysfunction due to arterial insufficiency
CPT/HCPCS: 99214; G2211

== ENCOUNTER → 2024-02-20 11:39 | Outpatient (BNVA) | payer OTHER, SELFPAY | PROVIDERS: PCP Internal Medicine; Visit Provider Urology | DX: Z12.5 Encounter for screening for malignant neoplasm of prostate (principal) ==

== ENCOUNTER 2024-03-02 09:11 | Outpatient (AMB) | payer OTHER, SELFPAY ==
[2024-03-02 09:15] VITALS: BP 142/90; PULSE 87; O2SAT 95; BMI 35.7
--- NOTE | 2024-03-02 09:15 | A.OFFPC_ITS ---
Vital Signs 03/02/24 09:15 Height 5 ft 10 in Weight 249 lb BMI 35.7 BP 142/90 H Blood Pressure Location Lt brachial Position Sitting Pulse 87 Pulse Source Pulse Oximeter Pulse Oximetry (%) 95 Oxygen Delivery Method Room Air Intake Visit Reasons: HTN, hyperlipidemia, GERD Gas Appliance Servicer Helper Required: No Waterproofer Helper: Not Required per policy Accompanied by: Self / Same As Patient Allergies No Known Allergies Allergy (Verified 03/02/24 09:39) Medication List - Last Reconciled 03/02/24 by Oziel Elliott MD escitalopram oxalate 10 mg PO DAILY lisinopril 30 mg PO DAILY sildenafil 100 mg PO ONCE PRN 30 days tadalafil 5 mg PO DAILY 90 days Tobacco use date assessed: 10/30/23 Fall risk assessment: No Falls in past year Last assessed Fall Risk: 03/02/24 Dental Screening Dental Screen Date: 10/30/23 HPI HTN, hyperlipidemia, GERD HPI Details Patient comes in today for his follow up visit States that he feels okay He denies any headaches or dizziness Denies any chest pains, no SOB No nausea/vomiting, no abdominal pain No change in bowel habits noted Needs his Lisinopril Rx refilled Had his follow up labs done a few weeks ago - to discuss his results [facility] Medical History History of adenomatous polyp of colon Ascending aortic aneurysm Acute appendicitis Anxiety Obesity (BMI 30-39.9) Insomnia GERD without esophagitis Impacted cerumen, left ear Tubular adenoma of colon Vitamin D deficiency Dyslipidemia Essential hypertension Family history of coronary artery disease Surgical History S/P appendectomy History of colonoscopy with polypectomy Family History Mother Diabetes Heart problem CVA (cerebral vascular accident) Father Heart problem Social History Household Members: Spouse Housing: House Do you presently have visiting nurse or other home services: No Alcohol intake: current Alcohol intake frequency: holidays/special occasions only Patient Tobacco Use Status: Former Tobacco user Quit Date: >50 yr e-Cigarette/Vaping Use: Never Used Substance Use Type: Marijuana Advance Directives Date on File: 08/22/20 service: No Current occupational status: retired Cognitive needs: No Hearing needs: No Vision needs: Yes (glasses) Questionnaire Thrive Questionnaire Date Thrive assessed: 10/30/23 VICK-7 AMB Questionnaire VICK-7 Date VICK - 7 assessed: 10/30/23 Source: Developed by Drs. Mau Huddleston, Mayra Wiseman, Roge Fink and colleagues, with an educational karen from [employer]. Review of Systems Const Denies chills, Denies fatigue, Denies fever(s) and Denies headache(s) ENT Denies dysphagia, Denies dizziness, Denies otalgia, Denies headache(s), Denies neck pain, Denies odynophagia and Denies sore throat Card Denies chest pain, Denies rapid heart rate, Denies irregular heart rhythm, Denies palpitations and Denies dyspnea Resp Denies chest congestion, Denies cough, Denies dyspnea and Denies wheezing GI Denies abdominal pain, Denies constipation, Denies dysphagia, Denies heartburn, Denies diarrhea, Denies nausea, Denies odynophagia and Denies vomiting Denies difficulty urinating, Denies dysuria and Denies urinary frequency Musc Denies back pain, Denies arthralgias, Denies joint swelling and Denies neck pain Skin/Breast Denies rash Neuro Denies dizziness, Denies headache(s) and Denies paresthesias Endo Denies fatigue and Denies palpitations Aller/Immun Denies wheezing Physical exam (Primary Care) Vital Signs: Last Vital Signs Pulse 87 03/02/24 09:15 BP 142/90 H 03/02/24 09:15 Pulse Ox 95 03/02/24 09:15 Oxygen Delivery Method Room Air 03/02/24 09:15 BMI result Body Mass Index 35.7 Tobacco/Smoking Status: Tobacco use Status Tobacco use date assessed 10/30/23 03/02/24 09:16 Patient Tobacco Use Status Former Tobacco user 03/02/24 09:16 e-Cigarette/Vaping Use Never Used 03/02/24 09:16 Thrive Assessment: Date of Thrive Assessment Date Thrive assessed 10/30/23 03/02/24 09:16 Const General: no acute distress and alert HENMT Ears: TM's normal bilaterally and EAC's normal Throat: Yes posterior oropharynx normal and Yes tonsils normal (no TP congestion) Neck Neck: Yes no lymphadenopathy and Yes supple Thyroid: Thyroid normal Resp Auscultation: clear to auscultation bilaterally, no rales and no wheezes Cardio Rate: regular rate Rhythm: regular rhythm Heart sounds: no murmurs GI Palpation (GI): Soft to palpation and nontender Auscultation: normal bowel sounds General: Yes no CVA tenderness Back/Spine/Pelvis Back: no CVA tenderness Skin Rashes: no rashes Extrem General: Yes no clubbing, cyanosis or edema Results Reviewed Results Reviewed: Laboratory Tests 02/12/24 06:44 WBC 6.8 Hgb 15.0 Hct 45.6 Plt Count 263 Sodium 137 Potassium 4.2 Creatinine 1.19 Estimated GFR > 60 Fasting Glucose 102 H Calcium 9.9 AST 19 ALT 26 Triglycerides 128 Cholesterol 224 H LDL Cholesterol, Calc 156 H HDL Cholesterol 43 Prostate Specific Ag 1.55 25-OH Vitamin D Total 32.7 TSH 3.34 Total Testosterone 295 Ur Specific [place] 1.020 Urine Protein Negative Urine Glucose (UA) Negative Urine Blood Trace H Urine Nitrite Negative Ur Leukocyte Esterase Trace H Assessment and Plan Assessment & Plan (1) Essential hypertension: Code(s): I10 - Essential (primary) hypertension Plan: Reinforced low sodium diet - goal is systolic BP of 120 mm or less Continue Lisinopril 30 mg QD (2) Dyslipidemia: Comment: no meds, being watched Code(s): E78.5 - Hyperlipidemia, unspecified Plan: Results of his labs done a few weeks ago reviewed and discussed with patient - he is cautioned that his cholesterol levels have increased significantly from previous Reinforced low cholesterol diet Will recheck his labs and fasting lipids in 4 months for follow up - he is advised that if he cannot get his numbers controlled better over the next few months, then we will need to consider starting him on some Rx to help get his cholesterol numbers controlled better (3) GERD without esophagitis: Code(s): K21.9 - Gastro-esophageal reflux disease without esophagitis Plan: Dietary restrictions reinforced Patient takes his Omeprazole only as needed when his symptoms flare up (4) Vitamin D deficiency: Code(s): E55.9 - Vitamin D deficiency, unspecified Plan: Corrected on his previous labs Will recheck Vitamin D level in 4 months for follow up (5) Ascending aortic aneurysm: Code(s): I71.2 - Thoracic aortic aneurysm, without rupture Qualifiers: Presence of rupture: without rupture Qualified Code(s): I71.21 - Aneurysm of the ascending aorta, without rupture Plan: Chest CTA done on 06/20/2021 showed an ascending thoracic aortic aneurysm with the maximum diameter measuring 4.0 x 4.5 cm Echocardiogram done in 11/2021 revealed normal LV systolic function with grade 1 diastolic dysfunction, trivial aortic regurgitation, dilated ascending aorta at 4.4 cm that is unchanged from before, normal RV systolic pressure?and no pericardial effusion Echocardiogram done in September 2022 revealed no changes - ascending aorta is again mildly dilated at 4.3 cm Repeat echocardiogram done on 11/08/2023 revealed that the left ventricular systolic function is normal and the calculated ejection fraction is 58% by biplane method. There is no obvious valvular pathology seen on this study. There is moderate dilatation of the ascending aorta measuring 4.60 cm, which has increased slightly from last year Emphasized again strict BP control to keep his aneurysm from progressing Follow up with cardiology as scheduled for continuing surveillance (6) Hepatic cyst: Code(s): K76.89 - Other specified diseases of liver Plan: Hepatic US done in 12/2020 revealed a 1.5 cm hepatic cyst - confirmed on CTA done in 05/2021 Abdominal US done in July 2022 revealed again the small hepatic cyst seen previously on US and CT with no changes Will continue to monitor with US regularly (7) Peyronie's disease: Code(s): N48.6 - Induration penis plastica Plan: Follow up with urology as scheduled (8) Erectile dysfunction due to arterial insufficiency: Code(s): N52.01 - Erectile dysfunction due to arterial insufficiency Plan: Continue Tadalafil 5 mg QD; was previously also on Pentoxifylline ER 400 mg BID but this appears to have been discontinued recently Follow up with urology as scheduled (9) Insomnia: Code(s): G47.00 - Insomnia, unspecified Qualifiers: Insomnia type: unspecified Qualified Code(s): G47.00 - Insomnia, unspecified Plan: Sleep hygiene reinforced Has not needed to take his Trazodone lately; states that he did not really take it much or often when he was started on it last year (10) Anxiety: Code(s): F41.9 - Anxiety disorder, unspecified Plan: Continue Escitalopram 10 mg QD (11) Obesity (BMI 30-39.9): Code(s): E66.9 - Obesity, unspecified Plan: Reinforced diet/exercise as tolerated/lose weight Plan Follow up in 4 months Orders: Orders Lipid Panel 4 Months E78.00 - Pure hypercholesterolemia, unspecified Comprehensive [place]. Panel Fast 4 Months E78.00 - Pure hypercholesterolemia, unspecified TSH reflex Free T4 4 Months E78.00 - Pure hypercholesterolemia, unspecified UA CC w/rflx Micro + Cult 4 Months R30.0 - Dysuria Hemoglobin A1c 4 Months R73.01 - Impaired fasting glucose Complete Blood Count Auto Diff 4 Months D64.9 - Anemia, unspecified Vitamin D 25-OH Total 4 Months E55.9 - Vitamin D deficiency, unspecified Medications: Refilled lisinopril 30 mg PO DAILY 90 tabs 1RF Coding Level of Care Code Est Pt Level 4 (52060) Diagnoses Essential hypertension I10 Dyslipidemia E78.5 GERD without esophagitis K21.9 Vitamin D deficiency E55.9 Aneurysm of ascending aorta without rupture I71.21 Presence of rupture: without rupture Hepatic cyst K76.89 Peyronie's disease N48.6 Erectile dysfunction due to arterial insufficiency N52.01 Insomnia, unspecified type G47.00 Insomnia type: unspecified Anxiety F41.9 Obesity (BMI 30-39.9) E66.9
== END 2024-03-02 09:59 | disposition home or self-care (01) ==
PROVIDERS: PCP Internal Medicine; Visit Provider Internal Medicine
DX: I10 Essential (primary) hypertension (principal); I71.21 Aneurysm of the ascending aorta, without rupture; E78.5 Hyperlipidemia, unspecified; K21.9 Gastro-esophageal reflux disease without esophagitis; E55.9 Vitamin D deficiency, unspecified; E66.9 Obesity, unspecified; K76.89 Other specified diseases of liver; N48.6 Induration penis plastica; N52.01 Erectile dysfunction due to arterial insufficiency; G47.00 Insomnia, unspecified; F41.9 Anxiety disorder, unspecified
CPT/HCPCS: 99214

== ENCOUNTER → 2024-07-02 07:43 | Outpatient (REF) | payer OTHER, SELFPAY ==
--- NOTE | 2024-07-02 07:45 | CA_ITS ---
Transthoracic Echocardiogram Patient (Last, First, Middle): Tank Ledezma, Gender: Male Date of : 1960 Age: 63 Procedure Date: 07/02/2024 Procedure Type: Transthoracic Echocardiogram Location: OP Height: 177. cm Weight: 107.05 kg BSA: 2.23 m2 Heart Rate: 74 bpm BP: 110 / 75 mmHg [employer] Teacher: HEATHER Turner MD: Jagruti Camilo INFECTIOUS DISEASES PHYSICIAN-Euf[employer] Investigator Utility Bill Complaints: Leobardo Shah MD Symptoms: I71.21 - Aneurysm of the ascending aorta, without rupture Study Quality: Adequate w/Contrast ECG Rhythm: Sinus Conclusions: - 1. Normal LV ejection fraction of 60-65% with impaired relaxation filling pattern 2. Normal cardiac valvular Doppler 3. Moderately dilated ascending aorta at 4.5 cm 4. Normal RV systolic pressure 5. No gross pericardial effusion Findings Procedure Information Contrast agent, definity, is being given per protocol without apparent complications. Left Ventricle Normal left ventricular size, thickness, and systolic function. The visually estimated ejection fraction is between 60-65%. Spectral Doppler is indicative of an impaired relaxation filling pattern. E/E prime ratio is between 8 and 15 consistent with indeterminate filling pressures. Right Ventricle Normal right ventricular cavity size and systolic function. Atria Both atria are normal in size. There is lipomatous hypertrophy of the interatrial septum. There is no evidence of interatrial shunt. Aortic Valve Normal aortic valve structure and function. There is no aortic valve stenosis. There is no aortic valve regurgitation. Mitral Valve Normal mitral valve structure and function. There is trace mitral valve regurgitation. There is no mitral valve stenosis. Pulmonic Valve The pulmonic valve was not well visualized. There is trace pulmonic valve regurgitation. Tricuspid Valve Normal tricuspid valve structure. There is trace tricuspid valve regurgitation. The right ventricular systolic pressure is normal. The right ventricular systolic pressure is 23 mmHg. Normal right atrial pressure. There is no evidence of pulmonary hypertension. Great Vessels The pulmonary artery was not well visualized. There is moderate dilatation of the ascending aorta measuring 4.50 cm. Venous The inferior vena cava is normal in size and collapses greater than 50% with inspiration. Pericardium/Pleural There is no evidence of pericardial effusion. Prior Study Comparison No significant change compared to prior study dated: 11/08/2023. Measurements 2D Linear Measurements IVSd: 1.02 0.6-0.9/0.6-1.0 cm LVIDd: 4.19 3.9-5.3/4.2-5.9 cm LVIDd Index: 1.88 2.4-3.2/2.2-3.1 cm/m2 LVIDs: 2.90 2.0-3.6 cm LVPWd: 1.07 0.7-1.1 cm LA Diam: 2.70 2.7-3.8/3.0-4.0 cm LAIDs Index: 1.21 1.5-2.3 cm/m2 LV Mass: 181.08 67-162/88-224 g LV Mass Index: 81.20 43-95/49-115 g/m2 LVOT Diam: 1.90 3.0+(-)1.3 cm 2D Systolic Function EF 4C: 56.90 >55% EF 2C: 63.20 >55% EF BiP: 60.50 >55% Mitral Valve MV Pk E: 0.60 MV PK A: 0.67 MV Decel Time: 248.00 E/A: 0.90 E'Lateral: 9.36 E'Medial: 5.98 E/E' Med: 10.00 E/E' Lat: 6.40 PHT: 73.00 MVA PHT: 3.01 Decel S[place]y: 2.42 Aortic Valve AoV Pk Liam: 1.24 AoV Mn Liam: 0.84 AoV VTI: 0.24 AoV Pk Grad: 6.00 Aov Mn Grad: 4.00 MADDY Cont.VTI: 2.57 LVOT LVOT Pk Liam: 1.09 LVOT Mn Liam: 0.76 LVOT VTI: 0.22 LVOT Pk Grad: 5.00 LVOT Mn Grad: 3.00 LVOT Diam: 1.90 LVOT Area: 2.84 Diastolic Function MV Pk E: 0.60 MV Pk A: 0.67 E/A: 0.90 E'Medial: 5.98 E/E' Med: 10.00 E' Laterial: 9.36 E/E' Lat: 6.40 Right Ventricle TAPSE (mm): 18.00 TVS' Liam: 9.90 Tricuspid Valve TR Pk Liam: 2.22 TR Pk Grad: 20.00 RA Press: 3.00 RVSP: 23.00 Great Vessels Aorta Sinus of Valsalva: 3.90 2.0-3.5 cm Ao Asc: 4.50 2.1-3.4 cm Ao Arch: 4.40 Pulmonary Valve PV Pk Liam: 0.87 Peak PV Grad: 3.00 Updated in Other Vendor System with Status of Final Leobardo Shah MD electronically signed on 07/02/2024 12:37:29 PM with status of Final
== END ==
LOC: HO.CARD 07:43
PROVIDERS: PCP Internal Medicine; Visit Provider Nurse Practitioner Family
DX: I71.21 Aneurysm of the ascending aorta, without rupture (principal)
CPT/HCPCS: 93306; Q9957

== ENCOUNTER → 2024-07-02 07:45 | Outpatient (BNV) | payer OTHER, SELFPAY | PROVIDERS: PCP Internal Medicine; Visit Provider Internal Medicine Cardiovascular Disease | DX: I71.21 Aneurysm of the ascending aorta, without rupture (principal); R93.1 Abnormal findings on diagnostic imaging of heart and coronary circulation | CPT/HCPCS: 93306 ==

== ENCOUNTER 2024-07-17 08:58 | Outpatient (AMB) | payer OTHER, SELFPAY ==
[2024-07-17 08:59] VITALS: BP 124/80; PULSE 83; O2SAT 96; BMI 34.9
--- NOTE | 2024-07-17 08:59 | A.OFFPC_ITS ---
Vital Signs 07/17/24 08:59 Height 5 ft 10 in Weight 243 lb 8 oz BMI 34.9 BP 124/80 Blood Pressure Location Lt brachial Position Sitting Pulse 83 Pulse Source Pulse Oximeter Pulse Oximetry (%) 96 Oxygen Delivery Method Room Air Intake Visit Reasons: Annual Exam Shoder Filler Required: No Accompanied by: Self / Same As Patient Allergies No Known Allergies Allergy (Verified 07/17/24 09:13) Medication List - Last Reconciled 07/17/24 by Oziel Elliott MD escitalopram oxalate 10 mg PO DAILY lisinopril 30 mg PO DAILY sildenafil 100 mg PO ONCE PRN 30 days tadalafil 5 mg PO DAILY 90 days Tobacco use date assessed: 07/17/24 Fall risk assessment: No Falls in past year Last assessed Fall Risk: 07/17/24 Dental Screening Dental Screen Date: 07/17/24 Did you have a dental visit in the last 12 months?: No Did you have a dental problem in the last 6 months where you did not have access to dental care?: No Was dental information given to patient?: No HPI Annual Exam HPI Details Patient comes in today for his annual physical examination States that he feels okay He denies any headaches or dizziness Denies any chest pains, no SOB No nausea/vomiting, no abdominal pain No change in bowel habits noted Denies any acute urinary symptoms He was not able to get his follow up labs done prior to his visit today He last had his screening colonoscopy done in 04/2022 - was recommended for repeat colonoscopy in 5 years (2026) due to tubular adenoma of the colon [facility] Medical History History of adenomatous polyp of colon Ascending aortic aneurysm Acute appendicitis Anxiety Obesity (BMI 30-39.9) Insomnia GERD without esophagitis Impacted cerumen, left ear Tubular adenoma of colon Vitamin D deficiency Dyslipidemia Essential hypertension Family history of coronary artery disease Surgical History S/P appendectomy History of colonoscopy with polypectomy Family History Mother Diabetes Heart problem CVA (cerebral vascular accident) Father Heart problem Social History Household Members: Spouse Housing: House Do you presently have visiting nurse or other home services: No Alcohol intake: current Alcohol intake frequency: holidays/special occasions only Patient Tobacco Use Status: Former Tobacco user e-Cigarette/Vaping Use: Never Used Substance Use Type: Marijuana Advance Directives Date on File: 08/22/20 service: No Current occupational status: retired Cognitive needs: No Hearing needs: No Vision needs: Yes (glasses) Questionnaire PHQ-9 Over the last 2 weeks, how often have you been bothered by any of the following problems? 1. Little interest or pleasure in doing things: not at all 2. Feeling down, depressed, or hopeless: not at all 3. Trouble falling or staying asleep, or sleeping too much: not at all 4. Feeling tired or having little energy: not at all 5. Poor appetite or overeating: not at all 6. Feeling bad about yourself - or that you are a failure or have let yourself or your family down: not at all 7. Trouble concentrating on things, such as reading the newspaper or watching television: not at all 8. Moving or speaking so slowly that other people could have noticed. Or the opposite - being so fidgety or restless that you have been moving around a lot more than usual: not at all 9. Thoughts that you would be better off or of hurting yourself in some way: not at all Total score: 0 Depression Screening Interpretation: Negative Depression Screening Done: Yes 71389 - PHQ-9 Billing: Yes Source: Developed by Drs. Mau Huddleston, Mayra Wiseman, Roge Fink and colleagues, with an educational karen from [employer]. Thrive Questionnaire Date Thrive assessed: 07/17/24 I am a: Patient What is your living situation today?: I have a steady place to live Within the past 12 months, did the food you bought not last and you didn't have the money to get more?: Never true Within the past 12 months, did you worry whether your food would run out before you got money to buy more?: Never true Do you have trouble paying for medicines?: No Do you have trouble getting transportation to medical appointments?: No Do you have trouble paying your heating and electricity bill?: No Do you have trouble taking care of your child, family member or friend?: No Do you have trouble with day-to-day activities such as bathing, preparing meals, shopping, managing finances, etc.?: No Are you currently unemployed and looking for a job?: No Are you interested in more education?: No Please select the resources that you would like help with: None Currently or been in a relationship where the following occur: No concerns reported THRIVE Score: 0 AUDIT C Alcohol Use Questionnaire (AUDIT-C) 1. How often do you have a drink containing alcohol?: 2-4 times a month 2. How many drinks containing alcohol do you have on a typical day when you are drinking?: 1 or 2 3. How often do you have six or more drinks on one occasion?: Never Total Score: 2 Score Reviewed/Action Taken: Yes VICK-7 AMB Questionnaire VICK-7 Date VICK - 7 assessed: 07/17/24 Feeling nervous, anxious, or on edge: 0 = Not at all Not being able to stop or control worryin = Not at all Worrying too much about different things: 0 = Not at all Trouble relaxin = Not at all Being so restless that it is hard to sit still: 0 = Not at all Becoming easily annoyed or irritable: 0 = Not at all Feeling afraid as if something awful might happen: 0 = Not at all Total VICK-7 score (0-4 normal; 5-9 mild; 10-14 moderate; 15-21 severe): 0 Source: Developed by Drs. Mau Huddleston, Mayra Wiseman, Roge Fink and colleagues, with an educational karen from [employer]. Review of Systems Const Denies chills, Denies fatigue, Denies fever(s), Denies headache(s), Denies malaise and Denies weakness Eyes Denies blurry vision, Denies change in vision, Denies irritation and Denies itchy eyes ENT Denies dysphagia, Denies dizziness, Denies otalgia, Denies headache(s), Denies nasal congestion, Denies neck pain, Denies odynophagia and Denies sore throat Card Denies chest pain, Denies rapid heart rate, Denies irregular heart rhythm, Denies palpitations and Denies dyspnea Resp Denies chest congestion, Denies cough, Denies dyspnea and Denies wheezing GI Denies abdominal pain, Denies bloating, Denies constipation, Denies dysphagia, Denies heartburn, Denies diarrhea, Denies nausea, Denies odynophagia and Denies vomiting Denies hematuria, Denies difficulty urinating, Denies dysuria, Denies urinary frequency and Denies urinary urgency Musc Denies back pain, Denies arthralgias, Denies joint swelling, Denies muscle weakness and Denies neck pain Skin/Breast Denies change in pigmentation, Denies lesions, Denies rash and Denies unusual bruising Neuro Denies dizziness, Denies headache(s), Denies paresthesias and Denies weakness Endo Denies fatigue and Denies palpitations Aller/Immun Denies itchy eyes and Denies wheezing Physical exam (Primary Care) Vital Signs: Last Vital Signs Pulse 83 07/17/24 08:59 BP 124/80 07/17/24 08:59 Pulse Ox 96 07/17/24 08:59 Oxygen Delivery Method Room Air 07/17/24 08:59 BMI result Body Mass Index 34.9 Tobacco/Smoking Status: Tobacco use Status Tobacco use date assessed 07/17/24 07/17/24 09:05 Patient Tobacco Use Status Former Tobacco user 07/17/24 09:05 e-Cigarette/Vaping Use Never Used 07/17/24 09:05 PHQ-9: PHQ-9 Score PHQ-9: Total score 0 07/17/24 09:05 Depression Screening Interpretation: Negative Thrive Assessment: Date of Thrive Assessment Date Thrive assessed 07/17/24 07/17/24 09:05 Currently or been in a relationship where the following occur: No concerns reported Const General: no acute distress, alert and awake Orientation/consciousness: patient oriented x3 HENMT Head: Yes normocephalic and Yes atraumatic Ears: external ears normal, TM's normal bilaterally and EAC's normal General nose exam: No nasal discharge present Face and sinus: Yes normal facial exam and Yes sinuses nontender Teeth and gingiva: dentition normal Throat: Yes posterior oropharynx normal and Yes tonsils normal (no TP congestion) Eyes Eyelids: Yes eyelids normal Conjunctivae: conjunctivae normal Pupils: Equal, round and reactive pupils present EOM: EOMs intact bilaterally Neck Neck: Yes no lymphadenopathy and Yes supple Thyroid: Thyroid normal Resp Auscultation: clear to auscultation bilaterally, no rales and no wheezes Cardio Rate: regular rate Rhythm: regular rhythm Heart sounds: no murmurs GI Palpation (GI): Soft to palpation, nontender and No hepatosplenomegaly present Auscultation: normal bowel sounds General: Yes no CVA tenderness Back/Spine/Pelvis Back: no CVA tenderness Thoracic/Lumbar Spine: thoracic and lumbar spine normal to inspection Skin Lesions: no lesions Rashes: no rashes Neuro General: patient oriented x3, moves all extremities, no focal motor deficits and CN's II-XI intact bilaterally Cranial nerves: Yes Equal, round and reactive pupils present Cognition (Neuro): normal cognition Gait exam (Neuro): Normal gait present Extrem General: Yes no clubbing, cyanosis or edema Assessment and Plan Assessment & Plan (1) Annual physical exam: Code(s): Z00.00 - Encounter for general adult medical examination without abnormal findings Plan: Patient is instructed to get his previously ordered labs done SHERRIE to complete his physical today He is up-to-date with his cancer screenings at this time His PSA was normal when last checked in January 2024 (2) Essential hypertension: Code(s): I10 - Essential (primary) hypertension Plan: Reinforced low sodium diet - goal is systolic BP of 120 mm or less Continue Lisinopril 30 mg QD (3) Dyslipidemia: Comment: no meds, being watched Code(s): E78.5 - Hyperlipidemia, unspecified Plan: Reinforced low cholesterol diet Will recheck his labs and fasting lipids in 4 months for follow up (4) GERD without esophagitis: Code(s): K21.9 - Gastro-esophageal reflux disease without esophagitis Plan: Dietary restrictions reinforced Patient takes his Omeprazole only as needed when his symptoms flare up (5) Vitamin D deficiency: Code(s): E55.9 - Vitamin D deficiency, unspecified Plan: Corrected on his previous labs Will recheck Vitamin D level in 4 months for follow up (6) Ascending aortic aneurysm: Code(s): I71.2 - Thoracic aortic aneurysm, without rupture Qualifiers: Presence of rupture: without rupture Qualified Code(s): I71.21 - Aneurysm of the ascending aorta, without rupture Plan: Chest CTA done on 06/20/2021 showed an ascending thoracic aortic aneurysm with the maximum diameter measuring 4.0 x 4.5 cm Echocardiogram done in 11/2021 revealed normal LV systolic function with grade 1 diastolic dysfunction, trivial aortic regurgitation, dilated ascending aorta at 4.4 cm that is unchanged from before, normal RV systolic pressure?and no pericardial effusion Echocardiogram done in September 2022 revealed no changes - ascending aorta is again mildly dilated at 4.3 cm Repeat echocardiogram done on 11/08/2023 revealed that the left ventricular systolic function is normal and the calculated ejection fraction is 58% by biplane method. There is no obvious valvular pathology seen on this study. There is moderate dilatation of the ascending aorta measuring 4.60 cm, which has increased slightly from last year He recently had another echocardiogram done a few weeks ago in June 2024 - echo showed normal LV ejection fraction of 60-65% with impaired relaxation filling pattern, normal cardiac valvular doppler, moderately dilated ascending aorta at 4.5 cm with normal RV systolic pressure Have emphasized again to patient strict BP control to keep his aneurysm from pro gressing Follow up with cardiology as scheduled for continuing surveillance (7) Hepatic cyst: Code(s): K76.89 - Other specified diseases of liver Plan: Hepatic US done in 12/2020 revealed a 1.5 cm hepatic cyst - confirmed on CTA done in 05/2021 Abdominal US done in July 2022 revealed again the small hepatic cyst seen previously on US and CT with no changes Will continue to monitor with US regularly - will recheck his abdominal US next year for follow up (8) Peyronie's disease: Code(s): N48.6 - Induration penis plastica Plan: Follow up with urology as scheduled (9) Erectile dysfunction due to arterial insufficiency: Code(s): N52.01 - Erectile dysfunction due to arterial insufficiency Plan: Continue Tadalafil 5 mg QD; was previously also on Pentoxifylline ER 400 mg BID but this appears to have been discontinued recently Follow up with urology as scheduled (10) Insomnia: Code(s): G47.00 - Insomnia, unspecified Qualifiers: Insomnia type: unspecified Qualified Code(s): G47.00 - Insomnia, unspecified Plan: Sleep hygiene reinforced Has not needed to take his Trazodone lately; states that he did not really take it much or often when he was started on it last year (11) Anxiety: Code(s): F41.9 - Anxiety disorder, unspecified Plan: Continue Escitalopram 10 mg QD (12) Obesity (BMI 30-39.9): Code(s): E66.9 - Obesity, unspecified Plan: Reinforced diet/exercise as tolerated/lose weight Plan Follow up in 4 months Orders: Orders Vitamin D 25-OH Total 4 Months E55.9 - Vitamin D deficiency, unspecified TSH reflex Free T4 4 Months E78.00 - Pure hypercholesterolemia, unspecified Hemoglobin A1c 4 Months R73.01 - Impaired fasting glucose Complete Blood Count Auto Diff 4 Months D64.9 - Anemia, unspecified Comprehensive [place]. Panel Fast 4 Months E78.00 - Pure hypercholesterolemia, unspecified Lipid Panel 4 Months E78.00 - Pure hypercholesterolemia, unspecified UA CC w/rflx Micro + Cult 4 Months R30.0 - Dysuria Coding Level of Care Code Est Pt Prev Care >65y(58188) Diagnoses Annual physical exam Z00.00 Essential hypertension I10 Dyslipidemia E78.5 GERD without esophagitis K21.9 Vitamin D deficiency E55.9 Aneurysm of ascending aorta without rupture I71.21 Presence of rupture: without rupture Hepatic cyst K76.89 Peyronie's disease N48.6 Erectile dysfunction due to arterial insufficiency N52.01 Insomnia, unspecified type G47.00 Insomnia type: unspecified Anxiety F41.9 Obesity (BMI 30-39.9) E66.9
== END 2024-07-17 09:39 | disposition home or self-care (01) ==
PROVIDERS: PCP Internal Medicine; Visit Provider Internal Medicine
DX: Z00.00 Encounter for general adult medical examination without abnormal findings (principal); I71.21 Aneurysm of the ascending aorta, without rupture; I10 Essential (primary) hypertension; Z68.34 Body mass index [BMI] 34.0-34.9, adult; E66.9 Obesity, unspecified; E78.5 Hyperlipidemia, unspecified; K21.9 Gastro-esophageal reflux disease without esophagitis; E55.9 Vitamin D deficiency, unspecified; K76.89 Other specified diseases of liver; N48.6 Induration penis plastica; N52.01 Erectile dysfunction due to arterial insufficiency; G47.00 Insomnia, unspecified

== ENCOUNTER 2024-07-17 08:58 | Outpatient (REF) | payer OTHER, SELFPAY ==
[2024-07-17 10:02] LABS: MANUAL DIFF FLAG NO
[2024-07-17 10:21] LABS: Basophils Absolute Auto 0.1 X10*3/uL (0.0-0.2); Eosinophils Absolute Auto 0.1 X10*3/uL (0.0-0.4); Eosinophils Percent Auto 1.8 % (0-4); Hematocrit 43.7 % (42.0-52.0); Hemoglobin 14.4 g/dl (14.0-18.0); Imm Gran Abs Auto 0.01 X10*3/uL (0.00-0.03); Imm Gran Pct Auto 0.2 % (0.0-0.4); Lymphocytes Absolute Auto 1.5 X10*3/uL (1.2-4.9); Lymphocytes Percent Auto 25.3 % (20-40); Mean Corpuscular Hemoglobin 31.4 pg (27.0-33.0); Mean Corpuscular Volume 95.2 fL (80.0-98.0); Mean Platelet Volume 9.4 fL (9.4-12.4); Monocytes Absolute Auto 0.7 X10*3/uL (0.1-1.2); Monocytes Percent Auto 12.3 % (2-11); Neutrophils Absolute Auto 3.6 x10*3/uL (2.0-8.3); Neutrophils Percent Auto 59.4 % (45-73); Platelet Count 241 X10*3/uL (160-400); Red Blood Count 4.59 X10*6/uL (4.60-5.80); Red Cell Distribution Width 13.4 % (11.0-16.0)
[2024-07-17 10:36] LABS: Estimated Average Glucose 114 mg/dL; Hemoglobin A1c % 5.6 % (<6.0)
[2024-07-17 10:44] LABS: Appearance Urine Clear; Color Urine Yellow; Glucose Urine UA Negative (Negative); Leukocyte Esterase Urine Negative (Negative); Nitrite Urine Negative (Negative); PH 5.5 (5.0-9.0); Urine Blood Negative (Negative); Urine Ketones Negative (Negative); Urine Protein Negative (Neg-Trace)
[2024-07-17 11:16] LABS: Alanine Aminotransferase 21 U/L (0-40); Albumin Level 4.4 g/dL (3.5-5.0); Alkaline Phosphatase 73 U/L (39-117); Anion Gap 12 (12-20); Aspartate Amino Transferase 16 U/L (5-37); Bilirubin Total 0.4 mg/dL (0.0-1.0); Blood Urea Nitrogen 18 mg/dL (9-16); Calcium 9.7 mg/dL (8.4-10.2); Carbon Dioxide 28 mmol/L (22-29); Chloride 102 mmol/L (96-108); Cholesterol 203 mg/dL (<200); Estimated Glomerular Filt Rate > 60; Glucose Fasting 90 mg/dL (60-99); HDL Cholesterol 39 mg/dL (>40); LDL Cholesterol Calculated 140 mg/dL (<100); Potassium 4.2 mmol/L (3.3-5.1); Sodium 138 mmol/L (135-145); Total Protein 7.7 g/dL (6.5-8.0); Triglycerides 124 mg/dL (<150)
[2024-07-17 11:31] LABS: TSH reflex Free T4 2.63 uIU/mL (0.32-4.0); Vitamin D 25-OH Total 40.9 ng/mL (>30)
== END 2024-07-17 08:59 | disposition home or self-care (01) ==
LOC: HO.LAB 08:58
PROVIDERS: PCP Internal Medicine; Visit Provider Internal Medicine
DX: Z00.00 Encounter for general adult medical examination without abnormal findings (principal); I10 Essential (primary) hypertension; E78.5 Hyperlipidemia, unspecified; K21.9 Gastro-esophageal reflux disease without esophagitis; E55.9 Vitamin D deficiency, unspecified; I71.21 Aneurysm of the ascending aorta, without rupture; K76.89 Other specified diseases of liver; N48.6 Induration penis plastica; G47.00 Insomnia, unspecified; F41.9 Anxiety disorder, unspecified; E66.9 Obesity, unspecified; Z68.34 Body mass index [BMI] 34.0-34.9, adult; R30.0 Dysuria; R73.01 Impaired fasting glucose; D64.9 Anemia, unspecified; Z79.899 Other long term (current) drug therapy
CPT/HCPCS: 36415; 80053; 80061; 81003; 82306; 83036; 84443; 85025; 96127; 99397

== ENCOUNTER 2024-07-24 08:41 | Outpatient (AMB) | payer OTHER, SELFPAY ==
--- NOTE | 2024-07-24 08:52 | AM.OFFWIN_ITS ---
Intake Vital Signs 07/24/24 08:53 Height 5 ft 10 in Weight 244 lb BMI 35.0 BP 120/78 Blood Pressure Location Rt brachial Position Sitting Pulse 68 Pulse Source Pulse Oximeter Pulse Oximetry (%) 98 Oxygen Delivery Method Room Air Intake Visit Reasons: EP Cough Intake Note: Patient here for cough that has been present for about 4 days. Patient Tobacco Use Status: Former Tobacco user Allergies No Known Allergies Allergy (Verified 07/24/24 08:54) Do you need a note to return to daycare/school/sports/work: No HPI HPI Comments History of Present Illness Details 63 y/o male patient who presents to the walk in clinic with c/o dry cough x 4 days. Denies fevers, chills, nausea or vomiting. Reports that the cough is worse at night time, and he is unable to fall asleep. [facility] Medical History History of adenomatous polyp of colon Ascending aortic aneurysm Acute appendicitis Anxiety Obesity (BMI 30-39.9) Insomnia GERD without esophagitis Impacted cerumen, left ear Tubular adenoma of colon Vitamin D deficiency Dyslipidemia Essential hypertension Family history of coronary artery disease Surgical History S/P appendectomy History of colonoscopy with polypectomy Family History Mother Diabetes Heart problem CVA (cerebral vascular accident) Father Heart problem Social History Household Members: Spouse Housing: House Do you presently have visiting nurse or other home services: No Alcohol intake: current Alcohol intake frequency: holidays/special occasions only Patient Tobacco Use Status: Former Tobacco user e-Cigarette/Vaping Use: Never Used Substance Use Type: Marijuana Advance Directives Date on File: 08/22/20 service: No Current occupational status: retired Cognitive needs: No Hearing needs: No Vision needs: Yes (glasses) Review of Systems Const All systems reviewed & are unremarkable except as noted in HPI and below Physical Exam Vital Signs: Last Vital Signs Pulse 68 07/24/24 08:53 BP 120/78 07/24/24 08:53 Pulse Ox 98 07/24/24 08:53 Oxygen Delivery Method Room Air 07/24/24 08:53 BMI result Body Mass Index 35.0 Const General: cooperative and no acute distress Nutritional Appearance: overweight Orientation/consciousness: patient oriented x3 HEENT Head: Yes normocephalic Ears: external ears normal and unable to visualize TM (cerumen impaction) bilaterally General nose exam: No nasal discharge present Mouth: moist mucous membranes Throat: Yes postnasal drainage Resp Effort & Inspection: normal respiratory effort, able to speak in complete sentences and Actively coughing Auscultation: clear to auscultation bilaterally, no crackles, no rales, no rhonchi and no wheezes Cardio Heart sounds: S1 normal heart sound present and S2 normal heart sound present Neuro General: patient oriented x3 Assessment & Plan Assessment & Plan (1) Cough in adult: Code(s): R05.9 - Cough, unspecified Plan: OTC cough remedies Ordered Abx Medications: New azithromycin 500 mg PO DAILY 3 days 3 tabs 0RF R05.9 - Cough, unspecified benzonatate 100 mg PO TID 90 caps 0RF R05.9 - Cough, unspecified Coding Level of Care Code Est Pt Level 3 (47799) Diagnoses Cough in adult R05.9 Time Spent (min) 15
[2024-07-24 08:53] VITALS: BP 120/78; PULSE 68; O2SAT 98; BMI 35.0
== END 2024-07-24 09:27 | disposition home or self-care (01) ==
PROVIDERS: PCP Internal Medicine; Visit Provider Nurse Practitioner Family
DX: R05.9 Cough, unspecified (principal)

== ENCOUNTER → 2024-07-24 08:41 | Outpatient (BNVA) | payer OTHER, SELFPAY | PROVIDERS: PCP Internal Medicine | DX: R05.9 Cough, unspecified (principal) | CPT/HCPCS: 99212 ==

== ENCOUNTER 2024-08-13 08:04 | Outpatient (REF) | payer OTHER, SELFPAY ==
[2024-08-13 09:36] LABS: Prostate Specific Antigen 1.48 ng/mL (<0.05-4.0)
== END 2024-08-13 08:05 | disposition home or self-care (01) ==
LOC: HO.LAB 08:04
PROVIDERS: PCP Internal Medicine; Visit Provider Urology
DX: Z12.5 Encounter for screening for malignant neoplasm of prostate (principal)
CPT/HCPCS: 36415; 84153

== ENCOUNTER 2024-08-21 08:46 | Outpatient (AMB) | payer OTHER, SELFPAY ==
--- NOTE | 2024-08-21 08:56 | A.OFFVIS_ITS ---
Intake Visit Reasons: 6m/PSA(set) Intake Note: Patient is Present for Follow Up PSA Results Urology Medication: Tadalafil, Sildenafil Antibiotic Allergies: None Blood Thinners: None Recent PSA: 08/13/24 1.48 Recent Hemoglobin A1C: 07/17/24- A1C 5.6 Clerk Typist Required: No Accompanied by: Self / Same As Patient Allergies No Known Allergies Allergy (Verified 08/21/24 09:00) HPI Comments Details: Tank is a pleasant male. He is a patient of Dr. Elliott. He is seen for the following urologic conditions - Peyronies disease - erectile dysfunction - borderline low testosterone Six-month follow-up. Continued ongoing care as part of a longitudinal relationship for complex condition related to hypogonadism Continue 5 mg daily tadalafil With on demand sildenafil Still has some venous late Demonstrated penile constriction band Discussed minimal cardiac issues 6 month follow-up Low testosterone Good response to clomiphene 50 mg q.o.d. Labs - 07/12 T 620 LH 3.1, 01/10 783 P1.4, 02/11 T 295 Clomid stopped January 10 Erectile dysfunction Responded well to combination tadalafil and pentoxifylline PSA 02/11 1.5 Peyronie's disease Previously response to pentoxifylline Primary complaint is - penile curvature The problem has been present - since March 2021 At this time he experiences - partial erections sufficient for penetrative intercourse [place] has - can be achieved however is uncomfortable On exam has thickening of dorsal left Associated symptoms include penile pain No penile discharge No Prior management includes - Associated conditions history of penile trauma No CAD No - does have dyslipidemia diabetes No erectile dysfunction No hypertension yes peripheral vascular disease No Investigations - 11/11 T 165, 05/11 230 LH 1.3 Therapeutic plan continue conservative therapy [facility] Medical History History of adenomatous polyp of colon Ascending aortic aneurysm Acute appendicitis Anxiety Obesity (BMI 30-39.9) Insomnia GERD without esophagitis Impacted cerumen, left ear Tubular adenoma of colon Vitamin D deficiency Dyslipidemia Essential hypertension Family history of coronary artery disease Surgical History S/P appendectomy History of colonoscopy with polypectomy Family History Mother Diabetes Heart problem CVA (cerebral vascular accident) Father Heart problem Social History Household Members: Spouse Housing: House Do you presently have visiting nurse or other home services: No Alcohol intake: current Alcohol intake frequency: holidays/special occasions only Patient Tobacco Use Status: Former Tobacco user e-Cigarette/Vaping Use: Never Used Substance Use Type: Marijuana Advance Directives Date on File: 08/22/20 service: No Current occupational status: retired Cognitive needs: No Hearing needs: No Vision needs: Yes (glasses) Review of Systems Const Denies chills and Denies fever(s) Card Reports no additional complaints and Denies syncope Resp Denies cough GI Denies abdominal pain and Denies heartburn Reports as per HPI and Denies change in libido Neuro Denies syncope Psych Denies change in libido Endo Denies change in libido Physical Exam Const General: cooperative, healthy appearing, comfortable and no acute distress Orientation/consciousness: patient oriented x3 HEENT Face and sinus: Yes normal facial exam Mouth: moist mucous membranes Neck Neck: Yes normal visual inspection, Yes full ROM and Yes trachea midline Chest Chest palpation & inspection: normal inspection of the chest Resp Effort & Inspection: normal respiratory effort, able to speak in complete sentences and no respiratory distress GI Inspection: Yes normal to inspection Back/Spine/Pelvis Cervical Spine: normal cervical lordosis Thoracic/Lumbar Spine: thoracic and lumbar spine normal to inspection Skin General skin exam: no rashes or lesions noted Neuro General: patient oriented x3, gait normal, tone normal and moves all extremities Extrem General: Yes normal to inspection and Yes capillary refill normal Assessment & Plan Assessment & Plan (1) Peyronie's disease: Code(s): N48.6 - Induration penis plastica Category: Medical (2) Erectile dysfunction due to arterial insufficiency: Code(s): N52.01 - Erectile dysfunction due to arterial insufficiency Category: Medical Plan Six-month follow-up Orders: Orders Prostate Specific Antigen 08/13/24 Z12.5 - Encounter for screening for malignant neoplasm of prostate Patient Instructions: Imaging studies, laboratory and physical exam results were discussed and reviewed in detail. No major barriers to patient understanding were identified. An opportunity to ask questions regarding the treatment plan was provided. All questions were answered. The patient expressed understanding and agreement with the above treatment plan. The patient is aware they should contact our office by phone for worsening of their current condition or the appearance of new urologic symptoms. Compliance is encouraged with any medications and followup testing that is ordered. It is a privilege to participate in the urologic care of your patient. If you have any questions or concerns regarding treatment for the above conditions, or other urologic issues, please do not hesitate to contact me. The office telephone contact is [phone]. This note is constructed using voice recognition software. While every effort has been made to ensure accuracy lockstitch coat joiner errors may have been included. Yours sincerely, Dr Mukesh Campbell MD, [facility] - Urology Providers of Expert, Compassionate Care for the Genitourinary System Coding Level of Care Code Est Pt Level 3 (81382) Diagnoses Peyronie's disease N48.6 Erectile dysfunction due to arterial insufficiency N52.01
== END 2024-08-21 09:27 | disposition home or self-care (01) ==
LOC: HO.HUSH 08:47
PROVIDERS: PCP Internal Medicine; Visit Provider Urology
DX: N48.6 Induration penis plastica (principal); N52.01 Erectile dysfunction due to arterial insufficiency
CPT/HCPCS: 99213

== ENCOUNTER → 2024-08-21 08:46 | Outpatient (BNVA) | payer OTHER, SELFPAY | PROVIDERS: PCP Internal Medicine; Visit Provider Urology | DX: N48.6 Induration penis plastica (principal); N52.01 Erectile dysfunction due to arterial insufficiency | CPT/HCPCS: 99212 ==

== ENCOUNTER 2024-11-05 08:44 | Outpatient (AMB) | payer BC, SELFPAY ==
--- NOTE | 2024-11-05 08:51 | A.OFFVIS_ITS ---
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 Overall, he states he is doing good. No complaints like angina or shortness of breath or in fact anything cardiac sounding. [facility] Medical History History of adenomatous polyp of colon Ascending aortic aneurysm Acute appendicitis Anxiety Obesity (BMI 30-39.9) Insomnia GERD without esophagitis Impacted cerumen, left ear Tubular adenoma of colon Vitamin D deficiency Dyslipidemia Essential hypertension Family history of coronary artery disease Surgical History S/P appendectomy History of colonoscopy with polypectomy Family History Mother Diabetes Heart problem CVA (cerebral vascular accident) Father Heart problem Social History Household Members: Spouse Housing: House Do you presently have visiting nurse or other home services: No Alcohol intake: current Alcohol intake frequency: holidays/special occasions only Patient Tobacco Use Status: Former Tobacco user e-Cigarette/Vaping Use: Never Used Substance Use Type: Marijuana Advance Directives Date on File: 08/22/20 service: No Current occupational status: retired Cognitive needs: No Hearing needs: No Vision needs: Yes (glasses) Review of Systems Const Denies chills, Denies fatigue, Denies fever(s), Denies frequent falls, Denies weakness, Denies weight gain and Denies weight loss ENT Denies dizziness Card Denies chest pain, Denies leg edema, Denies lightheadedness, Denies palpitations, Denies dyspnea and Denies dyspnea on exertion Resp Denies cough, Denies dyspnea and Denies dyspnea on exertion GI Denies hematochezia Musc Denies abnormal gait, Denies muscle weakness, Denies numbness, Denies radiating pain into limb and Denies tingling Neuro Denies abnormal gait, Denies dizziness, Denies frequent falls, Denies numbness, Denies tingling and Denies weakness Endo Denies fatigue and Denies palpitations Physical Exam Vital Signs: Last Vital Signs Pulse 93 11/05/24 08:52 BP 120/72 11/05/24 08:52 BMI result Body Mass Index 35.9 Const General: comfortable and no acute distress Orientation/consciousness: patient oriented x3 HEENT Other: Unremarkable Head: Yes normal to inspection Neck Neck: Yes normal visual inspection Chest Chest palpation & inspection: normal inspection of the chest Resp Auscultation: clear to auscultation bilaterally Cardio Palpation: normal PMI Heart sounds: S1 normal heart sound present, S2 normal heart sound present, no gallops, no murmurs and no rubs GI Palpation (GI): Soft to palpation Back/Spine/Pelvis Other: unremarkable Skin General skin exam: no rashes or lesions noted Neuro General: patient oriented x3 Extrem General: Yes normal to inspection Psych Mental Status: mental status grossly normal Office Procedures EKG Details: EKG with underlying sinus rhythm at 93/Min; no significant ST-T changes and otherwise unremarkable[place] [id number], Complete Assessment & Plan Assessment & Plan (1) Ascending aortic aneurysm: Code(s): I71.2 - Thoracic aortic aneurysm, without rupture Category: Medical Qualifiers: Presence of rupture: without rupture Qualified Code(s): I71.21 - Aneurysm of the ascending aorta, without rupture (2) Essential hypertension: Code(s): I10 - Essential (primary) hypertension Category: Medical Plan Cardiac studies reviewed. In the echocardiogram from 06/2024, ascending aortic size 4.5 cm. Prior to that, in 10/2023, it was 4.6 cm. In 2021, reported 4.4 cm. In the CTA from 12/2023, ascending aortic size 4.7/4.3 cm. In the CTA 2020- aortic root 4 x 4.5 cm; distal ascending aorta measured 4.3 x 4.3 cm. Proximal ascending was 2.8 x 3.3. Myocardial perfusion imaging study from 2020-normal perfusion. Overall, status will ascending aortic aneurysm. He denies any family history of the same. Etiology possible hypertension related. Blood pressure seems stable. We will repeat an echocardiogram in about 6 months to reassess the aneurysm. Follow-up in 1 year. In the interim, he will call for concerns. Orders: Orders CA Echo Limited 6 Months I71.21 - Aneurysm of the ascending aorta, without rupture Coding Level of Care Code Est Pt Level 4 (69796) Diagnoses Aneurysm of ascending aorta without rupture I71.21 Presence of rupture: without rupture Essential hypertension I10 CPT Codes EKG - CPT: 65705-[id number], Complete ([id number])
[2024-11-05 08:52] VITALS: BP 120/72; PULSE 93; BMI 35.9
== END 2024-11-05 09:19 | disposition home or self-care (01) ==
PROVIDERS: PCP Internal Medicine; Visit Provider Internal Medicine
DX: I71.21 Aneurysm of the ascending aorta, without rupture (principal); I10 Essential (primary) hypertension
CPT/HCPCS: 93010; 99214

== ENCOUNTER → 2024-11-05 08:44 | Outpatient (BNVA) | payer OTHER, SELFPAY | PROVIDERS: PCP Internal Medicine; Visit Provider Internal Medicine | DX: I71.21 Aneurysm of the ascending aorta, without rupture (principal); I10 Essential (primary) hypertension | CPT/HCPCS: 93005 ==

== ENCOUNTER 2024-11-14 07:19 | Outpatient (REF) | payer BC, SELFPAY ==
[2024-11-14 07:35] LABS: MANUAL DIFF FLAG NO
[2024-11-14 08:12] LABS: Appearance Urine Clear; Color Urine Yellow; Glucose Urine UA Negative (Negative); Leukocyte Esterase Urine Negative (Negative); Nitrite Urine Negative (Negative); PH 5.5 (5.0-9.0); Specific Gravity - Urine >= 1.030 (1.005-1.025); Urine Blood Negative (Negative); Urine Ketones Trace mg/dL (Negative); Urine Protein Negative (Neg-Trace)
[2024-11-14 08:15] LABS: Basophils Absolute Auto 0.1 X10*3/uL (0.0-0.2); Basophils Percent Auto 1.1 % (0-2); Eosinophils Absolute Auto 0.1 X10*3/uL (0.0-0.4); Eosinophils Percent Auto 2.2 % (0-4); Hematocrit 44.1 % (42.0-52.0); Hemoglobin 14.3 g/dl (14.0-18.0); Imm Gran Abs Auto 0.01 X10*3/uL (0.00-0.03); Imm Gran Pct Auto 0.2 % (0.0-0.4); Lymphocytes Absolute Auto 1.9 X10*3/uL (1.2-4.9); Lymphocytes Percent Auto 29.7 % (20-40); Mean Corpuscular HGB Conc 32.4 g/dl (31.0-36.0); Mean Corpuscular Hemoglobin 30.8 pg (27.0-33.0); Mean Platelet Volume 9.4 fL (9.4-12.4); Monocytes Absolute Auto 0.6 X10*3/uL (0.1-1.2); Monocytes Percent Auto 9.9 % (2-11); Neutrophils Absolute Auto 3.7 x10*3/uL (2.0-8.3); Neutrophils Percent Auto 56.9 % (45-73); Platelet Count 242 X10*3/uL (160-400); Red Blood Count 4.64 X10*6/uL (4.60-5.80); Red Cell Distribution Width 13.9 % (11.0-16.0); White Blood Count 6.4 X10*3/uL (4.8-10.8)
[2024-11-14 08:21] LABS: Estimated Average Glucose 123 mg/dL; Hemoglobin A1C 144.3835 umol/L; Hemoglobin A1c % 5.9 % (<6.0); Total Hemoglobin (HGBA1C) 3548.9476 umol/L
[2024-11-14 08:53] LABS: Alanine Aminotransferase 23 U/L (0-40); Albumin Level 4.2 g/dL (3.5-5.0); Alkaline Phosphatase 63 U/L (39-117); Anion Gap 10 (12-20); Aspartate Amino Transferase 20 U/L (5-37); Bilirubin Total 0.3 mg/dL (0.0-1.0); Blood Urea Nitrogen 17 mg/dL (9-16); Calcium 9.5 mg/dL (8.4-10.2); Carbon Dioxide 28 mmol/L (22-29); Chloride 105 mmol/L (96-108); Cholesterol 200 mg/dL (<200); Estimated Glomerular Filt Rate > 60; Glucose Fasting 93 mg/dL (60-99); HDL Cholesterol 41 mg/dL (>40); LDL Cholesterol Calculated 141 mg/dL (<100); Potassium 4.4 mmol/L (3.3-5.1); Sodium 139 mmol/L (135-145); Total Protein 7.6 g/dL (6.5-8.0); Triglycerides 93 mg/dL (<150)
[2024-11-14 09:01] LABS: TSH reflex Free T4 2.63 uIU/mL (0.32-4.0); Vitamin D 25-OH Total 37.7 ng/mL (>30)
== END 2024-11-14 07:20 | disposition home or self-care (01) ==
LOC: HO.LAB 07:19
PROVIDERS: PCP Internal Medicine; Visit Provider Internal Medicine
DX: E78.00 Pure hypercholesterolemia, unspecified (principal); R30.0 Dysuria; D64.9 Anemia, unspecified; E55.9 Vitamin D deficiency, unspecified; R73.01 Impaired fasting glucose
CPT/HCPCS: 36415; 80053; 80061; 81003; 82306; 83036; 84443; 85025

== ENCOUNTER 2024-11-18 12:15 | Outpatient (AMB) | payer BC, SELFPAY ==
[2024-11-18 12:34] VITALS: BP 110/62; PULSE 88; O2SAT 94; BMI 35.8
--- NOTE | 2024-11-18 12:34 | MHC.PC.OV ---
Vital Signs 11/18/24 12:34 Height 5 ft 10 in Weight 249 lb 6 oz BMI 35.8 BP 110/62 Blood Pressure Location Lt brachial Position Sitting Pulse 88 Pulse Source Pulse Oximeter Pulse Oximetry (%) 94 Oxygen Delivery Method Room Air Intake Visit Reasons: [facility] f/u Collections Clerk Required: No Accompanied by: Self / Same As Patient Allergies No Known Allergies Allergy (Verified 11/18/24 13:06) Medication List - Last Reconciled 11/18/24 by Oziel Elliott MD escitalopram oxalate 10 mg PO DAILY lisinopril 30 mg PO DAILY Tobacco use date assessed: 11/18/24 Fall risk assessment: No Falls in past year Last assessed Fall Risk: 11/18/24 Dental Screening Dental Screen Date: 11/18/24 Did you have a dental visit in the last 12 months?: No Did you have a dental problem in the last 6 months where you did not have access to dental care?: No Was dental information given to patient?: No HPI [facility] f/u HPI Details Patient comes in today for his follow up visit States that he feels okay He denies any headaches or dizziness Denies any chest pains, no SOB No nausea/vomiting, no abdominal pain No change in bowel habits noted Needs a couple of his Rx refilled He had his follow up labs done a few days ago - to discuss his results [facility] Medical History History of adenomatous polyp of colon Ascending aortic aneurysm Acute appendicitis Anxiety Obesity (BMI 30-39.9) Insomnia GERD without esophagitis Impacted cerumen, left ear Tubular adenoma of colon Vitamin D deficiency Dyslipidemia Essential hypertension Family history of coronary artery disease Surgical History S/P appendectomy History of colonoscopy with polypectomy Family History Mother Diabetes Heart problem CVA (cerebral vascular accident) Father Heart problem Social History Household Members: Spouse Housing: House Do you presently have visiting nurse or other home services: No Alcohol intake: current Alcohol intake frequency: holidays/special occasions only Patient Tobacco Use Status: Former Tobacco user e-Cigarette/Vaping Use: Never Used Substance Use Type: Marijuana Advance Directives Date on File: 08/22/20 service: No Current occupational status: retired Cognitive needs: No Hearing needs: No Vision needs: Yes (glasses) Questionnaire PHQ-9 Over the last 2 weeks, how often have you been bothered by any of the following problems? 1. Little interest or pleasure in doing things: not at all 2. Feeling down, depressed, or hopeless: not at all 3. Trouble falling or staying asleep, or sleeping too much: not at all 4. Feeling tired or having little energy: not at all 5. Poor appetite or overeating: not at all 6. Feeling bad about yourself - or that you are a failure or have let yourself or your family down: not at all 7. Trouble concentrating on things, such as reading the newspaper or watching television: not at all 8. Moving or speaking so slowly that other people could have noticed. Or the opposite - being so fidgety or restless that you have been moving around a lot more than usual: not at all 9. Thoughts that you would be better off or of hurting yourself in some way: not at all Total score: 0 Depression Screening Interpretation: Negative Depression Screening Done: Yes 73145 - PHQ-9 Billing: Yes Source: Developed by Drs. Mau Huddleston, Mayra Wiseman, Roge Fink and colleagues, with an educational karen from [employer] Thrive Questionnaire Date Thrive assessed: 11/18/24 I am a: Patient What is your living situation today?: I have a steady place to live Within the past 12 months, did the food you bought not last and you didn't have the money to get more?: Never true Within the past 12 months, did you worry whether your food would run out before you got money to buy more?: Never true Do you have trouble paying for medicines?: No Do you have trouble getting transportation to medical appointments?: No Do you have trouble paying your heating and electricity bill?: No Do you have trouble taking care of your child, family member or friend?: No Do you have trouble with day-to-day activities such as bathing, preparing meals, shopping, managing finances, etc.?: No Are you currently unemployed and looking for a job?: No Are you interested in more education?: No Please select the resources that you would like help with: None Currently or been in a relationship where the following occur: No concerns reported THRIVE Score: 0 AUDIT C Alcohol Use Questionnaire (AUDIT-C) 1. How often do you have a drink containing alcohol?: 2-4 times a month 2. How many drinks containing alcohol do you have on a typical day when you are drinking?: 1 or 2 3. How often do you have six or more drinks on one occasion?: Never Total Score: 2 Score Reviewed/Action Taken: Yes VICK-7 AMB Questionnaire VICK-7 Date VICK - 7 assessed: 11/18/24 Feeling nervous, anxious, or on edge: 0 = Not at all Not being able to stop or control worryin = Not at all Worrying too much about different things: 0 = Not at all Trouble relaxin = Not at all Being so restless that it is hard to sit still: 0 = Not at all Becoming easily annoyed or irritable: 0 = Not at all Feeling afraid as if something awful might happen: 0 = Not at all Total VICK-7 score (0-4 normal; 5-9 mild; 10-14 moderate; 15-21 severe): 0 Source: Developed by Drs. Mau Huddleston, Mayra Wiseman, Roge Fink and colleagues, with an educational karen from [employer] Review of Systems Const Denies chills, Denies fatigue, Denies fever(s) and Denies headache(s) ENT Denies dysphagia, Denies dizziness, Denies otalgia, Denies headache(s), Denies neck pain, Denies odynophagia and Denies sore throat Card Denies chest pain, Denies irregular heart rhythm, Denies palpitations and Denies dyspnea Resp Denies chest congestion, Denies cough and Denies dyspnea GI Denies abdominal pain, Denies constipation, Denies dysphagia, Denies heartburn, Denies diarrhea, Denies nausea, Denies odynophagia and Denies vomiting Denies difficulty urinating, Denies dysuria, Denies urinary frequency and Denies urinary urgency Musc Denies back pain, Denies arthralgias and Denies neck pain Skin/Breast Denies rash Neuro Denies dizziness, Denies headache(s) and Denies paresthesias Endo Denies fatigue and Denies palpitations Physical exam (Primary Care) Vital Signs: Last Vital Signs Pulse 88 11/18/24 12:34 BP 110/62 11/18/24 12:34 Pulse Ox 94 11/18/24 12:34 Oxygen Delivery Method Room Air 11/18/24 12:34 BMI result Body Mass Index 35.8 Tobacco/Smoking Status: Tobacco use Status Tobacco use date assessed 11/18/24 11/18/24 12:47 Patient Tobacco Use Status Former Tobacco user 11/18/24 12:47 e-Cigarette/Vaping Use Never Used 11/18/24 12:47 PHQ-9: PHQ-9 Score PHQ-9: Total score 0 11/18/24 13:08 Depression Screening Interpretation: Negative Thrive Assessment: Date of Thrive Assessment Date Thrive assessed 11/18/24 11/18/24 12:47 Currently or been in a relationship where the following occur: No concerns reported Const General: no acute distress and alert HENMT Ears: TM's normal bilaterally and EAC's normal Throat: Yes posterior oropharynx normal and Yes tonsils normal (no TP congestion) Neck Neck: Yes supple and No lymphadenopathy Thyroid: Thyroid normal Resp Auscultation: clear to auscultation bilaterally, no rales and no wheezes Cardio Rate: regular rate Rhythm: regular rhythm Heart sounds: no murmurs GI Palpation (GI): Soft to palpation and nontender Auscultation: normal bowel sounds General: Yes no CVA tenderness Back/Spine/Pelvis Back: no CVA tenderness Skin Lesions: no lesions Rashes: no rashes Extrem General: Yes no clubbing, cyanosis or edema Results Reviewed Results Reviewed: Laboratory Tests 11/14/24 11/14/24 07:34 07:35 WBC 6.4 Hgb 14.3 Hct 44.1 Plt Count 242 Sodium 139 Potassium 4.4 Creatinine 0.90 Estimated GFR > 60 Fasting Glucose 93 Hemoglobin A1c % 5.9 Calcium 9.5 AST 20 ALT 23 Triglycerides 93 Cholesterol 200 H LDL Cholesterol, Calc 141 H HDL Cholesterol 41 25-OH Vitamin D Total 37.7 TSH 2.63 Urine pH 5.5 Ur Specific [place] >= 1.030 H Urine Protein Negative Urine Glucose (UA) Negative Urine Blood Negative Urine Nitrite Negative Ur Leukocyte Esterase Negative Coding Level of Care Code Est Pt Level 4 (20981) Diagnoses Essential hypertension I10 Dyslipidemia E78.5 GERD without esophagitis K21.9 Vitamin D deficiency E55.9 Aneurysm of ascending aorta without rupture I71.21 Presence of rupture: without rupture Hepatic cyst K76.89 Peyronie's disease N48.6 Erectile dysfunction due to arterial insufficiency N52.01 Insomnia, unspecified type G47.00 Insomnia type: unspecified Anxiety F41.9 Obesity (BMI 30-39.9) E66.9 Additional Codes PHQ-9 - 00040 - PHQ-9 Billing: Yes ([id number]) Assessment & Plan Assessment & Plan (1) Essential hypertension: Code(s): I10 - Essential (primary) hypertension Category: Medical Plan: Reinforced low sodium diet - goal is systolic BP of 120 mm or less Continue Lisinopril 30 mg QD (2) Dyslipidemia: Comment: no meds, being watched Code(s): E78.5 - Hyperlipidemia, unspecified Category: Medical Plan: Results of his labs done a few days ago reviewed and discussed with patient Reinforced low cholesterol diet Will recheck his labs and fasting lipids in 4 months for follow up (3) GERD without esophagitis: Code(s): K21.9 - Gastro-esophageal reflux disease without esophagitis Category: Medical Plan: Dietary restrictions reinforced Patient takes his Omeprazole only as needed when his symptoms flare up (4) Vitamin D deficiency: Code(s): E55.9 - Vitamin D deficiency, unspecified Category: Medical Plan: Corrected on his previous labs Will recheck his Vitamin D level in 4 months for follow up (5) Ascending aortic aneurysm: Code(s): I71.2 - Thoracic aortic aneurysm, without rupture Category: Medical Qualifiers: Presence of rupture: without rupture Qualified Code(s): I71.21 - Aneurysm of the ascending aorta, without rupture Plan: Chest CTA done on 06/20/2021 showed an ascending thoracic aortic aneurysm with the maximum diameter measuring 4.0 x 4.5 cm Echocardiogram done in 11/2021 revealed normal LV systolic function with grade 1 diastolic dysfunction, trivial aortic regurgitation, dilated ascending aorta at 4.4 cm that is unchanged from before, normal RV systolic pressure?and no pericardial effusion Echocardiogram done in September 2022 revealed no changes - ascending aorta is again mildly dilated at 4.3 cm Repeat echocardiogram done on 11/08/2023 revealed that the left ventricular systolic function is normal and the calculated ejection fraction is 58% by biplane method. There is no obvious valvular pathology seen on this study. There is moderate dilatation of the ascending aorta measuring 4.60 cm, which has increased slightly from last year He recently had another echocardiogram done a few weeks ago in June 2024 - echo showed normal LV ejection fraction of 60-65% with impaired relaxation filling pattern, normal cardiac valvular doppler, moderately dilated ascending aorta at 4.5 cm with normal RV systolic pressure Have emphasized again to patient strict BP control to keep his aneurysm from progressing Follow up with cardiology as scheduled for continuing surveillance (6) Hepatic cyst: Code(s): K76.89 - Other specified diseases of liver Category: Medical Plan: Hepatic US done in 12/2020 revealed a 1.5 cm hepatic cyst - confirmed on CTA done in 05/2021 Abdominal US done in July 2022 revealed again the small hepatic cyst seen previously on US and CT with no changes Will continue to monitor with US regularly - will recheck his abdominal US later this year for follow up (7) Peyronie's disease: Code(s): N48.6 - Induration penis plastica Category: Medical Plan: Follow up with urology as scheduled (8) Erectile dysfunction due to arterial insufficiency: Code(s): N52.01 - Erectile dysfunction due to arterial insufficiency Category: Medical Plan: Continue Tadalafil 5 mg QD; he was previously also on Pentoxifylline ER 400 mg BID but this appears to have been discontinued recently Follow up with urology as scheduled (9) Insomnia: Code(s): G47.00 - Insomnia, unspecified Category: Medical Qualifiers: Insomnia type: unspecified Qualified Code(s): G47.00 - Insomnia, unspecified Plan: Sleep hygiene reinforced Patient states that he has not needed to take his Trazodone lately; states that he did not really take it much or often when he was started on it last year (10) Anxiety: Code(s): F41.9 - Anxiety disorder, unspecified Category: Medical Plan: Continue Escitalopram 10 mg QD (11) Obesity (BMI 30-39.9): Code(s): E66.9 - Obesity, unspecified Category: Medical Plan: Reinforced diet/exercise as tolerated/lose weight Plan Follow up in 4 months Orders: Orders Complete Blood Count Auto Diff 4 Months D64.9 - Anemia, unspecified Hemoglobin A1c 4 Months R73.01 - Impaired fasting glucose Lipid Panel 4 Months E78.00 - Pure hypercholesterolemia, unspecified Comprehensive [place]. Panel Fast 4 Months E78.00 - Pure hypercholesterolemia, unspecified UA CC w/rflx Micro + Cult 4 Months R30.0 - Dysuria TSH reflex Free T4 4 Months E78.00 - Pure hypercholesterolemia, unspecified Vitamin D 25-OH Total 4 Months E55.9 - Vitamin D deficiency, unspecified Medications: Refilled escitalopram oxalate 10 mg PO DAILY 90 tabs 1RF F41.9 - Anxiety disorder, unspecified lisinopril 30 mg PO DAILY 90 tabs 1RF
== END 2024-11-18 13:18 | disposition home or self-care (01) ==
PROVIDERS: PCP Internal Medicine; Visit Provider Internal Medicine
DX: I10 Essential (primary) hypertension (principal); I71.21 Aneurysm of the ascending aorta, without rupture; E66.9 Obesity, unspecified; Z68.35 Body mass index [BMI] 35.0-35.9, adult; E78.5 Hyperlipidemia, unspecified; K21.9 Gastro-esophageal reflux disease without esophagitis; E55.9 Vitamin D deficiency, unspecified; K76.89 Other specified diseases of liver; N48.6 Induration penis plastica; N52.01 Erectile dysfunction due to arterial insufficiency; G47.00 Insomnia, unspecified; F41.9 Anxiety disorder, unspecified

== ENCOUNTER → 2024-11-18 12:15 | Outpatient (BNVA) | payer BC, SELFPAY | PROVIDERS: PCP Internal Medicine; Visit Provider Internal Medicine | DX: I10 Essential (primary) hypertension (principal); E78.5 Hyperlipidemia, unspecified; K21.9 Gastro-esophageal reflux disease without esophagitis; E55.9 Vitamin D deficiency, unspecified; I71.21 Aneurysm of the ascending aorta, without rupture; K76.89 Other specified diseases of liver; N48.6 Induration penis plastica; N52.01 Erectile dysfunction due to arterial insufficiency; G47.00 Insomnia, unspecified; F41.9 Anxiety disorder, unspecified; E66.9 Obesity, unspecified; Z79.899 Other long term (current) drug therapy | CPT/HCPCS: 96127 ==

== ENCOUNTER 2025-03-08 06:32 | Outpatient (REF) | payer BC, SELFPAY ==
[2025-03-08 06:44] LABS: MANUAL DIFF FLAG NO
[2025-03-08 07:23] LABS: Basophils Absolute Auto 0.1 X10*3/uL (0.0-0.2); Basophils Percent Auto 0.7 % (0-2); Eosinophils Absolute Auto 0.2 X10*3/uL (0.0-0.4); Eosinophils Percent Auto 2.2 % (0-4); Hematocrit 43.8 % (42.0-52.0); Hemoglobin 14.2 g/dl (14.0-18.0); Imm Gran Abs Auto 0.03 X10*3/uL (0.00-0.03); Imm Gran Pct Auto 0.4 % (0.0-0.4); Lymphocytes Percent Auto 29.9 % (20-40); Mean Corpuscular HGB Conc 32.4 g/dl (31.0-36.0); Mean Corpuscular Hemoglobin 30.7 pg (27.0-33.0); Mean Corpuscular Volume 94.6 fL (80.0-98.0); Mean Platelet Volume 9.2 fL (9.4-12.4); Monocytes Absolute Auto 0.6 X10*3/uL (0.1-1.2); Monocytes Percent Auto 8.4 % (2-11); Neutrophils Percent Auto 58.4 % (45-73); Platelet Count 266 X10*3/uL (160-400); Red Blood Count 4.63 X10*6/uL (4.60-5.80); Red Cell Distribution Width 13.8 % (11.0-16.0); White Blood Count 6.8 X10*3/uL (4.8-10.8)
[2025-03-08 07:50] LABS: Estimated Average Glucose 120 mg/dL; Hemoglobin A1C 148.9406 umol/L; Hemoglobin A1c % 5.8 % (<6.0); Total Hemoglobin (HGBA1C) 3752.6962 umol/L
[2025-03-08 08:07] LABS: Alanine Aminotransferase 26 U/L (0-40); Albumin Level 4.4 g/dL (3.5-5.0); Alkaline Phosphatase 64 U/L (39-117); Anion Gap 12 (12-20); Aspartate Amino Transferase 19 U/L (5-37); Bilirubin Total 0.4 mg/dL (0.0-1.0); Blood Urea Nitrogen 21 mg/dL (9-16); Calcium 9.6 mg/dL (8.4-10.2); Carbon Dioxide 27 mmol/L (22-29); Chloride 102 mmol/L (96-108); Cholesterol 198 mg/dL (<200); Estimated Glomerular Filt Rate > 60; Glucose Fasting 100 mg/dL (60-99); HDL Cholesterol 40 mg/dL (>40); LDL Cholesterol Calculated 136 mg/dL (<100); Potassium 4.3 mmol/L (3.3-5.1); Sodium 137 mmol/L (135-145); Total Protein 7.5 g/dL (6.5-8.0); Triglycerides 113 mg/dL (<150)
[2025-03-08 08:09] LABS: Appearance Urine Clear; Color Urine Yellow; Glucose Urine UA Negative (Negative); Leukocyte Esterase Urine Negative (Negative); Nitrite Urine Negative (Negative); PH 5.5 (5.0-9.0); Urine Blood Negative (Negative); Urine Ketones Negative (Negative); Urine Protein Negative (Neg-Trace)
[2025-03-08 08:12] LABS: Prostate Specific Antigen 1.65 ng/mL (<0.05-4.0)
[2025-03-08 08:25] LABS: TSH reflex Free T4 2.44 uIU/mL (0.32-4.0); Vitamin D 25-OH Total 31.7 ng/mL (>30)
== END 2025-03-08 06:33 | disposition home or self-care (01) ==
LOC: HO.LAB 06:32
PROVIDERS: PCP Internal Medicine; Visit Provider Urology
DX: E78.00 Pure hypercholesterolemia, unspecified (principal); R30.0 Dysuria; D64.9 Anemia, unspecified; R73.01 Impaired fasting glucose; E55.9 Vitamin D deficiency, unspecified; Z12.5 Encounter for screening for malignant neoplasm of prostate
CPT/HCPCS: 36415; 80053; 80061; 81003; 82306; 83036; 84153; 84443; 85025

== ENCOUNTER 2025-03-18 09:03 | Outpatient (AMB) | payer BC, SELFPAY ==
--- NOTE | 2025-03-18 09:04 | MHC.OFFVIS ---
Intake Visit Reasons: 6m/psa(psa?) Intake Note: Patient is present for 6M/PSA Urology Medication:NONE Antibiotic Allergy:NONE Blood Thinner:NONE Counter Checker Required: No Allergies No Known Allergies Allergy (Verified 03/18/25 09:04) HPI Comments Details: Tank is a pleasant male. He is a patient of Dr. Elliott. He is seen for the following urologic conditions - Peyronies disease - erectile dysfunction - borderline low testosterone Telemedicine Evaluation 15 min Consultation [facility] Six-month follow-up. Continued ongoing care as part of a longitudinal relationship for complex condition related to hypogonadism Continue 5 mg daily tadalafil - With on demand sildenafil Discussed minimal cardiac issues 6 month follow-up Low testosterone Good response to clomiphene 50 mg q.o.d. Labs - 07/12 T 620 LH 3.1, 01/10 783 P1.4, 02/11 T 295 Clomid stopped January 10 Erectile dysfunction Responded well to combination tadalafil and pentoxifylline PSA 02/11 1.5, 03/14 1.6 Peyronie's disease Previously response to pentoxifylline Primary complaint is - penile curvature The problem has been present - since March 2021 At this time he experiences - partial erections sufficient for penetrative intercourse [place] has - can be achieved however is uncomfortable On exam has thickening of dorsal left Associated symptoms include penile pain No penile discharge No Prior management includes - Associated conditions history of penile trauma No CAD No - does have dyslipidemia diabetes No erectile dysfunction No hypertension yes peripheral vascular disease No Investigations - 11/11 T 165, 05/11 230 LH 1.3 Therapeutic plan continue conservative therapy PFSH Medical History History of adenomatous polyp of colon Ascending aortic aneurysm Acute appendicitis Anxiety Obesity (BMI 30-39.9) Insomnia GERD without esophagitis Impacted cerumen, left ear Tubular adenoma of colon Vitamin D deficiency Dyslipidemia Essential hypertension Family history of coronary artery disease Surgical History S/P appendectomy History of colonoscopy with polypectomy Family History Mother Diabetes Heart problem CVA (cerebral vascular accident) Father Heart problem Social History Household Members: Spouse Housing: House Do you presently have visiting nurse or other home services: No Alcohol intake: current Alcohol intake frequency: holidays/special occasions only Patient Tobacco Use Status: Former Tobacco user e-Cigarette/Vaping Use: Never Used Substance Use Type: Marijuana Advance Directives Date on File: 08/22/20 service: No Current occupational status: retired Cognitive needs: No Hearing needs: No Vision needs: Yes (glasses) Review of Systems Const All systems reviewed & are unremarkable except as noted in HPI and below Reports no additional complaints Resp Reports no additional complaints GI Reports no additional complaints Reports as per HPI Musc Reports no additional complaints Physical Exam Telemedicine evaluation Appropriate responses Regular breathing rate and rhythm HEENT Head: Yes normal to inspection Ears: hearing grossly normal bilaterally Eyes General: appearance normal, both eyes and all related structures Neck Neck: Yes normal visual inspection Chest Chest palpation & inspection: normal inspection of the chest Resp Effort & Inspection: normal respiratory effort and able to speak in complete sentences Telehealth Telehealth Location of provider rendering services: practice address Location of patient: address on file Patient Identification confirmed using: Name, : Yes Telehealth method: voice only Patient verbally consented to treatment: Yes Patient verbally consented to billing insurance company: Yes Patient informed of any privacy concerns related to visit: Yes Assessment & Plan Assessment & Plan (1) Erectile dysfunction due to arterial insufficiency: Code(s): N52.01 - Erectile dysfunction due to arterial insufficiency Category: Medical Plan Six-month follow-up lab work office Refill tadalafil Orders: Orders Prostate Specific Antigen 03/08/25 Z12.5 - Encounter for screening for malignant neoplasm of prostate Prostate Specific Antigen 03/10/25 Z12.5 - Encounter for screening for malignant neoplasm of prostate Testosterone, Total 6 Months N52.01 - Erectile dysfunction due to arterial insufficiency Patient Instructions: This note is constructed using voice recognition software. While every effort has been made to ensure accuracy clay roaster errors may have been included. Imaging studies, laboratory and physical exam results were discussed and reviewed in detail. No major barriers to patient understanding were identified. An opportunity to ask questions regarding the treatment plan was provided. All questions were answered. The patient expressed understanding and agreement with the above treatment plan. The patient is aware they should contact our office by phone for worsening of their current condition or the appearance of new urologic symptoms. Compliance is encouraged with any medications and followup testing that is ordered. It is a privilege to participate in the urologic care of your patient. If you have any questions or concerns regarding treatment for the above conditions, or other urologic issues, please do not hesitate to contact me. The office telephone contact is [phone]. Sincerely, Dr Mukesh Campbell MD, [facility] - Urology Compassionate Specialist Care for the Genitourinary System Coding Level of Care Code Tele Est Pt Level 3 (07756) Complex EM visit Add On G2211 Diagnoses Erectile dysfunction due to arterial insufficiency N52.01
== END 2025-03-18 11:17 | disposition home or self-care (01) ==
LOC: HO.HUSH 09:04
PROVIDERS: PCP Internal Medicine; Visit Provider Urology
DX: N52.01 Erectile dysfunction due to arterial insufficiency (principal)
CPT/HCPCS: 99213

== ENCOUNTER 2025-03-22 10:45 | Outpatient (AMB) | payer BC, SELFPAY ==
[2025-03-22 10:56] VITALS: BP 132/86; PULSE 94; O2SAT 90; BMI 35.0
--- NOTE | 2025-03-22 10:56 | A.OFFPC_ITS ---
Vital Signs 03/22/25 10:56 Height 5 ft 10 in Weight 244 lb BMI 35.0 BP 132/86 Blood Pressure Location Lt brachial Position Sitting Pulse 94 Pulse Source Pulse Oximeter Pulse Oximetry (%) 90 L Oxygen Delivery Method Room Air Intake Visit Reasons: hyperlipidemia, HTN, IFG, anxiety Event Technician Required: No Accompanied by: Self / Same As Patient Allergies No Known Allergies Allergy (Verified 03/22/25 11:16) Medication List - Last Reconciled 03/22/25 by Oziel Elliott MD escitalopram oxalate 10 mg PO DAILY lisinopril 30 mg PO DAILY tadalafil 5 mg PO DAILY 90 days Tobacco use date assessed: 03/22/25 Fall risk assessment: No Falls in past year Last assessed Fall Risk: 03/22/25 Dental Screening Dental Screen Date: 03/22/25 Did you have a dental visit in the last 12 months?: Yes Did you have a dental problem in the last 6 months where you did not have access to dental care?: No Was dental information given to patient?: Patient has dentist HPI hyperlipidemia, HTN, IFG, anxiety HPI Details Patient comes in today for his follow up visit States that he feels okay He denies any headaches or dizziness Denies any chest pains, no SOB No nausea/vomiting, no abdominal pain No change in bowel habits noted He had his follow up labs done a couple of weeks ago - to discuss his results [facility] Medical History History of adenomatous polyp of colon Ascending aortic aneurysm Acute appendicitis Anxiety Obesity (BMI 30-39.9) Insomnia GERD without esophagitis Impacted cerumen, left ear Tubular adenoma of colon Vitamin D deficiency Dyslipidemia Essential hypertension Family history of coronary artery disease Surgical History S/P appendectomy History of colonoscopy with polypectomy Family History Mother Diabetes Heart problem CVA (cerebral vascular accident) Father Heart problem Social History Household Members: Spouse Housing: House Do you presently have visiting nurse or other home services: No Alcohol intake: current Alcohol intake frequency: holidays/special occasions only Patient Tobacco Use Status: Former Tobacco user e-Cigarette/Vaping Use: Never Used Substance Use Type: Marijuana Advance Directives Date on File: 08/22/20 service: No Current occupational status: retired Cognitive needs: No Hearing needs: No Vision needs: Yes (glasses) Questionnaire PHQ-9 Over the last 2 weeks, how often have you been bothered by any of the following problems? 1. Little interest or pleasure in doing things: not at all 2. Feeling down, depressed, or hopeless: not at all 3. Trouble falling or staying asleep, or sleeping too much: not at all 4. Feeling tired or having little energy: not at all 5. Poor appetite or overeating: not at all 6. Feeling bad about yourself - or that you are a failure or have let yourself or your family down: not at all 7. Trouble concentrating on things, such as reading the newspaper or watching television: not at all 8. Moving or speaking so slowly that other people could have noticed. Or the opposite - being so fidgety or restless that you have been moving around a lot more than usual: not at all 9. Thoughts that you would be better off or of hurting yourself in some way: not at all Total score: 0 Depression Screening Interpretation: Negative Depression Screening Done: Yes 58741 - PHQ-9 Billing: Yes Source: Developed by Drs. Mau Huddleston, Mayra Wiseman, Roge Fink and colleagues, with an educational karen from [employer]. Thrive Questionnaire Date Thrive assessed: 03/22/25 I am a: Patient What is your living situation today?: I have a steady place to live Within the past 12 months, did the food you bought not last and you didn't have the money to get more?: Never true Within the past 12 months, did you worry whether your food would run out before you got money to buy more?: Never true Do you have trouble paying for medicines?: No Do you have trouble getting transportation to medical appointments?: No Do you have trouble paying your heating and electricity bill?: No Do you have trouble taking care of your child, family member or friend?: No Do you have trouble with day-to-day activities such as bathing, preparing meals, shopping, managing finances, etc.?: No Are you currently unemployed and looking for a job?: No Are you interested in more education?: No Please select the resources that you would like help with: None Currently or been in a relationship where the following occur: I choose not to answer THRIVE Score: 0 AUDIT C Alcohol Use Questionnaire (AUDIT-C) 1. How often do you have a drink containing alcohol?: Monthly or less 2. How many drinks containing alcohol do you have on a typical day when you are drinking?: 1 or 2 3. How often do you have six or more drinks on one occasion?: Never Total Score: 1 Score Reviewed/Action Taken: Yes VICK-7 AMB Questionnaire VICK-7 Date VICK - 7 assessed: 03/22/25 Feeling nervous, anxious, or on edge: 0 = Not at all Not being able to stop or control worryin = Not at all Worrying too much about different things: 0 = Not at all Trouble relaxin = Not at all Being so restless that it is hard to sit still: 0 = Not at all Becoming easily annoyed or irritable: 0 = Not at all Feeling afraid as if something awful might happen: 0 = Not at all Total VICK-7 score (0-4 normal; 5-9 mild; 10-14 moderate; 15-21 severe): 0 Source: Developed by Drs. Mau Huddleston, Mayra Wiseman, Roge Fink and colleagues, with an educational karen from [employer]. Review of Systems Const Denies chills, Denies fatigue, Denies fever(s) and Denies headache(s) ENT Denies dysphagia, Denies dizziness, Denies otalgia, Denies headache(s), Denies neck pain, Denies odynophagia and Denies sore throat Card Denies chest pain, Denies irregular heart rhythm, Denies palpitations and Denies dyspnea Resp Denies chest congestion, Denies cough and Denies dyspnea GI Denies abdominal pain, Denies constipation, Denies dysphagia, Denies heartburn, Denies diarrhea, Denies nausea, Denies odynophagia and Denies vomiting Denies difficulty urinating, Denies dysuria, Denies urinary frequency and Denies urinary urgency Musc Denies back pain, Denies arthralgias and Denies neck pain Skin/Breast Denies rash Neuro Denies dizziness, Denies headache(s) and Denies paresthesias Endo Denies fatigue and Denies palpitations Physical exam (Primary Care) Vital Signs: Last Vital Signs Pulse 94 03/22/25 10:56 BP 132/86 03/22/25 10:56 Pulse Ox 90 L 03/22/25 10:56 Oxygen Delivery Method Room Air 03/22/25 10:56 BMI result Body Mass Index 35.0 Tobacco/Smoking Status: Tobacco use Status Tobacco use date assessed 03/22/25 03/22/25 11:00 Patient Tobacco Use Status Former Tobacco user 03/22/25 11:00 e-Cigarette/Vaping Use Never Used 03/22/25 11:00 PHQ-9: PHQ-9 Score PHQ-9: Total score 0 03/22/25 11:00 Depression Screening Interpretation: Negative Thrive Assessment: Date of Thrive Assessment Date Thrive assessed 03/22/25 03/22/25 11:00 Currently or been in a relationship where the following occur: I choose not to answer Const General: no acute distress and alert HENMT Ears: TM's normal bilaterally and EAC's normal Throat: Yes posterior oropharynx normal and Yes tonsils normal (no TP congestion) Neck Neck: Yes supple and No lymphadenopathy Thyroid: Thyroid normal Resp Auscultation: clear to auscultation bilaterally, no rales and no wheezes Cardio Rate: regular rate Rhythm: regular rhythm Heart sounds: no murmurs GI Palpation (GI): Soft to palpation and nontender Auscultation: normal bowel sounds General: Yes no CVA tenderness Back/Spine/Pelvis Back: no CVA tenderness Thoracic/Lumbar Spine: No lumbar spinal tenderness Skin Rashes: no rashes Extrem General: Yes no clubbing, cyanosis or edema Results Reviewed Results Reviewed: Laboratory Tests 03/08/25 03/08/25 06:42 06:45 WBC 6.8 Hgb 14.2 Hct 43.8 Plt Count 266 Sodium 137 Potassium 4.3 Creatinine 1.03 Estimated GFR > 60 Fasting Glucose 100 H Hemoglobin A1c % 5.8 Calcium 9.6 AST 19 ALT 26 Triglycerides 113 Cholesterol 198 LDL Cholesterol, Calc 136 H HDL Cholesterol 40 L Prostate Specific Ag 1.65 25-OH Vitamin D Total 31.7 TSH 2.44 Ur Specific [place] 1.020 Urine Protein Negative Urine Glucose (UA) Negative Urine Blood Negative Urine Nitrite Negative Ur Leukocyte Esterase Negative Coding Level of Care Code Est Pt Level 4 (68026) Diagnoses Essential hypertension I10 Dyslipidemia E78.5 GERD without esophagitis K21.9 Vitamin D deficiency E55.9 Aneurysm of ascending aorta without rupture I71.21 Presence of rupture: without rupture Hepatic cyst K76.89 Peyronie's disease N48.6 Erectile dysfunction due to arterial insufficiency N52.01 Insomnia, unspecified type G47.00 Insomnia type: unspecified Anxiety F41.9 Obesity (BMI 30-39.9) E66.9 Additional Codes PHQ-9 - 03198 - PHQ-9 Billing: Yes ([id number]) Assessment & Plan Assessment & Plan (1) Essential hypertension: Code(s): I10 - Essential (primary) hypertension Category: Medical Plan: Reinforced low sodium diet - goal is systolic BP of 120 mm or less Continue Lisinopril 30 mg QD (2) Dyslipidemia: Comment: no meds, being watched Code(s): E78.5 - Hyperlipidemia, unspecified Category: Medical Plan: Results of his labs done a couple of weeks ago reviewed and discussed with patient Reinforced low cholesterol diet Will recheck his labs and fasting lipids in 4 months for follow up (3) GERD without esophagitis: Code(s): K21.9 - Gastro-esophageal reflux disease without esophagitis Category: Medical Plan: Dietary restrictions reinforced Patient takes his Omeprazole only as needed when his symptoms flare up (4) Vitamin D deficiency: Code(s): E55.9 - Vitamin D deficiency, unspecified Category: Medical Plan: Corrected - his Vitamin D level is normal on his recent labs (5) Ascending aortic aneurysm: Code(s): I71.2 - Thoracic aortic aneurysm, without rupture Category: Medical Qualifiers: Presence of rupture: without rupture Qualified Code(s): I71.21 - Aneurysm of the ascending aorta, without rupture Plan: Chest CTA done on 06/20/2021 showed an ascending thoracic aortic aneurysm with the maximum diameter measuring 4.0 x 4.5 cm Echocardiogram done in 11/2021 revealed normal LV systolic function with grade 1 diastolic dysfunction, trivial aortic regurgitation, dilated ascending aorta at 4.4 cm that is unchanged from before, normal RV systolic pressure?and no pericardial effusion Echocardiogram done in September 2022 revealed no changes - ascending aorta is again mildly dilated at 4.3 cm Repeat echocardiogram done on 11/08/2023 revealed that the left ventricular systolic function is normal and the calculated ejection fraction is 58% by biplane method. There is no obvious valvular pathology seen on this study. There is moderate dilatation of the ascending aorta measuring 4.60 cm, which has increased slightly from last year He recently had another echocardiogram done a few weeks ago in June 2024 - echo showed normal LV ejection fraction of 60-65% with impaired relaxation filling pattern, normal cardiac valvular doppler, moderately dilated ascending aorta at 4.5 cm with normal RV systolic pressure Have emphasized again to patient strict BP control to keep his aneurysm from progressing Follow up with cardiology as scheduled for continuing surveillance - he has a follow up echocardiogram scheduled for this on 04/20/2025 (6) Hepatic cyst: Code(s): K76.89 - Other specified diseases of liver Category: Medical Plan: Hepatic US done in 12/2020 revealed a 1.5 cm hepatic cyst - confirmed on CTA done in 05/2021 Abdominal US done in July 2022 revealed again the small hepatic cyst seen previously on US and CT with no changes Will continue to monitor with US regularly - will recheck his abdominal US later this year for follow up (7) Peyronie's disease: Code(s): N48.6 - Induration penis plastica Category: Medical Plan: Follow up with urology as scheduled (8) Erectile dysfunction due to arterial insufficiency: Code(s): N52.01 - Erectile dysfunction due to arterial insufficiency Category: Medical Plan: Continue Tadalafil 5 mg QD; he was previously also on Pentoxifylline ER 400 mg BID but this appears to have been discontinued recently Follow up with urology as scheduled (9) Insomnia: Code(s): G47.00 - Insomnia, unspecified Category: Medical Qualifiers: Insomnia type: unspecified Qualified Code(s): G47.00 - Insomnia, unspecified Plan: Sleep hygiene reinforced Patient states that he has not needed to take his Trazodone lately; states that he did not really take it much or often when he was started on it last year (10) Anxiety: Code(s): F41.9 - Anxiety disorder, unspecified Category: Medical Plan: Continue Escitalopram 10 mg QD (11) Obesity (BMI 30-39.9): Code(s): E66.9 - Obesity, unspecified Category: Medical Plan: Reinforced diet/exercise as tolerated/lose weight - he has been able to lose a few pounds since his last visit Plan Follow up in 4 months Orders: Orders TSH reflex Free T4 4 Months E78.00 - Pure hypercholesterolemia, unspecified Vitamin D 25-OH Total 4 Months E55.9 - Vitamin D deficiency, unspecified Complete Blood Count Auto Diff 4 Months D64.9 - Anemia, unspecified Comprehensive [place]. Panel Fast 4 Months E78.00 - Pure hypercholesterolemia, unspecified Lipid Panel 4 Months E78.00 - Pure hypercholesterolemia, unspecified UA CC w/rflx Micro + Cult 4 Months R30.0 - Dysuria
== END 2025-03-22 11:27 | disposition home or self-care (01) ==
LOC: HO.HMCH 10:47
PROVIDERS: PCP Internal Medicine; Visit Provider Internal Medicine
DX: I10 Essential (primary) hypertension (principal); E78.5 Hyperlipidemia, unspecified; E66.9 Obesity, unspecified; Z68.35 Body mass index [BMI] 35.0-35.9, adult; K21.9 Gastro-esophageal reflux disease without esophagitis; E55.9 Vitamin D deficiency, unspecified; I71.21 Aneurysm of the ascending aorta, without rupture; K76.89 Other specified diseases of liver; N48.6 Induration penis plastica; N52.01 Erectile dysfunction due to arterial insufficiency; G47.00 Insomnia, unspecified; F41.9 Anxiety disorder, unspecified

== ENCOUNTER → 2025-03-22 10:45 | Outpatient (BNVA) | payer BC, SELFPAY | PROVIDERS: PCP Internal Medicine; Visit Provider Internal Medicine | DX: I10 Essential (primary) hypertension (principal); F41.9 Anxiety disorder, unspecified; K21.9 Gastro-esophageal reflux disease without esophagitis; E55.9 Vitamin D deficiency, unspecified; I71.21 Aneurysm of the ascending aorta, without rupture; K76.89 Other specified diseases of liver; N48.6 Induration penis plastica; N52.01 Erectile dysfunction due to arterial insufficiency; G47.00 Insomnia, unspecified; E66.9 Obesity, unspecified; E78.00 Pure hypercholesterolemia, unspecified; R30.0 Dysuria; Z68.35 Body mass index [BMI] 35.0-35.9, adult | CPT/HCPCS: 96127 ==

== ENCOUNTER → 2025-04-20 08:51 | Outpatient (REF) | payer BC, SELFPAY ==
--- NOTE | 2025-04-20 08:56 | CA_ITS ---
Transthoracic Echocardiogram Patient (Last, First, Middle): Tank Ledezma, Gender: Male Date of : 1960 Age: 64 Procedure Date: 04/20/2025 Procedure Type: Transthoracic Echocardiogram Location: OP Height: 177.8 cm Weight: 106.6 kg BSA: 2.24 m2 Heart Rate: bpm BP: 130 / 84 mmHg Supervisor Evaporator: TO/RC Referring MD: Sean Joiner MD Symptoms: I71.21 - Aneurysm of the ascending aorta, without rupture Study Quality: Adequate Conclusions: - Moderately dilated ascending aorta at 4.6 cm, unchanged from before Findings Great Vessels There is moderate dilatation of the ascending aorta and mild dilatation of the aortic arch. Prior Study Comparison No significant change compared to prior study dated: 07/02/2024. Measurements Great Vessels Aorta Ao Asc: 4.60 2.1-3.4 cm Ao Arch: 4.30 Updated in Other Vendor System with Status of Final Leobardo Shah MD electronically signed on 04/21/2025 11:14:21 AM with status of Final
== END ==
LOC: HO.CARD 08:51
PROVIDERS: PCP Internal Medicine; Visit Provider Internal Medicine
DX: I71.21 Aneurysm of the ascending aorta, without rupture (principal)
CPT/HCPCS: 93308

== ENCOUNTER → 2025-04-20 08:56 | Outpatient (BNV) | payer BC, SELFPAY | PROVIDERS: PCP Internal Medicine; Visit Provider Internal Medicine Cardiovascular Disease | DX: I71.21 Aneurysm of the ascending aorta, without rupture (principal); I71.22 Aneurysm of the aortic arch, without rupture | CPT/HCPCS: 93308 ==

== ENCOUNTER 2025-05-12 09:38 | Outpatient (AMB) | payer BC, SELFPAY ==
--- NOTE | 2025-05-12 09:52 | MHC.OFFVIS ---
Vital Signs 05/12/25 09:53 Height 5 ft 10 in Weight 240 lb 4.862 oz BMI 34.5 BP 112/62 Blood Pressure Location Lt brachial Position Sitting Pulse 86 Pulse Source Pulse Oximeter Intake Visit Reasons: 6m follow up Allergies No Known Allergies Allergy (Verified 03/22/25 11:16) Medication List - Last Reconciled 05/12/25 by Sean Joiner MD escitalopram oxalate 10 mg PO DAILY lisinopril 30 mg PO DAILY tadalafil 5 mg PO DAILY 90 days HPI Comments Details: Tank returns for follow-up regarding ascending aortic aneurysm. Clinically, he states he is doing good. No cardiac symptoms whatsoever. [facility] Medical History History of adenomatous polyp of colon Ascending aortic aneurysm Acute appendicitis Anxiety Obesity (BMI 30-39.9) Insomnia GERD without esophagitis Impacted cerumen, left ear Tubular adenoma of colon Vitamin D deficiency Dyslipidemia Essential hypertension Family history of coronary artery disease Surgical History S/P appendectomy History of colonoscopy with polypectomy Family History Mother Diabetes Heart problem CVA (cerebral vascular accident) Father Heart problem Social History Household Members: Spouse Housing: House Do you presently have visiting nurse or other home services: No Alcohol intake: current Alcohol intake frequency: holidays/special occasions only Patient Tobacco Use Status: Former Tobacco user e-Cigarette/Vaping Use: Never Used Substance Use Type: Marijuana Advance Directives Date on File: 08/22/20 service: No Current occupational status: retired Cognitive needs: No Hearing needs: No Vision needs: Yes (glasses) Review of Systems Const Denies weakness ENT Denies dizziness Card Denies chest pain, Denies chest pain with activity, Denies syncope, Denies rapid heart rate, Denies pedal edema, Denies edema, Denies leg edema, Denies lightheadedness, Denies palpitations, Denies dyspnea, Denies dyspnea on exertion and Denies orthopnea Resp Denies cough, Denies dyspnea and Denies dyspnea on exertion GI Denies hematochezia and Denies change in stool character Musc Denies abnormal gait, Denies muscle cramps, Denies muscle weakness, Denies numbness, Denies radiating pain into limb and Denies tingling Neuro Denies abnormal gait, Denies dizziness, Denies syncope, Denies numbness, Denies tingling and Denies weakness Endo Denies palpitations Physical Exam Vital Signs: Last Vital Signs Pulse 86 05/12/25 09:53 BP 112/62 05/12/25 09:53 BMI result Body Mass Index 34.5 Const General: comfortable and no acute distress Orientation/consciousness: patient oriented x3 HEENT Other: Unremarkable Head: Yes normal to inspection Neck Neck: Yes normal visual inspection Chest Chest palpation & inspection: normal inspection of the chest Resp Auscultation: clear to auscultation bilaterally Cardio Palpation: normal PMI Heart sounds: S1 normal heart sound present, S2 normal heart sound present, no gallops, no murmurs and no rubs GI Palpation (GI): Soft to palpation Back/Spine/Pelvis Other: unremarkable Skin General skin exam: no rashes or lesions noted Neuro General: patient oriented x3 Extrem General: Yes normal to inspection Psych Mental Status: mental status grossly normal Assessment & Plan Assessment & Plan (1) Ascending aortic aneurysm: Code(s): I71.2 - Thoracic aortic aneurysm, without rupture Category: Medical Qualifiers: Presence of rupture: without rupture Qualified Code(s): I71.21 - Aneurysm of the ascending aorta, without rupture (2) Essential hypertension: Code(s): I10 - Essential (primary) hypertension Category: Medical Plan Cardiac studies reviewed. In the most recent echocardiogram, ascending aortic size 4.6 cm. In the study from 06/2024, 4.5 cm. Prior to that, in 10/2023, 4.6 cm. In 2021, reported 4.4 cm. In the CTA from 12/2023, ascending aortic size 4.7/4.3 cm. In the CTA 2020- aortic root 4 x 4.5 cm; distal ascending aorta measured 4.3 x 4.3 cm. Proximal ascending was 2.8 x 3.3. Overall, this seems stable. We will recheck in one year. Myocardial perfusion imaging study from 2020-normal perfusion. With regard to blood pressure, on lisinopril. Stable. Discussion Notes I discussed with the patient that his aorta remains stable and no immediate intervention is necessary. I recommended regular monitoring and advised him to inform his family for potential screening. We agreed on a follow-up in one year unless symptoms arise. Patient was informed and verbally consented to the use of an ambient scribe for clinic note documentation during this visit. Orders: Orders CA echo transthoracic complete 1 Year I71.21 - Aneurysm of the ascending aorta, without rupture Patient Instructions: - Monitor for any new symptoms such as chest pain or pressure and report them immediately. - Inform family members about the condition for potential screening. - Follow up in one year for a repeat echocardiogram unless symptoms develop sooner. Coding Level of Care Code Est Pt Level 4 (45109) Complex EM visit Add On G2211 Diagnoses Aneurysm of ascending aorta without rupture I71.21 Presence of rupture: without rupture Essential hypertension I10
[2025-05-12 09:53] VITALS: BP 112/62; PULSE 86; BMI 34.5
== END 2025-05-12 10:11 | disposition home or self-care (01) ==
LOC: HO.HCS 09:39
PROVIDERS: PCP Internal Medicine; Visit Provider Internal Medicine
DX: I71.21 Aneurysm of the ascending aorta, without rupture (principal); I10 Essential (primary) hypertension
CPT/HCPCS: 99214

== ENCOUNTER 2025-08-21 07:04 | Outpatient (REF) | payer BC, SELFPAY ==
[2025-08-21 07:21] LABS: MANUAL DIFF FLAG NO
[2025-08-21 07:40] LABS: Hematocrit 44.5 % (42.0-52.0); Hemoglobin 14.5 g/dl (14.0-18.0); Imm Gran Abs Auto 0.02 X10*3/uL (0.00-0.03); Imm Gran Pct Auto 0.3 % (0.0-0.4); Lymphocytes Absolute Auto 2.2 X10*3/uL (1.2-4.9); Mean Corpuscular HGB Conc 32.6 g/dl (31.0-36.0); Mean Corpuscular Hemoglobin 31.1 pg (27.0-33.0); Mean Corpuscular Volume 95.5 fL (80.0-98.0); NRBC Abs Auto 0.000 X10*3/uL (0.0-0.012); NRBC Pct Auto 0.0 /100WBC (0.0-0.2); Platelet Count 232 X10*3/uL (160-400); Red Blood Count 4.66 X10*6/uL (4.60-5.80); White Blood Count 6.8 X10*3/uL (4.8-10.8)
[2025-08-21 07:48] LABS: Appearance Urine Clear; Glucose Urine UA Negative (Negative); PH 5.5 (5.0-9.0); Specific Gravity - Urine 1.025 (1.005-1.025); UMIC TRIGGER UACC YES
[2025-08-21 08:24] LABS: Alanine Aminotransferase 28 U/L (0-40); Albumin Level 4.5 g/dL (3.5-5.0); Alkaline Phosphatase 68 U/L (39-117); Anion Gap 12 (12-20); Aspartate Amino Transferase 25 U/L (5-37); Blood Urea Nitrogen 16 mg/dL (9-16); Calcium 9.3 mg/dL (8.4-10.2); Carbon Dioxide 29 mmol/L (22-29); Chloride 102 mmol/L (96-108); Cholesterol 205 mg/dL (<200); Estimated Glomerular Filt Rate 59; HDL Cholesterol 41 mg/dL (>40); Potassium 4.4 mmol/L (3.3-5.1); Sodium 139 mmol/L (135-145); Total Protein 7.4 g/dL (6.5-8.0); Triglycerides 112 mg/dL (<150)
== END 2025-08-21 07:05 | disposition home or self-care (01) ==
LOC: HO.LAB 07:04
PROVIDERS: PCP Internal Medicine; Visit Provider Internal Medicine
DX: D64.9 Anemia, unspecified (principal); E78.00 Pure hypercholesterolemia, unspecified; E55.9 Vitamin D deficiency, unspecified; R30.0 Dysuria
CPT/HCPCS: 36415; 80053; 80061; 81001; 82306; 84443; 85025

== ENCOUNTER 2025-08-24 14:38 | Outpatient (AMB) | payer BC, SELFPAY ==
[2025-08-24 14:45] VITALS: BP 120/76; PULSE 92; O2SAT 97; BMI 35.2
--- NOTE | 2025-08-24 14:45 | A.OFFPC_ITS ---
Vital Signs 08/24/25 14:45 Height 5 ft 10 in Weight 245 lb 2 oz BMI 35.2 BP 120/76 Blood Pressure Location Lt brachial Position Sitting Pulse 92 Pulse Source Pulse Oximeter Pulse Oximetry (%) 97 Oxygen Delivery Method Room Air Intake Visit Reasons: ascending aortic aneurysm, hyperlipidemia, HTN Black Off Worker Required: No Accompanied by: Self / Same As Patient Allergies No Known Allergies Allergy (Verified 09/19/25 17:07) Medication List - Last Reconciled 08/24/25 by Oziel Elliott MD escitalopram oxalate 10 mg PO DAILY lisinopril 30 mg PO DAILY tadalafil 5 mg PO DAILY 90 days Tobacco use date assessed: 08/24/25 Fall risk assessment: No Falls in past year Last assessed Fall Risk: 08/24/25 Dental Screening Dental Screen Date: 08/24/25 Did you have a dental visit in the last 12 months?: Yes Did you have a dental problem in the last 6 months where you did not have access to dental care?: No Was dental information given to patient?: Patient has dentist HPI ascending aortic aneurysm, hyperlipidemia, HTN HPI Details Patient is a 65-year-old male presenting for a follow-up visit for management of chronic conditions States that he currently feels okay He denies any headaches or dizziness Denies any chest pains, no SOB No nausea/vomiting, no abdominal pain No change in bowel habits noted He had his follow up labs done a few days ago - to discuss his results Below are some of the main points/issues discussed during his appointment today - Aortic Aneurysm: An ultrasound of the heart in April showed the aneurysm size was unchanged. - Hyperlipidemia: The patient has never taken cholesterol medication. - His LDL cholesterol was 119 in 2020 bu t has since risen, peaking at 156 last year and is currently 142 - this needs to improve if he wishes to continue NOT taking any Rx for his cholesterol - Prediabetes: His last A1c was 5.8 and his blood sugar is currently 100. - His kidney and liver lab results are o bree. - Weight and Diet: The patient has gaine d at least 5 pounds, which he attributes to reintroducing rice and bread into his diet about a month ago. - Other Medical History: The patient rec ently received a refill for his anxiety medication. [facility] Medical History Pure hypercholesterolemia History of adenomatous polyp of colon Ascending aortic aneurysm Acute appendicitis Anxiety Obesity (BMI 30-39.9) Insomnia GERD without esophagitis Impacted cerumen, left ear Tubular adenoma of colon Vitamin D deficiency Dyslipidemia Essential hypertension Family history of coronary artery disease Surgical History S/P appendectomy History of colonoscopy with polypectomy Family History Mother Diabetes Heart problem CVA (cerebral vascular accident) Father Heart problem Social History Household Members: Spouse Housing: House Do you presently have visiting nurse or other home services: No Alcohol intake: current Alcohol intake frequency: holidays/special occasions only Patient Tobacco Use Status: Former Tobacco user e-Cigarette/Vaping Use: Never Used Substance Use Type: Marijuana Advance Directives Date on File: 08/22/20 service: No Current occupational status: retired Cognitive needs: No Hearing needs: No Vision needs: Yes (glasses) Questionnaire PHQ-9 Over the last 2 weeks, how often have you been bothered by any of the following problems? 1. Little interest or pleasure in doing things: not at all 2. Feeling down, depressed, or hopeless: not at all 3. Trouble falling or staying asleep, or sleeping too much: not at all 4. Feeling tired or having little energy: not at all 5. Poor appetite or overeating: not at all 6. Feeling bad about yourself - or that you are a failure or have let yourself or your family down: not at all 7. Trouble concentrating on things, such as reading the newspaper or watching television: not at all 8. Moving or speaking so slowly that other people could have noticed. Or the opposite - being so fidgety or restless that you have been moving around a lot more than usual: not at all 9. Thoughts that you would be better off or of hurting yourself in some way: not at all Total score: 0 Depression Screening Interpretation: Negative Depression Screening Done: Yes 36646 - PHQ-9 Billing: Yes Source: Developed by Mayra Null.W. Bowen, Roge Fink and colleagues, with an educational karen from [employer]. Thrive Questionnaire Date Thrive assessed: 08/24/25 I am a: Patient What is your living situation today?: I have a steady place to live Within the past 12 months, did the food you bought not last and you didn't have the money to get more?: Never true Within the past 12 months, did you worry whether your food would run out before you got money to buy more?: Never true Do you have trouble paying for medicines?: No Do you have trouble getting transportation to medical appointments?: No Do you have trouble paying your heating and electricity bill?: No Do you have trouble taking care of your child, family member or friend?: No Do you have trouble with day-to-day activities such as bathing, preparing meals, shopping, managing finances, etc.?: No Are you currently unemployed and looking for a job?: No Are you interested in more education?: No Please select the resources that you would like help with: None Currently or been in a relationship where the following occur: I choose not to answer THRIVE Score: 0 AUDIT C Alcohol Use Questionnaire (AUDIT-C) 1. How often do you have a drink containing alcohol?: Monthly or less 2. How many drinks containing alcohol do you have on a typical day when you are drinking?: 1 or 2 3. How often do you have six or more drinks on one occasion?: Never Total Score: 1 Score Reviewed/Action Taken: Yes VICK-7 AMB Questionnaire VICK-7 Date VICK - 7 assessed: 08/24/25 Feeling nervous, anxious, or on edge: 0 = Not at all Not being able to stop or control worryin = Not at all Worrying too much about different things: 0 = Not at all Trouble relaxin = Not at all Being so restless that it is hard to sit still: 0 = Not at all Becoming easily annoyed or irritable: 0 = Not at all Feeling afraid as if something awful might happen: 0 = Not at all Total VICK-7 score (0-4 normal; 5-9 mild; 10-14 moderate; 15-21 severe): 0 Source: Developed by Mayra Null Kurt Kroenke and colleagues, with an educational karen from [employer]. Review of Systems Const Denies chills, Denies fatigue, Denies fever(s) and Denies headache(s) ENT Denies dysphagia, Denies dizziness, Denies otalgia, Denies headache(s), Denies neck pain, Denies odynophagia and Denies sore throat Card Denies chest pain, Denies irregular heart rhythm, Denies palpitations and Denies dyspnea Resp Denies chest congestion, Denies cough and Denies dyspnea GI Denies abdominal pain, Denies constipation, Denies dysphagia, Denies heartburn, Denies diarrhea, Denies nausea, Denies odynophagia and Denies vomiting Denies difficulty urinating, Denies dysuria, Denies urinary frequency and Denies urinary urgency Musc Denies back pain, Denies arthralgias and Denies neck pain Skin/Breast Denies rash Neuro Denies dizziness, Denies headache(s) and Denies paresthesias Endo Denies fatigue and Denies palpitations Physical exam (Primary Care) Vital Signs: Last Vital Signs Pulse 92 08/24/25 14:45 BP 120/76 08/24/25 14:45 Pulse Ox 97 08/24/25 14:45 Oxygen Delivery Method Room Air 08/24/25 14:45 BMI result Body Mass Index 35.2 Tobacco/Smoking Status: Tobacco use Status Tobacco use date assessed 08/24/25 08/24/25 14:49 Patient Tobacco Use Status Former Tobacco user 08/24/25 14:49 e-Cigarette/Vaping Use Never Used 08/24/25 14:49 PHQ-9: PHQ-9 Score PHQ-9: Total score 0 08/24/25 15:34 Depression Screening Interpretation: Negative Thrive Assessment: Date of Thrive Assessment Date Thrive assessed 08/24/25 08/24/25 14:49 Currently or been in a relationship where the following occur: I choose not to answer Const General: no acute distress and alert HENMT Ears: TM's normal bilaterally and EAC's normal Throat: Yes posterior oropharynx normal and Yes tonsils normal (no TP congestion) Neck Neck: Yes supple and No lymphadenopathy Thyroid: Thyroid normal Resp Auscultation: clear to auscultation bilaterally, no rales and no wheezes Cardio Rate: regular rate Rhythm: regular rhythm Heart sounds: no murmurs GI Palpation (GI): Soft to palpation and nontender Auscultation: normal bowel sounds General: Yes no CVA tenderness Back/Spine/Pelvis Back: no CVA tenderness Thoracic/Lumbar Spine: No lumbar spinal tenderness Skin Rashes: no rashes Extrem General: Yes no clubbing, cyanosis or edema Results Reviewed Results Reviewed: Laboratory Tests 08/21/25 08/21/25 07:19 07:22 WBC 6.8 Hgb 14.5 Hct 44.5 Plt Count 232 Sodium 139 Potassium 4.4 Creatinine 1.23 Estimated GFR 59 Fasting Glucose 100 H Calcium 9.3 AST 25 ALT 28 Triglycerides 112 Cholesterol 205 H LDL Cholesterol, Calc 142 H HDL Cholesterol 41 25-OH Vitamin D Total 28.5 L TSH 2.73 Ur Specific [place] 1.025 Urine Protein Negative Urine Glucose (UA) Negative Urine Blood Trace H Urine Nitrite Negative Ur Leukocyte Esterase Negative Coding Level of Care Code Est Pt Level 4 (25065) Diagnoses Essential hypertension I10 Pure hypercholesterolemia E78.00 GERD without esophagitis K21.9 Vitamin D deficiency E55.9 Aneurysm of ascending aorta without rupture I71.21 Presence of rupture: without rupture Hepatic cyst K76.89 Peyronie's disease N48.6 Erectile dysfunction due to arterial insufficiency N52.01 Insomnia, unspecified type G47.00 Insomnia type: unspecified Anxiety F41.9 Obesity (BMI 30-39.9) E66.9 Additional Codes PHQ-9 - 67600 - PHQ-9 Billing: Yes ([id number]) Assessment & Plan Assessment & Plan (1) Essential hypertension: Code(s): I10 - Essential (primary) hypertension Category: Medical Plan: Reinforced low sodium diet - goal is systolic BP of 120 mm or less Continue Lisinopril 30 mg QD (2) Pure hypercholesterolemia: Code(s): E78.00 - Pure hypercholesterolemia, unspecified Category: Medical Plan: Results of his labs done a few days ago reviewed and discussed with patient - he is cautioned that his cholesterol levels have again increased slightly from previous and his LDL cholesterol is now at 142 mg/dL Reinforced low cholesterol diet Have advised that he needs to get his cholesterol numbers improve significantly if he wishes to continue with diet modification alone Will recheck his labs and fasting lipids in 4 months for follow up (3) GERD without esophagitis: Code(s): K21.9 - Gastro-esophageal reflux disease without esophagitis Category: Medical Plan: Dietary restrictions reinforced Patient takes his Omeprazole only as needed when his symptoms flare up (4) Vitamin D deficiency: Code(s): E55.9 - Vitamin D deficiency, unspecified Category: Medical Plan: He is advised that his Vitamin-D level is slightly low on his recent labs Will have him start back on OTC Vitamin D3 2000 units QD (5) Ascending aortic aneurysm: Code(s): I71.2 - Thoracic aortic aneurysm, without rupture Category: Medical Qualifiers: Presence of rupture: without rupture Qualified Code(s): I71.21 - Ane urysm of the ascending aorta, without rupture Plan: Chest CTA done on 06/20/2021 showed an ascending thoracic aortic aneurysm with the maximum diameter measuring 4.0 x 4.5 cm Echocardiogram done in 11/2021 revealed normal LV systolic function with grade 1 diastolic dysfunction, trivial aortic regurgitation, dilated ascending aorta at 4.4 cm that is unchanged from before, normal RV systolic pressure?and no pericardial effusion Echocardiogram done in September 2022 revealed no changes - ascending aorta is again mildly dilated at 4.3 cm Repeat echocardiogram done on 11/08/2023 revealed that the left ventricular systolic function is normal and the calculated ejection fraction is 58% by biplane method. There is no obvious valvular pathology seen on this study. There is moderate dilatation of the ascending aorta measuring 4.60 cm, which has increased slightly from last year He recently had another echocardiogram done in June 2024 - echo showed normal LV ejection fraction of 60-65% with impaired relaxation filling pattern, normal cardiac valvular doppler, moderately dilated ascending aorta at 4.5 cm with normal RV systolic pressure His most recent echocardiogram done in April 2025 revealed (+) moderately dilated ascending aorta at 4.6 cm, unchanged from before Have emphasized again to patient strict BP control to keep his aneurysm from progressing Follow up with cardiology as scheduled for continuing surveillance (6) Hepatic cyst: Code(s): K76.89 - Other specified diseases of liver Category: Medical Plan: Hepatic US done in 12/2020 revealed a 1.5 cm hepatic cyst - confirmed on CTA done in 05/2021 Abdominal US done in July 2022 revealed again the small hepatic cyst seen previously on US and CT with no changes Will continue to monitor with US regularly - will recheck his abdominal US early next year for follow up (7) Peyronie's disease: Code(s): N48.6 - Induration penis plastica Category: Medical Plan: Follow up with urology as scheduled (8) Erectile dysfunction due to arterial insufficiency: Code(s): N52.01 - Erectile dysfunction due to arterial insufficiency Category: Medical Plan: Continue Tadalafil 5 mg QD; he was previously also on Pentoxifylline ER 400 mg BID but this appears to have been discontinued recently Follow up with urology as scheduled (9) Insomnia: Code(s): G47.00 - Insomnia, unspecified Category: Medical Qualifiers: Insomnia type: unspecified Qualified Code(s): G47.00 - Insomnia, unspecified Plan: Sleep hygiene reinforced Patient states that he has not needed to take his Trazodone lately; states that he did not really take it much or often when he was started on it last year (10) Anxiety: Code(s): F41.9 - Anxiety disorder, unspecified Category: Medical Plan: Continue Escitalopram 10 mg QD (11) Obesity (BMI 30-39.9): Code(s): E66.9 - Obesity, unspecified Category: Medical Plan: Reinforced diet/exercise as tolerated/lose weight Plan Follow up in 4 months Orders: Orders Comprehensive [place]. Panel Fast 4 Months E78.00 - Pure hypercholesterolemia, unspecified Complete Blood Count Auto Diff 4 Months D64.9 - Anemia, unspecified Lipid Panel 4 Months E78.00 - Pure hypercholesterolemia, unspecified
== END 2025-08-24 15:50 | disposition home or self-care (01) ==
LOC: HO.HMCH 14:39
PROVIDERS: PCP Internal Medicine; Visit Provider Internal Medicine
DX: I10 Essential (primary) hypertension (principal); E78.00 Pure hypercholesterolemia, unspecified; E66.9 Obesity, unspecified; Z68.35 Body mass index [BMI] 35.0-35.9, adult; K21.9 Gastro-esophageal reflux disease without esophagitis; E55.9 Vitamin D deficiency, unspecified; I71.21 Aneurysm of the ascending aorta, without rupture; K76.89 Other specified diseases of liver; N48.6 Induration penis plastica; N52.01 Erectile dysfunction due to arterial insufficiency; G47.00 Insomnia, unspecified; F41.9 Anxiety disorder, unspecified

== ENCOUNTER → 2025-08-24 14:38 | Outpatient (BNVA) | payer BC, SELFPAY | PROVIDERS: PCP Internal Medicine; Visit Provider Internal Medicine | DX: I10 Essential (primary) hypertension (principal); I71.9 Aortic aneurysm of unspecified site, without rupture; E78.5 Hyperlipidemia, unspecified; R73.03 Prediabetes; E78.00 Pure hypercholesterolemia, unspecified; K21.9 Gastro-esophageal reflux disease without esophagitis; E55.9 Vitamin D deficiency, unspecified; I71.21 Aneurysm of the ascending aorta, without rupture; K76.89 Other specified diseases of liver; N48.6 Induration penis plastica; N52.01 Erectile dysfunction due to arterial insufficiency; G47.00 Insomnia, unspecified; F41.9 Anxiety disorder, unspecified; E66.9 Obesity, unspecified; Z68.35 Body mass index [BMI] 35.0-35.9, adult | CPT/HCPCS: 96127 ==

== ENCOUNTER 2025-09-01 07:30 | Outpatient (REF) | payer BC, SELFPAY ==
[2025-09-01 08:48] LABS: Prostate Specific Antigen 1.56 ng/mL (<0.05-4.0)
== END 2025-09-01 07:31 | disposition home or self-care (01) ==
LOC: HO.LAB 07:30
PROVIDERS: PCP Internal Medicine; Visit Provider Urology
DX: N52.01 Erectile dysfunction due to arterial insufficiency (principal); Z12.5 Encounter for screening for malignant neoplasm of prostate
CPT/HCPCS: 36415; 84153; 84403

== ENCOUNTER 2025-09-15 08:39 | Outpatient (AMB) | payer BC, SELFPAY ==
--- NOTE | 2025-09-15 08:45 | MHC.OFFVIS ---
Intake Visit Reasons: 6M PSA/Testo(set) Intake Note: Reason for Visit: PSA/Testosterone Results Urology Meds: Tadalafil Blood Thinners: None Labs: PSA- 1.56 Testosterone: 364 (09/01/2025) A1C- 5.8 (03/08/2025) Imaging: None Last PVR: None Symptoms: Patient reports no symptoms Coke Oven Patcher Required: No Accompanied by: Self / Same As Patient Allergies No Known Allergies Allergy (Verified 09/15/25 08:48) HPI Comments Details: Tank is a pleasant male. He is a patient of Dr. Elliott. He is seen for the following urologic conditions - Peyronies disease - erectile dysfunction - borderline low testosterone Six-month follow-up Had responded well to clomiphene previously Current testosterone 364 which is reasonable PSA 1.6 Continue with current therapy for erections 12 month follow-up Low testosterone Good response to clomiphene 50 mg q.o.d. Labs - 11/11 164, 05/11 230, 07/12 T 620 LH 3.1, 01/10 783 P1.4, 02/11 T 295 Clomid stopped January 10 Erectile dysfunction Responded well to combination tadalafil and pentoxifylline PSA 02/11 1.5, 03/14 1.6 Peyronie's disease Previously response to pentoxifylline Primary complaint is - penile curvature The problem has been present - since March 2021 At this time he experiences - partial erections sufficient for penetrative intercourse [place] has - can be achieved however is uncomfortable On exam has thickening of dorsal left Associated symptoms include penile pain No penile discharge No Prior management includes - Associated conditions history of penile trauma No CAD No - does have dyslipidemia diabetes No erectile dysfunction No hypertension yes peripheral vascular disease No Investigations - 11/11 T 165, 05/11 230 LH 1.3 Therapeutic plan continue conservative therapy PFSH Medical History History of adenomatous polyp of colon Ascending aortic aneurysm Acute appendicitis Anxiety Obesity (BMI 30-39.9) Insomnia GERD without esophagitis Impacted cerumen, left ear Tubular adenoma of colon Vitamin D deficiency Dyslipidemia Essential hypertension Family history of coronary artery disease Surgical History S/P appendectomy History of colonoscopy with polypectomy Family History Mother Diabetes Heart problem CVA (cerebral vascular accident) Father Heart problem Social History Household Members: Spouse Housing: House Do you presently have visiting nurse or other home services: No Alcohol intake: current Alcohol intake frequency: holidays/special occasions only Patient Tobacco Use Status: Former Tobacco user e-Cigarette/Vaping Use: Never Used Substance Use Type: Marijuana Advance Directives Date on File: 08/22/20 service: No Current occupational status: retired Cognitive needs: No Hearing needs: No Vision needs: Yes (glasses) Review of Systems Const Denies chills and Denies fever(s) Card Reports no additional complaints and Denies syncope Resp Denies cough GI Denies abdominal pain and Denies heartburn Reports as per HPI and Denies change in libido Neuro Denies syncope Psych Denies change in libido Endo Denies change in libido Physical Exam Const General: cooperative, healthy appearing, comfortable and no acute distress Orientation/consciousness: patient oriented x3 HEENT Face and sinus: Yes normal facial exam Mouth: moist mucous membranes Neck Neck: Yes normal visual inspection, Yes full ROM and Yes trachea midline Chest Chest palpation & inspection: normal inspection of the chest Resp Effort & Inspection: normal respiratory effort, able to speak in complete sentences and no respiratory distress GI Inspection: Yes normal to inspection Back/Spine/Pelvis Cervical Spine: normal cervical lordosis Thoracic/Lumbar Spine: thoracic and lumbar spine normal to inspection Skin General skin exam: no rashes or lesions noted Neuro General: patient oriented x3, gait normal, tone normal and moves all extremities Extrem General: Yes normal to inspection and Yes capillary refill normal Assessment & Plan Assessment & Plan (1) Erectile dysfunction due to arterial insufficiency: Code(s): N52.01 - Erectile dysfunction due to arterial insufficiency Category: Medical (2) Peyronie's disease: Code(s): N48.6 - Induration penis plastica Category: Medical (3) Hypogonadism in male: Code(s): E29.1 - Testicular hypofunction Category: Medical Plan Twelve month follow-up Orders: Orders Testosterone, Total 12 Months N52.01 - Erectile dysfunction due to arterial insufficiency Prostate Specific Antigen 12 Months N52.01 - Erectile dysfunction due to arterial insufficiency Medications: Refilled tadalafil 5 mg PO DAILY 90 tabs 3RF sexual activity 90 days N48.6 - Induration penis plastica, N52.01 - Erectile dysfunction due to arterial insufficiency Patient Instructions: This note is constructed using voice recognition software. While every effort has been made to ensure accuracy adult literacy teacher errors may have been included. Imaging studies, laboratory and physical exam results were discussed and reviewed in detail. No major barriers to patient understanding were identified. An opportunity to ask questions regarding the treatment plan was provided. All questions were answered. The patient expressed understanding and agreement with the above treatment plan. The patient is aware they should contact our office by phone for worsening of their current condition or the appearance of new urologic symptoms. Compliance is encouraged with any medications and followup testing that is ordered. It is a privilege to participate in the urologic care of your patient. If you have any questions or concerns regarding treatment for the above conditions, or other urologic issues, please do not hesitate to contact me. The office telephone contact is [phone]. Sincerely, Dr Mukesh Campbell MD, [facility] - Urology Compassionate Specialist Care for the Genitourinary System Coding Level of Care Code Complex visit Add On G2211 Diagnoses Erectile dysfunction due to arterial insufficiency N52.01 Peyronie's disease N48.6 Hypogonadism in male E29.1
== END 2025-09-15 08:55 | disposition home or self-care (01) ==
LOC: HO.HUSH 08:39
PROVIDERS: PCP Internal Medicine; Visit Provider Urology
DX: N52.01 Erectile dysfunction due to arterial insufficiency (principal); N48.6 Induration penis plastica; E29.1 Testicular hypofunction
CPT/HCPCS: 99214